=== PATIENT | female | born 1945 | race Caucasian/White ===

== ENCOUNTER 2024-02-27 12:03 | Emergency (ER) | payer OTHER, SELFPAY ==
[2024-02-27 12:39] VITALS: BP 200/103
[2024-02-27 12:57] LABS: % Basophils 0.3 % (0-2); % Eosinophils 1.4 % (0-6); % Immature Granulocytes 0.3 % (0-0.5); % Lymphocytes 31.3 % (20.5-51.1); % Monocytes 9.2 % (1.7-9.3); % Neutrophils 57.5 % (42.2-75.2); Absolute Eosinophils 0.1 10^3/uL (0-0.7); Absolute Lymphocytes 2.2 10^3/uL (1.2-3.4); Absolute Monocytes 0.7 10^3/uL (0.1-0.6); Hematocrit 38.4 % (37.0-47.0); Hemoglobin 12.4 g/dL (12.0-16.0); Mean Corp Hgb Conc. 32.3 g/dL (33.0-37.0); Mean Corpuscular Hgb 31.8 pg (27.0-31.0); Mean Corpuscular Volume 98.5 fL (81.0-99.0); Mean Platelet Volume 9.6 fL (7.4-10.4); Nucleated Red Blood Cells % 0 %; Platelet Count 226 10^3/uL (130-400); Red Cell Dist. Width 12.8 % (11.5-14.5)
[2024-02-27 13:09] LABS: ALT (SGPT) 19 U/L (0-35); AST (SGOT) 30 U/L (14-36); Albumin 4.4 g/dl (3.5-5.0); Alkaline Phosphatase 64 U/L (38-126); Blood Urea Nitrogen 26 mg/dl (7-17); Calcium 9.4 mg/dl (8.4-10.2); Carbon Dioxide 29 mmol/L (22-30); Chloride 106 mmol/L (98-107); Glucose 99 mg/dl (70-99); Potassium 4.3 mmol/L (3.5-5.1); Sodium 142 mmol/L (135-145); Total Bilirubin 0.3 mg/dl (0.2-1.3); Total Protein 7.6 g/dl (6.3-8.2); eGFR > 60.00
--- NOTE | 2024-02-27 14:07 | ED.GENMED ---
History of Present Illness
General
Chief Complaint: Musculo-Skeletal Complaint
Time Seen by Provider: 02/27/24 12:56
Travel History
Have you had any contact with someone who has COVID-19?: No
Do you have any symptoms of coronavirus? Fever > 100 degrees, chills, cough, shortness of breath, sore throat, loss of taste or smell, muscle aches, or headache?: No
History of Present Illness
History of Present Illness:
78-year-old female presents to the emergency department for evaluation of right foot and ankle swelling for the past 5 days. Denies any acute trauma. Able to bear weight with discomfort. No fevers or chills. Denies any wounds to the lower
extremity
Past History
Past History
ED Past Medical History: Other (bladder prolapse)
ED Past Surgical History: None
Social History
Tobacco: Non-smoker
Alcohol: None
Drug: None
Personal:
Living: with family
Employment: Not employed
Review of Systems
Review of Systems
Allergies reviewed?: Yes
All Other Systems: ROS reviewed and negative except as documented in HPI and ROS
Phy Exam
Physical Exam
Physical Exam:
GEN: Well appearing, NAD, WDWN
HEENT: Oral mucosa moist, no scleral icterus
Cardiac: Regular rate
Lung: No respiratory distress, no tachypnea
MSK: No gross deformity or injuries. 2+ pitting edema to the right lower extremity to the mid lower leg, nontender to palpation, mild warmth with changes of venous stasis dermatitis
Skin: Good color, no pallor or jaundice, no rashes
Neuro: AO x3, moves all extremities freely
Psych: Calm, cooperative
Course
Orders/Labs/Results
Orders:
Orders
02/27/24 12:45
US Periph Venous LOWER Ext RT Urgent
Comment:
Reason For Exam: right calf swelling with pain
02/27/24 12:47
Complete Blood Count/With Diff Urgent
Comprehensive Metabolic Panel Urgent
Abnormal Lab Results
02/27/24
12:47
RBC 3.90 L 10^6/uL
(4.20-5.40)
MCH 31.8 H pg
(27.0-31.0)
MCHC 32.3 L g/dL
(33.0-37.0)
Absolute Monos (auto) 0.7 H 10^3/uL
(0.1-0.6)
BUN 26 H mg/dl
(7-17)
02/27/24 12:47
02/27/24 12:47
Vital Signs
Initial and Last Documented VS:
Initial Vital Signs
Temp Pulse Resp BP Pulse Ox
97.7 F 77 16 200/103 98
02/27/24 12:39 02/27/24 12:39 02/27/24 12:39 02/27/24 12:39 02/27/24 12:39
Last Documented Vital Signs
Temp Pulse Resp BP Pulse Ox
97.7 F 80 18 202/105 99
02/27/24 12:39 02/27/24 14:31 02/27/24 14:31 02/27/24 14:31 02/27/24 14:31
MDM/Problems Addressed
MDM/Problems Addressed:
Workup was unremarkable, no evidence for DVT. Patient started on oral antibiotics empirically, recommend compression and elevation for at least 24 to 48 hours conservatively before starting antibiotics. She has noted to be markedly hypertensive in
the emergency department, recommend she follow-up with her primary care physician regarding this that she has no symptoms of hypertensive urgency at this time
*Critical Care Note
Total Time (30-74mins, 75-104mins- exclusive of procedures): Not Applicable
ED Attending Note
-
Portions of this chart may have been created with voice recognition software.� Occasional wrong word or��sound alike� substitutions may have occurred due to the inherent limitations of voice recognition software.
Discharge Plan
Departure
Patient Disposition: Home (Routine Discharge)
Date of Disposition: 02/27/24
Time of Disposition: 14:07
Patient with high blood pressure during this ER visit?: Yes
Discharge Problem:
Edema of right lower leg
Instructions: Swelling
Prescriptions:
New
cephalexin 500 mg capsule
500 mg PO TID 7 Days Qty: 21 0RF
No Action
cefdinir 300 mg capsule
300 mg PO Q12H Qty: 14 0RF
phenazopyridine [Pyridium] 200 mg tablet
200 mg PO TID PRN (Reason: bladder pain) Qty: 6 0RF
Activity Restrictions/Additional Instructions:
This could be increased edema (fluid) build up related to your chronic vein insufficiency, or it could potentially be due to a superficial skin infection. If your symptoms do not improve within 48 hours of starting compression and elevation, please
start the antibiotic I have sent to your pharmacy
Interventions
Interventions:
*Risk Screen - Suicide Last Done: 02/27/24 13:33
*Neglect/Abuse Screening Last Done: 02/27/24 13:33
*ED COVID-19 Vaccine History Last Done: 02/27/24 12:39
*Nursing Disposition Last Done: 02/27/24 14:39
ED-Musculoskeletal Assessment Last Done: 02/27/24 13:33
Discharge Date and Time
Discharge Date/Time: 02/27/24 14:40
Print Language: KISWAHILI
[2024-02-27 14:31] VITALS: BP 202/105
== END 2024-02-27 14:40 | disposition home or self-care (01) ==
LOC: EMR 12:03
PROVIDERS: Emergency Medicine; EMERGENCY PHYSICIAN Emergency Medicine; FAMILY PHYSICIAN Family Medicine
DX: R60.9 Edema, unspecified (principal); R03.0 Elevated blood-pressure reading, without diagnosis of hypertension
CPT/HCPCS: 99284; 80053; 85025; 93971

== ENCOUNTER → 2024-03-02 12:28 | Outpatient (REF) | payer OTHER, SELFPAY | LOC: RAD 12:28 | PROVIDERS: ATTENDING PHYSICIAN Family Medicine | DX: M79.89 Other specified soft tissue disorders (principal) | CPT/HCPCS: 73610; 73630 ==

== ENCOUNTER → 2024-03-08 14:08 | Outpatient (REF) | payer OTHER, SELFPAY | LOC: RAD 14:08 | PROVIDERS: ATTENDING PHYSICIAN Family Medicine | DX: M79.661 Pain in right lower leg (principal); M79.89 Other specified soft tissue disorders | CPT/HCPCS: 93971 ==

== ENCOUNTER → 2024-03-20 13:11 | Outpatient (REF) | payer OTHER, SELFPAY | LOC: PAVMRI 13:11 | PROVIDERS: ATTENDING PHYSICIAN Physician Assistant Surgical; FAMILY PHYSICIAN Family Medicine | DX: M25.571 Pain in right ankle and joints of right foot (principal) | CPT/HCPCS: 73721 ==

== ENCOUNTER → 2024-03-28 10:53 | Outpatient (REF) | payer OTHER, SELFPAY | LOC: HWRAD 10:53 | PROVIDERS: ATTENDING PHYSICIAN Family Medicine; REFERRING PHYSICIAN Surgery Vascular Surgery | DX: M79.89 Other specified soft tissue disorders (principal); I87.2 Venous insufficiency (chronic) (peripheral) | CPT/HCPCS: 93970 ==

== ENCOUNTER → 2024-04-13 09:01 | Outpatient (REF) | payer OTHER, SELFPAY | LOC: RAD 09:01 | PROVIDERS: ATTENDING PHYSICIAN Family Medicine | DX: I82.90 Acute embolism and thrombosis of unspecified vein (principal) | CPT/HCPCS: 93971 ==

== ENCOUNTER → 2024-06-12 08:04 | Outpatient (REF) | payer OTHER, SELFPAY | LOC: HWEVLT 08:04 | PROVIDERS: ATTENDING PHYSICIAN Radiology Diagnostic Radiology | DX: I83.891 Varicose veins of right lower extremity with other complications (principal) | CPT/HCPCS: 36478; C1769 ==

== ENCOUNTER → 2024-06-26 11:07 | Outpatient (REF) | payer OTHER, SELFPAY | LOC: HWEVLT 11:07 | PROVIDERS: ATTENDING PHYSICIAN Radiology Vascular & Interventional Radiology | DX: I83.891 Varicose veins of right lower extremity with other complications (principal) | CPT/HCPCS: 93971 ==

== ENCOUNTER → 2024-07-12 12:34 | Outpatient (REF) | payer OTHER, SELFPAY | LOC: WOUND 12:34 | PROVIDERS: ATTENDING PHYSICIAN Surgery; FAMILY PHYSICIAN Family Medicine | DX: I87.311 Chronic venous hypertension (idiopathic) with ulcer of right lower extremity (principal); L97.312 Non-pressure chronic ulcer of right ankle with fat layer exposed; I73.9 Peripheral vascular disease, unspecified; I87.2 Venous insufficiency (chronic) (peripheral); G89.29 Other chronic pain; Z79.1 Long term (current) use of non-steroidal anti-inflammatories (NSAID) | CPT/HCPCS: 11042; 99204 ==

== ENCOUNTER → 2024-07-24 13:52 | Outpatient (REF) | payer OTHER, SELFPAY | LOC: WOUND 13:52 | PROVIDERS: ATTENDING PHYSICIAN Surgery; FAMILY PHYSICIAN Family Medicine | DX: I87.311 Chronic venous hypertension (idiopathic) with ulcer of right lower extremity (principal); L97.312 Non-pressure chronic ulcer of right ankle with fat layer exposed; I73.9 Peripheral vascular disease, unspecified; I87.2 Venous insufficiency (chronic) (peripheral); G89.29 Other chronic pain; Z79.1 Long term (current) use of non-steroidal anti-inflammatories (NSAID) | CPT/HCPCS: 97597 ==

== ENCOUNTER → 2024-08-01 09:56 | Outpatient (REF) | payer OTHER, SELFPAY | LOC: RAD 09:56 | PROVIDERS: ATTENDING PHYSICIAN Surgery; FAMILY PHYSICIAN Family Medicine | DX: I87.311 Chronic venous hypertension (idiopathic) with ulcer of right lower extremity (principal); I73.9 Peripheral vascular disease, unspecified | CPT/HCPCS: 93922; 93925 ==

== ENCOUNTER → 2024-08-07 09:49 | Outpatient (REF) | payer OTHER, SELFPAY | LOC: WOUND 09:49 | PROVIDERS: ATTENDING PHYSICIAN Surgery; FAMILY PHYSICIAN Family Medicine | DX: I87.313 Chronic venous hypertension (idiopathic) with ulcer of bilateral lower extremity (principal); L97.322 Non-pressure chronic ulcer of left ankle with fat layer exposed; L97.312 Non-pressure chronic ulcer of right ankle with fat layer exposed; I73.9 Peripheral vascular disease, unspecified; I87.2 Venous insufficiency (chronic) (peripheral); Z79.1 Long term (current) use of non-steroidal anti-inflammatories (NSAID); G89.29 Other chronic pain | CPT/HCPCS: 11042 ==

== ENCOUNTER → 2024-08-21 09:51 | Outpatient (REF) | payer OTHER, SELFPAY | LOC: WOUND 09:51 | PROVIDERS: ATTENDING PHYSICIAN Surgery; FAMILY PHYSICIAN Family Medicine | DX: I87.313 Chronic venous hypertension (idiopathic) with ulcer of bilateral lower extremity (principal); L97.322 Non-pressure chronic ulcer of left ankle with fat layer exposed; L97.312 Non-pressure chronic ulcer of right ankle with fat layer exposed; I73.9 Peripheral vascular disease, unspecified; I87.2 Venous insufficiency (chronic) (peripheral); G89.29 Other chronic pain; Z79.1 Long term (current) use of non-steroidal anti-inflammatories (NSAID) | CPT/HCPCS: 11042 ==

== ENCOUNTER → 2024-09-04 09:48 | Outpatient (REF) | payer OTHER, SELFPAY | LOC: WOUND 09:48 | PROVIDERS: ATTENDING PHYSICIAN Surgery; FAMILY PHYSICIAN Family Medicine | DX: I87.313 Chronic venous hypertension (idiopathic) with ulcer of bilateral lower extremity (principal); L97.322 Non-pressure chronic ulcer of left ankle with fat layer exposed; L97.312 Non-pressure chronic ulcer of right ankle with fat layer exposed; I73.9 Peripheral vascular disease, unspecified; I87.2 Venous insufficiency (chronic) (peripheral); G89.29 Other chronic pain; Z79.1 Long term (current) use of non-steroidal anti-inflammatories (NSAID) | CPT/HCPCS: 11042; 97597 ==

== ENCOUNTER → 2024-09-18 09:46 | Outpatient (REF) | payer OTHER, SELFPAY | LOC: WOUND 09:46 | PROVIDERS: ATTENDING PHYSICIAN Surgery; FAMILY PHYSICIAN Family Medicine | DX: I87.313 Chronic venous hypertension (idiopathic) with ulcer of bilateral lower extremity (principal); L97.322 Non-pressure chronic ulcer of left ankle with fat layer exposed; L97.312 Non-pressure chronic ulcer of right ankle with fat layer exposed; I73.9 Peripheral vascular disease, unspecified; I87.2 Venous insufficiency (chronic) (peripheral); G89.29 Other chronic pain; Z79.1 Long term (current) use of non-steroidal anti-inflammatories (NSAID) | CPT/HCPCS: 11042; 97597 ==

== ENCOUNTER → 2024-09-19 11:52 | Outpatient (REF) | payer OTHER, SELFPAY | LOC: WDC 11:52 | PROVIDERS: ATTENDING PHYSICIAN Family Medicine | DX: Z12.31 Encounter for screening mammogram for malignant neoplasm of breast (principal) | CPT/HCPCS: 77063; 77067 ==

== ENCOUNTER → 2024-10-26 10:12 | Outpatient (REF) | payer OTHER, SELFPAY | LOC: WOUND 10:12 | PROVIDERS: ATTENDING PHYSICIAN Surgery; FAMILY PHYSICIAN Family Medicine | DX: I87.313 Chronic venous hypertension (idiopathic) with ulcer of bilateral lower extremity (principal); L97.322 Non-pressure chronic ulcer of left ankle with fat layer exposed; L97.312 Non-pressure chronic ulcer of right ankle with fat layer exposed; I73.9 Peripheral vascular disease, unspecified; I87.2 Venous insufficiency (chronic) (peripheral); G89.29 Other chronic pain; Z79.1 Long term (current) use of non-steroidal anti-inflammatories (NSAID) | CPT/HCPCS: 11042 ==

== ENCOUNTER → 2024-11-26 09:49 | Outpatient (REF) | payer OTHER, SELFPAY | LOC: WOUND 09:49 | PROVIDERS: ATTENDING PHYSICIAN Surgery; FAMILY PHYSICIAN Family Medicine | DX: I87.313 Chronic venous hypertension (idiopathic) with ulcer of bilateral lower extremity (principal); L97.322 Non-pressure chronic ulcer of left ankle with fat layer exposed; L97.312 Non-pressure chronic ulcer of right ankle with fat layer exposed; I73.9 Peripheral vascular disease, unspecified; I87.2 Venous insufficiency (chronic) (peripheral); Z79.1 Long term (current) use of non-steroidal anti-inflammatories (NSAID); G89.29 Other chronic pain | CPT/HCPCS: 11042 ==

== ENCOUNTER → 2024-12-24 09:49 | Outpatient (REF) | payer OTHER, SELFPAY | LOC: WOUND 09:49 | PROVIDERS: ATTENDING PHYSICIAN Surgery; FAMILY PHYSICIAN Family Medicine | DX: I87.313 Chronic venous hypertension (idiopathic) with ulcer of bilateral lower extremity (principal); L97.322 Non-pressure chronic ulcer of left ankle with fat layer exposed; I73.9 Peripheral vascular disease, unspecified; I87.2 Venous insufficiency (chronic) (peripheral); Z79.1 Long term (current) use of non-steroidal anti-inflammatories (NSAID); G89.29 Other chronic pain | CPT/HCPCS: 11042 ==

== ENCOUNTER → 2025-01-21 09:48 | Outpatient (REF) | payer OTHER, SELFPAY | LOC: WOUND 09:48 | PROVIDERS: ATTENDING PHYSICIAN Surgery; FAMILY PHYSICIAN Family Medicine | DX: I87.313 Chronic venous hypertension (idiopathic) with ulcer of bilateral lower extremity (principal); L97.322 Non-pressure chronic ulcer of left ankle with fat layer exposed; I73.9 Peripheral vascular disease, unspecified; G89.29 Other chronic pain; I87.2 Venous insufficiency (chronic) (peripheral); Z79.1 Long term (current) use of non-steroidal anti-inflammatories (NSAID) | CPT/HCPCS: 11042 ==

== ENCOUNTER → 2025-02-05 09:44 | Outpatient (REF) | payer OTHER, SELFPAY | LOC: WOUND 09:44 | PROVIDERS: ATTENDING PHYSICIAN Surgery; FAMILY PHYSICIAN Family Medicine | DX: I87.313 Chronic venous hypertension (idiopathic) with ulcer of bilateral lower extremity (principal); L97.322 Non-pressure chronic ulcer of left ankle with fat layer exposed; I73.9 Peripheral vascular disease, unspecified; I87.2 Venous insufficiency (chronic) (peripheral); G89.29 Other chronic pain; Z79.1 Long term (current) use of non-steroidal anti-inflammatories (NSAID) | CPT/HCPCS: 99213 ==

== ENCOUNTER → 2025-02-19 09:45 | Outpatient (REF) | payer OTHER, SELFPAY | LOC: WOUND 09:45 | PROVIDERS: ATTENDING PHYSICIAN Surgery; FAMILY PHYSICIAN Family Medicine | DX: I87.313 Chronic venous hypertension (idiopathic) with ulcer of bilateral lower extremity (principal); L97.322 Non-pressure chronic ulcer of left ankle with fat layer exposed; I73.9 Peripheral vascular disease, unspecified; I87.2 Venous insufficiency (chronic) (peripheral); G89.29 Other chronic pain; Z79.01 Long term (current) use of anticoagulants | CPT/HCPCS: 97597 ==

== ENCOUNTER → 2025-03-12 10:02 | Outpatient (REF) | payer OTHER, SELFPAY | LOC: WOUND 10:02 | PROVIDERS: ATTENDING PHYSICIAN Surgery; FAMILY PHYSICIAN Family Medicine | DX: I87.313 Chronic venous hypertension (idiopathic) with ulcer of bilateral lower extremity (principal); L97.322 Non-pressure chronic ulcer of left ankle with fat layer exposed; I73.9 Peripheral vascular disease, unspecified; I87.2 Venous insufficiency (chronic) (peripheral); G89.29 Other chronic pain; Z79.1 Long term (current) use of non-steroidal anti-inflammatories (NSAID) | CPT/HCPCS: 97597 ==

== ENCOUNTER → 2025-04-01 10:00 | Outpatient (REF) | payer OTHER, SELFPAY | LOC: WOUND 10:00 | PROVIDERS: ATTENDING PHYSICIAN Surgery; FAMILY PHYSICIAN Family Medicine | DX: I87.313 Chronic venous hypertension (idiopathic) with ulcer of bilateral lower extremity (principal); L97.322 Non-pressure chronic ulcer of left ankle with fat layer exposed; I73.9 Peripheral vascular disease, unspecified; I87.2 Venous insufficiency (chronic) (peripheral); G89.29 Other chronic pain; Z79.1 Long term (current) use of non-steroidal anti-inflammatories (NSAID) | CPT/HCPCS: 99213 ==

== ENCOUNTER → 2025-04-16 09:49 | Outpatient (REF) | payer OTHER, SELFPAY | LOC: WOUND 09:49 | PROVIDERS: ATTENDING PHYSICIAN Surgery; FAMILY PHYSICIAN Family Medicine | DX: I87.313 Chronic venous hypertension (idiopathic) with ulcer of bilateral lower extremity (principal); L97.322 Non-pressure chronic ulcer of left ankle with fat layer exposed; I73.9 Peripheral vascular disease, unspecified; G89.29 Other chronic pain; I87.2 Venous insufficiency (chronic) (peripheral); Z79.1 Long term (current) use of non-steroidal anti-inflammatories (NSAID) | CPT/HCPCS: 99212 ==

== ENCOUNTER → 2025-05-14 10:16 | Outpatient (REF) | payer OTHER, SELFPAY | LOC: WOUND 10:16 | PROVIDERS: ATTENDING PHYSICIAN Surgery; FAMILY PHYSICIAN Family Medicine | DX: L97.222 Non-pressure chronic ulcer of left calf with fat layer exposed (principal); L88 Pyoderma gangrenosum; I77.6 Arteritis, unspecified; I87.2 Venous insufficiency (chronic) (peripheral); I87.8 Other specified disorders of veins; Z79.1 Long term (current) use of non-steroidal anti-inflammatories (NSAID) | CPT/HCPCS: 11042; 99213 ==

== ENCOUNTER → 2025-05-21 09:50 | Outpatient (REF) | payer OTHER, SELFPAY | LOC: WOUND 09:50 | PROVIDERS: ATTENDING PHYSICIAN Surgery; FAMILY PHYSICIAN Family Medicine | DX: L97.222 Non-pressure chronic ulcer of left calf with fat layer exposed (principal); L88 Pyoderma gangrenosum; I77.6 Arteritis, unspecified; I87.2 Venous insufficiency (chronic) (peripheral); I87.8 Other specified disorders of veins; Z79.1 Long term (current) use of non-steroidal anti-inflammatories (NSAID) | CPT/HCPCS: 99213 ==

== ENCOUNTER → 2025-05-28 09:50 | Outpatient (REF) | payer OTHER, SELFPAY | LOC: WOUND 09:50 | PROVIDERS: ATTENDING PHYSICIAN Surgery; FAMILY PHYSICIAN Family Medicine | DX: L97.222 Non-pressure chronic ulcer of left calf with fat layer exposed (principal); L88 Pyoderma gangrenosum; I77.6 Arteritis, unspecified; I87.2 Venous insufficiency (chronic) (peripheral); I87.8 Other specified disorders of veins; Z79.1 Long term (current) use of non-steroidal anti-inflammatories (NSAID) | CPT/HCPCS: 11104; 11105; 88305; 99213 ==

== ENCOUNTER → 2025-06-11 09:52 | Outpatient (REF) | payer OTHER, SELFPAY | LOC: WOUND 09:52 | PROVIDERS: ATTENDING PHYSICIAN Surgery; FAMILY PHYSICIAN Family Medicine | DX: L97.222 Non-pressure chronic ulcer of left calf with fat layer exposed (principal); L88 Pyoderma gangrenosum; I77.6 Arteritis, unspecified; I87.2 Venous insufficiency (chronic) (peripheral); I87.8 Other specified disorders of veins; Z79.1 Long term (current) use of non-steroidal anti-inflammatories (NSAID) | CPT/HCPCS: 99213 ==

== ENCOUNTER → 2025-06-25 09:18 | Outpatient (REF) | payer OTHER, SELFPAY | LOC: WOUND 09:18 | PROVIDERS: ATTENDING PHYSICIAN Surgery; FAMILY PHYSICIAN Family Medicine | DX: L97.222 Non-pressure chronic ulcer of left calf with fat layer exposed (principal); L88 Pyoderma gangrenosum; I77.6 Arteritis, unspecified; I87.2 Venous insufficiency (chronic) (peripheral); I87.8 Other specified disorders of veins; Z79.1 Long term (current) use of non-steroidal anti-inflammatories (NSAID) | CPT/HCPCS: 99213 ==

== ENCOUNTER → 2025-07-01 10:49 | Outpatient (REF) | payer OTHER, SELFPAY | LOC: WOUND 10:49 | PROVIDERS: ATTENDING PHYSICIAN Surgery; FAMILY PHYSICIAN Family Medicine | DX: L97.222 Non-pressure chronic ulcer of left calf with fat layer exposed (principal); L88 Pyoderma gangrenosum; I77.6 Arteritis, unspecified; I87.2 Venous insufficiency (chronic) (peripheral); Z79.1 Long term (current) use of non-steroidal anti-inflammatories (NSAID); I87.8 Other specified disorders of veins | CPT/HCPCS: 99214 ==

== ENCOUNTER 2025-07-06 10:53 | Emergency (ER) | payer OTHER, SELFPAY ==
[2025-07-06 11:02] VITALS: BP 177/96
--- NOTE | 2025-07-06 13:14 | ED.GENMED ---
History of Present Illness
General
Chief Complaint: DVT/Possible Blood Clot
Time Seen by Provider: 07/06/25 12:56
History of Present Illness
History of Present Illness:
80-year-old female with history of venous insufficiency presents to the emergency department for evaluation of redness swelling and pain to the left lower leg, she has a chronic wound for the past several months to the left posterior calf and is
following with wound care. 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 Over the past 3 weeks she has had progressively worsening edema and erythema, was told this was likely related to the biopsy but has not been on any
antibiotics. Denies fevers or chills. No difficulty walking.
Past History
Past History
ED Past Medical History: Other (bladder prolapse)
ED Past Surgical History: None
Social History
Tobacco: Non-smoker
Alcohol: None
Drug: None
Personal:
Living: with family
Employment: Not employed
Review of Systems
Review of Systems
Allergies reviewed?: Yes
All Other Systems: ROS reviewed and negative except as documented in HPI and ROS
Phy Exam
Physical Exam
Physical Exam:
GEN: Well appearing, NAD, WDWN
HEENT: Oral mucosa moist, no scleral icterus
Cardiac: Regular rate
Lung: No respiratory distress, no tachypnea
MSK: No gross deformity or injuries
Skin: Good color, no pallor or jaundice, large ulceration to the left posterior calf with granulation tissue at the base, no purulent discharge. Moderate erythema and swelling extending from the wound proximally and distally along the calf and
anterior leg with exquisite tenderness to palpation
Neuro: AO x3, moves all extremities freely
Psych: Calm, cooperative
Course
Orders/Labs/Results
Orders:
Orders
07/06/25 10:55
Legs, left US [US Periph Venous LOWER Ext LT] Urgent
Comment:
Reason For Exam: pain swelling
Vital Signs
Initial and Last Documented VS:
Initial Vital Signs
Temp Pulse Resp BP Pulse Ox
97.4 F 90 16 177/96 98
07/06/25 11:02 07/06/25 11:02 07/06/25 11:02 07/06/25 11:02 07/06/25 11:02
Last Documented Vital Signs
Temp Pulse Resp BP Pulse Ox
97.4 F 90 16 177/96 98
07/06/25 11:02 07/06/25 11:02 07/06/25 11:02 07/06/25 11:02 07/06/25 13:14
MDM/Problems Addressed
MDM/Problems Addressed:
The area around the wound appears cellulitic at this time and we will treat appropriately with course of oral antibiotics. Encouraged continued wound care. At this time she is afebrile and well-appearing do not see any indication for labs or IV
antibiotics
*Pulse Oximetry
SaO2: 98
Oxygen Mode of Delivery: Room air
Patient hypoxic: no
*Critical Care Note
Total Time (30-74mins, 75-104mins- exclusive of procedures): Not Applicable
ED Attending Note
-
Portions of this chart may have been created with voice recognition software.� Occasional wrong word or��sound alike� substitutions may have occurred due to the inherent limitations of voice recognition software.
Discharge Plan
Departure
Patient Disposition: Home (Routine Discharge)
Date of Disposition: 07/06/25
Time of Disposition: 13:14
Patient with high blood pressure during this ER visit?: No
Discharge Problem:
Cellulitis of left lower extremity, Leukoclastic vasculitis
Prescriptions:
New
cephalexin 500 mg capsule
500 mg PO QID 7 Days Qty: 28 0RF
No Action
cefdinir 300 mg capsule
300 mg PO Q12H Qty: 14 0RF
phenazopyridine [Pyridium] 200 mg tablet
200 mg PO TID PRN (Reason: bladder pain) Qty: 6 0RF
cephalexin 500 mg capsule
500 mg PO TID 7 Days Qty: 21 0RF
Referrals:
Jarrell Grimes DO [Family Provider, Family Practice]
Interventions
Interventions:
*Risk Screen - Suicide Last Done: 07/06/25 11:02
*General Assessment Last Done: 07/06/25 13:51
*Neglect/Abuse Screening Last Done: 07/06/25 11:02
*ED- Fall Risk Assessment Last Done: 07/06/25 12:19
*ED COVID-19 Vaccine History Last Done: 07/06/25 12:49
*Nursing Disposition Last Done: 07/06/25 13:51
ED- Cardiac Assessment Last Done: 07/06/25 12:20
ED- Pulmonary Assessment Last Done: 07/06/25 12:20
ED-Peripheral Vascular Assessment Last Done: 07/06/25 12:20
ED-Skin Assessment Last Done: 07/06/25 12:20
Discharge Date and Time
Discharge Date/Time: 07/06/25 13:40
Print Language: SLOVENIAN
== END 2025-07-06 13:40 | disposition home or self-care (01) ==
LOC: EMR 10:53
PROVIDERS: EMERGENCY PHYSICIAN Student in an Organized Health Care Education/Training Program; FAMILY PHYSICIAN Family Medicine
DX: L03.116 Cellulitis of left lower limb (principal); I77.6 Arteritis, unspecified; G89.29 Other chronic pain
CPT/HCPCS: 99284; 93971

== ENCOUNTER 2025-07-09 20:20 | Inpatient (IN) | payer OTHER, SELFPAY ==
[2025-07-09] VITALS (9 sets, daily range): BP systolic 163–221; BP diastolic 74–110; BMI 20.1; BMI 19.3
[2025-07-09 15:21] LABS: Hematocrit 38.9 % (37.0-47.0); Hemoglobin 12.8 g/dL (12.0-16.0); Mean Corp Hgb Conc. 32.9 g/dL (33.0-37.0); Mean Corpuscular Volume 100.0 fL (81.0-99.0); Nucleated Red Blood Cells % 0 %; Platelet Count 294 10^3/uL (130-400); Red Cell Dist. Width 12.5 % (11.5-14.5)
[2025-07-09 15:39] LABS: ALT (SGPT) 19 U/L (0-35); AST (SGOT) 26 U/L (14-36); Albumin 4.5 g/dl (3.5-5.0); Alkaline Phosphatase 67 U/L (38-126); Blood Urea Nitrogen 26 mg/dl (7-17); Calcium 9.6 mg/dl (8.4-10.2); Carbon Dioxide 25 mmol/L (22-30); Chloride 108 mmol/L (98-107); Glucose 119 mg/dl (70-99); Potassium 4.8 mmol/L (3.5-5.1); Sodium 140 mmol/L (135-145); Total Protein 7.9 g/dl (6.3-8.2); eGFR 50.17
--- NOTE | 2025-07-09 18:39 | ED.GENMED ---
History of Present Illness
<Radu Anderson PA-C - Last Filed: 07/09/25 19:20>
General
Chief Complaint: Skin Problem
Time Seen by Provider: 07/09/25 17:57
History of Present Illness
History of Present Illness:
80-year-old female presents to the emergency department for nonimprovement of her left lower extremity chronic wound associated with redness and pain. I saw this patient 3 days ago for the same complaint at that time the DVT study was negative.
She has had this wound for several months and did have an outpatient biopsy performed by wound care which showed leukoclastic vasculitis. Saw her activities specialist today who referred her into the emergency department for further evaluation and
vascular surgery consultation. The patient does not have any claudication symptoms.
Past History
<Radu Anderson PA-C - Last Filed: 07/09/25 19:20>
Past History
ED Past Medical History: Other (bladder prolapse)
ED Past Surgical History: None
Social History
Tobacco: Non-smoker
Alcohol: None
Drug: None
Personal:
Living: with family
Employment: Not employed
Review of Systems
<Radu Anderson PA-C - Last Filed: 07/09/25 19:20>
Review of Systems
Allergies reviewed?: Yes
All Other Systems: ROS reviewed and negative except as documented in HPI and ROS
Phy Exam
<Radu Anderson PA-C - Last Filed: 07/09/25 19:20>
Physical Exam
Physical Exam:
GEN: Well appearing, NAD, WDWN
HEENT: Oral mucosa moist, no scleral icterus
Cardiac: Regular rate
Lung: No respiratory distress, no tachypnea
MSK: No gross deformity or injuries
Skin: Good color, no pallor or jaundice, large wound with central granulation tissue to the left posterior lower leg with moderate cellulitis extending proximally, diffuse edema of the left lower extremity. Left dorsalis pedis and posterior
tibialis pulses are strong
Neuro: AO x3, moves all extremities freely
Psych: Calm, cooperative
Course
<Radu Anderson PA-C - Last Filed: 07/09/25 19:20>
Orders/Labs/Results
Orders:
Orders
07/09/25 15:03
Complete Blood Count/With Diff Urgent
Comprehensive Metabolic Panel Urgent
Lactic Acid Q4H
Comment: ON ICE, CANCEL 2ND ORDER IF FIRST LACTIC ACID LEVEL <2
Blood Culture Urgent
RADHA Source: Blood/Venous
Specimen Description:
07/09/25 18:04
Blood Culture Urgent
RADHA Source: Blood/Venous
Specimen Description:
07/09/25 18:22
Vancomycin [Vancocin] 1,500 mg 0.9% Sodium Chloride 500 ml [Nss] 500 ml IV NOW
07/09/25 18:38
Labetalol HCl [Trandate] 10 mg IV NOW STA
07/09/25 18:58
Wound Culture [Wound/Abscess/Other Culture] Urgent
RADHA Source: Leg
Specimen Description: Left
Date Specimen was Collected: 07/09/25
Time Specimen was Collected: 19:00
07/09/25 19:00
Lactic Acid Q4H
Comment: ON ICE, CANCEL 2ND ORDER IF FIRST LACTIC ACID LEVEL <2
07/09/25 19:07
Oxycodone [Roxicodone] 5 mg PO NOW STA
Abnormal Lab Results
07/09/25
15:03
RBC 3.89 L 10^6/uL
(4.20-5.40)
MCV 100.0 H fL
(81.0-99.0)
MCH 32.9 H pg
(27.0-31.0)
MCHC 32.9 L g/dL
(33.0-37.0)
Abs Immat Gran (auto) 0.1 H 10^3/uL
(0-0.05)
Absolute Monos (auto) 0.8 H 10^3/uL
(0.1-0.6)
Immature Gran % 0.7 H %
(0-0.5)
Chloride 108 H mmol/L
(98-107)
BUN 26 H mg/dl
(7-17)
Creatinine 1.1 H mg/dL
(0.6-1.0)
Glucose 119 H mg/dl
(70-99)
07/09/25 15:03
07/09/25 15:03
Vital Signs
Initial and Last Documented VS:
Initial Vital Signs
Temp Pulse Resp BP Pulse Ox
98.2 F 110 18 182/110 96
07/09/25 14:53 07/09/25 14:53 07/09/25 14:53 07/09/25 14:53 07/09/25 14:53
Last Documented Vital Signs
Temp Pulse Resp BP Pulse Ox
98.0 F 93 15 211/105 98
07/09/25 17:42 07/09/25 19:00 07/09/25 19:00 07/09/25 19:00 07/09/25 18:41
Gonzalolt;Shukri Christianson, DO - Last Filed: 07/09/25 18:56>
Orders/Labs/Results
Orders:
Orders
07/09/25 15:03
Complete Blood Count/With Diff Urgent
Comprehensive Metabolic Panel Urgent
Lactic Acid Q4H
Comment: ON ICE, CANCEL 2ND ORDER IF FIRST LACTIC ACID LEVEL <2
Blood Culture Urgent
RADHA Source: Blood/Venous
Specimen Description:
07/09/25 18:04
Blood Culture Urgent
RADHA Source: Blood/Venous
Specimen Description:
07/09/25 18:22
Vancomycin [Vancocin] 1,500 mg 0.9% Sodium Chloride 500 ml [Nss] 500 ml IV NOW
07/09/25 18:38
Labetalol HCl [Trandate] 10 mg IV NOW STA
07/09/25 18:58
Wound Culture [Wound/Abscess/Other Culture] Urgent
RADHA Source: Leg
Specimen Description: Left
Date Specimen was Collected: 07/09/25
Time Specimen was Collected: 19:00
07/09/25 19:00
Lactic Acid Q4H
Comment: ON ICE, CANCEL 2ND ORDER IF FIRST LACTIC ACID LEVEL <2
07/09/25 19:07
Oxycodone [Roxicodone] 5 mg PO NOW STA
Abnormal Lab Results
07/09/25
15:03
RBC 3.89 L 10^6/uL
(4.20-5.40)
MCV 100.0 H fL
(81.0-99.0)
MCH 32.9 H pg
(27.0-31.0)
MCHC 32.9 L g/dL
(33.0-37.0)
Abs Immat Gran (auto) 0.1 H 10^3/uL
(0-0.05)
Absolute Monos (auto) 0.8 H 10^3/uL
(0.1-0.6)
Immature Gran % 0.7 H %
(0-0.5)
Chloride 108 H mmol/L
(98-107)
BUN 26 H mg/dl
(7-17)
Creatinine 1.1 H mg/dL
(0.6-1.0)
Glucose 119 H mg/dl
(70-99)
07/09/25 15:03
07/09/25 15:03
Vital Signs
Initial and Last Documented VS:
Initial Vital Signs
Temp Pulse Resp BP Pulse Ox
98.2 F 110 18 182/110 96
07/09/25 14:53 07/09/25 14:53 07/09/25 14:53 07/09/25 14:53 07/09/25 14:53
Last Documented Vital Signs
Temp Pulse Resp BP Pulse Ox
98.0 F 93 15 211/105 98
07/09/25 17:42 07/09/25 19:00 07/09/25 19:00 07/09/25 19:00 07/09/25 18:41
<Radu Anderson PA-C - Last Filed: 07/09/25 19:20>
MDM/Problems Addressed
MDM/Problems Addressed:
Patient does not require vascular surgery consultation rather may benefit from infectious disease and/or rheumatology evaluation. Nevertheless she has persistent cellulitis that is not improving despite oral antibiotics we will admit her for IV
antibiotics and further management. She is also noted be markedly hypertensive with no signs of endorgan damage, will medicate with IV labetalol as she is currently not on any home antihypertensives
<Radu Anderson PA-C - Last Filed: 07/09/25 19:20>
*Pulse Oximetry
SaO2: 98
Oxygen Mode of Delivery: Room air
Patient hypoxic: no
*Critical Care Note
Total Time (30-74mins, 75-104mins- exclusive of procedures): Not Applicable
ED Attending Note
<Radu Anderson PA-C - Last Filed: 07/09/25 19:20>
-
Portions of this chart may have been created with voice recognition software.� Occasional wrong word or��sound alike� substitutions may have occurred due to the inherent limitations of voice recognition software.
<Shukri Christianson DO - Last Filed: 07/09/25 18:56>
ED Attending Note
Patient seen and examined by attending physician: Yes
I performed the substantive portion of visit, reviewed & personally made and approve the management plan that is documented in note by myself or BETHANY.: Yes
ED Attending Note:
I evaluated patient at bedside. I also added wound culture to the relatively large lesion at the posterior distal left lower extremity. She states that she was sent here for admission by wound care. She states that recent biopsy was consistent
with vasculitis. She has already been on oral antibiotics as an outpatient.
Discharge Plan
Departure
Patient Disposition: Admit
Date of Disposition: 07/09/25
Time of Disposition: 18:41
Admit to: Med/Surg
Presentation/result/management discussed w/ accepting MD/DO: Hospitalist
Discharge Problem:
Cellulitis of left lower extremity, Leukoclastic Vasculitis
Prescriptions:
No Action
cefdinir 300 mg capsule
300 mg PO Q12H Qty: 14 0RF
phenazopyridine [Pyridium] 200 mg tablet
200 mg PO TID PRN (Reason: bladder pain) Qty: 6 0RF
cephalexin 500 mg capsule
500 mg PO TID 7 Days Qty: 21 0RF
cephalexin 500 mg capsule
500 mg PO QID 7 Days Qty: 28 0RF
Referrals:
Jarrell Grimes DO [Family Provider, Family Practice]
Interventions
Interventions:
*Risk Screen - Suicide Last Done: 07/09/25 14:55
*Neglect/Abuse Screening Last Done: 07/09/25 14:55
ED-Skin Assessment Last Done: 07/09/25 17:42
Discharge Date and Time
Print Language: BAHRAINI
[2025-07-09] MEDS: ROXICODONE 5 MG PO (19:33)
[2025-07-09] MEDS: TRANDATE 10 MG IV (19:33)
--- NOTE | 2025-07-09 19:51 | HPS.HSE ---
Family Physician
-
Family Physician: Jarrell Grimes DO
Chief Complaint
-
LLE Wound
History of Present Illness
Patient is an 80y F with PMH significant for chronic venous insufficiency and LLE wound followed by Dr. Sanchez who presents to ED at the direction of her wound care physician for L lower extremity wound. Patient states that wound initially
started in April. She has been followed by Wound Care since that time. Patient states that she had a biopsy of the lesion a few weeks ago (05/28/25). She notes that the pain and size of the wound have increased since that biopsy. She was seen here
in the ED on 07/06 and prescribed Keflex for suspected cellulitis. Her symptoms have not improved.
She was seen by Wound Care today and referred to the ED for further evaluation.
Patient denies any systemic complaints including fevers / chills, N/V/D, etc.
Medical History
Past Medical History
Past Medical History: Reports Other
Additional Past Medical History:
Chronic Venous Insufficiency
Hypertension
Osteoporosis
Past Surgical History: Reports Other
Additional Past Surgical History:
RLE EVLT (2023)
Social History
Tobacco: Non-smoker
Alcohol: None
Drug: None
Family History
Family History: Not pertinent
Allergies / Home Medications
Allergies reflects when Allergies were last updated in [facility].
Home Medications with original date entered in [facility]
Allergy/Medication List:
Allergies
Allergy/AdvReac Type Severity Reaction Status Date / Time
No Known Allergies Allergy Verified 07/09/25 18:22
Home Medications
acetaminophen 325 mg tablet (Tylenol) 650 mg PO QID PRN pain 07/09/25
cephalexin 500 mg capsule 500 mg PO BID 07/09/25
clobetasol 0.05 % topical cream 1 applic topical BID 07/09/25
diclofenac sodium 50 mg tablet,delayed release 50 mg PO Q12H PRN pain 07/09/25
metoprolol succinate 25 mg tablet,extended release 24 hr 12.5 mg PO DAILY 07/09/25
raloxifene 60 mg tablet 60 mg PO DAILY 07/09/25
Review of Systems
-
History Source: Patient
A 12 point ROS was completed and negative except as noted: Yes
Constitutional: Denies Fever or Chills
Respiratory: Denies Cough or Trouble Breathing
Cardiac: Denies Chest Pain or Palpitations
Abdomen/GI: Denies Abdominal Pain, Nausea, Vomiting or Diarrhea
: Denies Dysuria or Flank Pain
Skin: Reports Other (L ankle wound / pain.)
Neurological: Denies Dizzy or Headache
Physical Exam
Vital Signs
Vital Signs
Temp Pulse Resp BP Pulse Ox
98.0 F 97 15 211/114 98
07/09/25 17:42 07/09/25 19:33 07/09/25 19:00 07/09/25 19:33 07/09/25 18:41
Physical Exam
General: Other (80y F in no acute distress.)
HEENT: Moist mucous membranes
Respiratory: Clear; No Wheezes, Rales or Rhonchi
Cardiac: S1/S2 and Regular Rhythm; No Murmur
GI: Soft, Non Tender, Non Distended and Normal Bowel Sounds
Skin: Other (Wound posterior aspect of the L ankle / lower leg extending to medial and lateral aspects. Minimal surrounding redness and scattered petechiae. No increased warmth.)
Neuro: AO x 3
Laboratory Results
-
07/09/25 15:03
07/09/25 15:03
Laboratory Results
Lactic Acid 1.0 mmol/L (0.7-2.0) 07/09/25 19:12
Total Bilirubin 0.3 mg/dl (0.2-1.3) 07/09/25 15:03
AST 26 U/L (14-36) 07/09/25 15:03
ALT 19 U/L (0-35) 07/09/25 15:03
Alkaline Phosphatase 67 U/L (38-126) 07/09/25 15:03
Impression/Plan
-
A/P: Patient is an 80y F with PMH significant for L ankle wound and chronic venous insufficiency who presents to ED for evaluation of worsening L ankle wound.
Leukocytoclastic Vasculitis
Left Ankle Wound
- Admit for further evaluation and treatment.
- Biopsy results from 05/28 reviewed and shows leukocytoclastic vasculitis.
- ? secondary to med effect, underlying infection, etc.
- No significant evidence of acute infectious process.
- Would observe off of further abx for now.
- PO prednisone for vasculitis and monitor for any clinical changes.
- Check inflammatory labs.
- Wound Care eval for local care recommendations.
- ID eval re: any benefit to additional abx treatment.
Uncontrolled Hypertension
- Patient with likely long history of uncontrolled hypertension couched as 'white coat syndrome'.
- Was given recent Rx from PCP for Toprol which she has yet to begin.
- Has had adverse effects in the past due to amlodipine.
- Start Toprol BID for now and titrate as needed for BP control.
- IV hydralazine for very high BP.
- Adjust regimen as needed during stay for improved control. Will likely require multiple agents.
Osteoporosis
- Hold Evista for now.
DVT Prophylaxis: Lovenox
Code Status: Full
[2025-07-09] MEDS: DELTASONE 40 MG PO (20:10)
[2025-07-09 23:36] LABS: C-Reactive Protein 15.60 mg/L (0.0-10.00)
[2025-07-09] MEDS: TOPROL XL 25 MG PO (23:42)
--- NOTE | 2025-07-10 00:49 | PTCARENOTE ---
Pt [id number] able to make his needs known.Denies need of pain meds at this time.Pt asking about her medications B[employer]INFORMAT[employer] TECHNICIAN made aware, orders to hold on them at this time.Pt made aware of it. Wound care consult placed for pt.Pt oriented to room & call betancur in
reach.
[2025-07-10] MEDS: ROXICODONE 5 MG PO ×5 (01:22→22:24)
[2025-07-10 03:23] VITALS: BP 131/71
[2025-07-10 05:08] VITALS: BMI 19.3
[2025-07-10] MEDS: TYLENOL 650 MG PO ×2 (06:46→20:00)
[2025-07-10 07:10] VITALS: BP 153/79
[2025-07-10 07:22] LABS: Hematocrit 36.2 % (37.0-47.0); Hemoglobin 12.0 g/dL (12.0-16.0); Mean Corp Hgb Conc. 33.1 g/dL (33.0-37.0); Mean Corpuscular Volume 99.7 fL (81.0-99.0); Platelet Count 285 10^3/uL (130-400); Red Cell Dist. Width 12.5 % (11.5-14.5)
[2025-07-10 07:35] LABS: Blood Urea Nitrogen 28 mg/dl (7-17); Calcium 9.7 mg/dl (8.4-10.2); Carbon Dioxide 25 mmol/L (22-30); Chloride 107 mmol/L (98-107); Estimated Creatinine Clearance 37 ml/min; Glucose 151 mg/dl (70-99); Potassium 5.3 mmol/L (3.5-5.1); Sodium 139 mmol/L (135-145); eGFR > 60.00
[2025-07-10] MEDS: TOPROL XL 25 MG PO ×2 (08:52→19:44)
[2025-07-10] MEDS: PEPCID 20 MG PO (08:52)
[2025-07-10] MEDS: DELTASONE 40 MG PO (08:52)
[2025-07-10] MEDS: PROTONIX 40 MG PO (08:52)
[2025-07-10] MEDS: LOKELMA 5 GRAM PO (08:53)
--- NOTE | 2025-07-10 10:14 | CON.ID ---
Consultation
-
Date/Time Consultation Requested: 07/09/25 22:14
Date/Time Consultation Performed: 07/10/24 10:14
Requesting Provider: Dr Cash
Performing Provider: Dr Paulson
Reason for Consultation: LLE Wound
Chief Complaint / Past History
Chief Complaint
LLE Wound
History of Present Illness
Ms Skinner is an 80 year old female with a chronic venous insufficiency wound of the LLE that began april of this year followed by Wound Care. She had a biopsy of the lesion a few weeks ago (05/28/25) and she felt that the pain and size of the wound
increased. She was seen in the ER on 07/06 and prescribed Keflex for suspected cellulitis however she did not improve. She was seen by Wound Care today and referred to the ED for further evaluation. No: fevers, chills, nausea or vomiting. ID is
consulted for assistance with management.
Since arrival here she has been afebrile, bp overall stable, wbc 9.0, hgb 12.8, plt 294, no left shift, K 5.3, cr 0.9, lactic acid 1.0, peripheral vascular US: no DVT, blood cultures x2 in progress, wound culture in progress pending, ID is consulted
for assistance with management.
Past History
Additional Past Medical History:
Chronic Venous Insufficiency
Hypertension
Osteoporosis
Additional Past Surgical History:
RLE EVLT (2023)
Allergy History:
No Known Allergies Allergy (Verified 07/09/25 18:22)
Medications Reviewed: Yes
Social History
Tobacco: Non-Smoker
Alcohol: None
Drug: None
Family History
Family History: Not Pertinent
Review of Systems
Review of Systems
General: Negative Fever or Chills
All systems: All other systems were reviewed and were negative
Vital Signs
Temp Pulse Resp BP Pulse Ox
98.3 F 80 18 153/79 98
07/10/25 07:10 07/10/25 07:10 07/10/25 07:10 07/10/25 07:10 07/10/25 07:10
Physical Exam
Physical Exam
Constitutional: No Acute Distress
Cardiovascular: Regular Rate and S1/S2; Negative Murmur or Rub
Pulmonary: Clear and Symmetric; Negative Wheezes, Rales or Rhonchi
Gastrointestinal: Soft, Non Tender, Non Distended and Normal Bowel Sounds
Skin: Warm and Dry; Negative Rash or Jaundice
Wound: Other (L posterior distal leg - large ovular wound with slough/escahr, mild surrounding redness, notable odor)
Lab / Diagnostic Study Results
07/10/25 06:13
07/10/25 06:13
Abs Immat Gran (auto) 0.1 10^3/uL (0-0.05) H 07/09/25 15:03
Absolute Neuts (auto) 5.1 10^3/uL (1.4-6.5) 07/09/25 15:03
Absolute Lymphs (auto) 3.1 10^3/uL (1.2-3.4) 07/09/25 15:03
Absolute Monos (auto) 0.8 10^3/uL (0.1-0.6) H 07/09/25 15:03
Absolute Basos (auto) 0.0 10^3/uL (0-0.2) 07/09/25 15:03
Immature Gran % 0.7 % (0-0.5) H 07/09/25 15:03
Neutrophils % 56.0 % (42.2-75.2) 07/09/25 15:03
Lymphocytes % 34.3 % (20.5-51.1) 07/09/25 15:03
Monocytes % 8.4 % (1.7-9.3) 07/09/25 15:03
Eosinophils % 0.3 % (0-6) 07/09/25 15:03
Basophils % 0.3 % (0-2) 07/09/25 15:03
ESR Cancelled 07/09/25 21:15
Lactic Acid 1.0 mmol/L (0.7-2.0) 07/09/25 19:12
C-Reactive Protein Cancelled 07/09/25 21:15
Microbiology Results
Micro:
07/09/25 19:12 Wound Culture - Pending
Leg - Left Gram Stain - Pending
07/09/25 19:12 Blood Culture - Pending
Blood/Venous
07/09/25 15:03 Blood Culture - Pending
Blood/Venous
Assessment / Plan
LLE Venous Wound with possible suprainfection
- rapid improvement per patient overnight with resolution of edema, minimal surrounding erythema. There is slough and some eschar.
- wound culture in progress
- blood cultures x2 in progress
- restart vancomycin
- start cefepime
- she will be seen by Dr Sanchez wound care tomorrow
--- NOTE | 2025-07-10 10:38 | PHA.VAN.IN ---
Assessment
- Assessment
Renal Function: Appears similar to baseline (Baseline SCr 0.8-0.9)
Maximum Temperature: 99F
Minimum Temperature: 97.8F
Concomitant Antimicrobials: Cefepime
AUC Dosing Plan
- Dosing Variables
Dosing Weight (kg): 48.6
Dosing CrCl (ml/min): 37
Vd coefficient (L/kg): 0.7
- Empiric Dosing
Initial / Loading Dose: 1250MG
Maintenance Regimen: 500MG Q24H
Estimated AUC (mcg*h/mL): 426
Estimated Peak (mcg*h/mL): 25.8
Estimated Trough (mcg/ml): 11.5
Estimated Half Life (H): 19.7
- Monitoring
No levels ordered at this time: Awaiting steady state
Pharmacokinetics Vancomycin I
- -
Patient Age: 80
Patient Sex: Female
Vancomycin Day #: 1
Indication: Skin And Soft Tissue
Requesting Provider: Lorene
Pertinent Antimicrobial Allergies:
NKDA
Height / Weight:
Height 5 ft 2.5 in
Actual Weight 48.619 kg
Pertinent Past Medical History: Chronic venous insufficiency, LLE wound 04/2025 s/p biopsy, Keflex failure
- Vital Signs / Lab Results
Temp Pulse Resp BP Pulse Ox
98.3 F 80 18 153/79 98
07/10/25 07:10 07/10/25 07:10 07/10/25 07:10 07/10/25 07:10 07/10/25 08:10
Lab Results - Hematology
07/09/25 07/10/25
15:03 06:13
WBC 9.0 6.9
Lab Results - Chemistry
07/09/25 07/10/25
15:03 06:13
BUN 26 H 28 H
Creatinine 1.1 H 0.9
Estimated Creat Clear 37
Albumin 4.5
07/09/25 07/09/25
15:03 19:12
Lactic Acid 0.7 1.0
[2025-07-10 11:05] VITALS: BP 151/87
[2025-07-10] MEDS: VANCOCIN 275 MG IV (11:11)
[2025-07-10] MEDS: STERILE WATER FOR INJECTION 10 ML IV ×2 (11:17→23:33)
[2025-07-10] MEDS: MAXIPIME 2000 MG IV ×2 (11:17→23:33)
--- NOTE | 2025-07-10 11:27 | WOUNDNOTE ---
LEFT POSTERIOR LOWER LEG
--- NOTE | 2025-07-10 11:37 | WOUNDNOTE ---
[facility] RN note: Patient admitted with left lower leg vasculitic ulcer.
See H&P for complete history.
PMH: Osteoporosis, uncontrolled HTN
Wound Location and type/assessment: Patient admitted with vasculitic wound to left lower leg. Patient known to wound care center. Wound is painful, with a 'punched out' appearance. A slight odor is noted. 100% of the ulcer is covered with adherent
slough and eschar. Patient said the wound first started as a skin tear in April. Dr. Sanchez had recently biopsied wound and confirmed vasculitis. Patient has been started on oral steroids since hospital admission. Heels and sacrum intact.
Appetite: Fair
Pressure redistribution devices in place: Patient turns easily in bed and ambulates. She is on a BubbleGab Accumax.
Plan: Patient refusing wound to be cleaned with saline or Dakins. She has agreed to try Vashe for next dressing change. She refused topical Hydrogel for gentle debridement as she reports she finds that it caldwell. Plan is local wound care with
adaptic and dry dressing then continuing to follow up at [facility] after discharge. Will confirm orders with hospitalist and update nurse. Updated care plan and will follow as needed.
Note to case management of equipment requested for discharge:
Recommend follow up at wound care center upon discharge.
--- NOTE | 2025-07-10 11:55 | W.PN.HOSP.TC ---
Addendum entered and electronically signed by Montrell Santos MD 07/10/25 12:23:
Creatinine was elevated on admission. Okay to restart raloxifene
Original Note:
Today's Communication/Plan
-
Follow-up on the wound culture results/blood culture results
Continue with broad-spectrum antibiotics
Monitor blood pressure
Wound care
Assessment / Plan
Assessment / Plan
A/P: Patient is an 80y F with PMH significant for L ankle wound and chronic venous insufficiency who presents to ED for evaluation of worsening L ankle wound.
Leukocytoclastic Vasculitis
Left Ankle Wound with superimposed infection
- Admit for further evaluation and treatment.
- Biopsy results from 05/28 reviewed and shows leukocytoclastic vasculitis.
- PO prednisone for vasculitis and monitor for any clinical changes.
- Wound Care eval for local care recommendations.
- Follow-up on the wound culture. Follow-up on the blood culture results
- Patient was started on broad-spectrum antibiotics with vancomycin and cefepime
- ID is following
Uncontrolled Hypertension
- Patient with likely long history of uncontrolled hypertension couched as 'white coat syndrome'.
- Was given recent Rx from PCP for Toprol which she has yet to begin.
- Has had adverse effects in the past due to amlodipine.
- Start Toprol BID for now and titrate as needed for BP control. Blood pressure improved since admission.
- IV hydralazine for very high BP.
- Adjust regimen as needed during stay for improved control. Will likely require multiple agents.
Osteoporosis
- Hold Evista for now.
Elevated creatinine
-Downtrended. Monitor.
Mild hyperkalemia
-Dose of Lokelma
DVT Prophylaxis: Lovenox
Code Status: Full
Anticipated Discharge: > 48 hours
Subjective/Interval History
-
Date of Service: July 10, 2025
Patient stated of improvement in left lower extremity severe edema and also with improvement in mild erythema
Objective Data
-
Labs:
Laboratory Results
07/10/25
06:13
WBC 6.9
Hgb 12.0
Hct 36.2 L
Plt Count 285
Sodium 139
Potassium 5.3 H
Chloride 107
Carbon Dioxide 25
BUN 28 H
Creatinine 0.9
Glucose 151 H
Calcium 9.7
Vital Signs:
Vital Signs
Temp Pulse Resp BP Pulse Ox
98.2 F 78 18 151/87 96
07/10/25 11:05 07/10/25 11:05 07/10/25 11:05 07/10/25 11:05 07/10/25 11:05
I&O
07/09/25 07/10/25 07/11/25
06:59 06:59 06:59
Intake Total 0 / 0
Balance 0 / 0
Physical Exam
-
General: Well Developed, No Apparent Distress and Conversant
HEENT: Normocephalic, Atraumatic and Moist Mucous Membranes
Respiratory: Clear to Auscultation
Cardiac: Regular Rhythm and S1/S2; Negative Murmur, Rub or Gallop
GI: Soft, Nontender, Nondistended and Normal Bowel Sounds; Negative Organomegaly
Rectal: Deferred by Provider
Musculoskeletal: No Clubbing, No Cyanosis and No Edema
Skin: Other (Wound posterior aspect of the L ankle / lower leg extending to medial and lateral aspects with slough/eschar. notable odor. No purulent drainage); Negative Rash
Neuro: Awake, AO x 3 and Nonfocal/Grossly Intact
Psych: Calm
Data Reviewed
-
Total Time Spent with Patient (in minutes): 55
--- NOTE | 2025-07-10 12:09 | CM ---
Alert awake patient who lives with Tad in a 2 story home with 1 step to enter and 12 steps to bed/bathroom.She is independent in driving and all ADLs. She uses no adaptive device.She also has a supportive dgt Lashae and son Polo. Offered VN
she declined need.
No VN/SNF hx.
Pharmacy [facility]
PCP Dr Grimes
PLAN Home no needs
[2025-07-10] MEDS: EVISTA 60 MG PO (12:51)
[2025-07-10 15:10] VITALS: BP 147/70
[2025-07-10] MEDS: LOVENOX 40 MG SC (17:15)
[2025-07-10 19:27] VITALS: BP 154/71
[2025-07-10 23:21] VITALS: BP 140/74
[2025-07-10] MEDS: FLUSH (NSS) 2 FLUSH IV (23:32)
[2025-07-11 03:53] VITALS: BP 166/86
[2025-07-11] MEDS: ROXICODONE 5 MG PO ×4 (04:08→20:55)
[2025-07-11] MEDS: VANCOCIN HCL 500 MG 100 IV (05:31)
[2025-07-11] MEDS: FLUSH (NSS) 2 FLUSH IV ×2 (05:32→23:30)
[2025-07-11 06:00] VITALS: BMI 19.5
[2025-07-11] MEDS: TYLENOL 650 MG PO ×3 (06:44→20:55)
[2025-07-11 07:50] VITALS: BP 175/90
[2025-07-11 08:11] LABS: Blood Urea Nitrogen 30 mg/dl (7-17); Calcium 9.6 mg/dl (8.4-10.2); Carbon Dioxide 27 mmol/L (22-30); Chloride 108 mmol/L (98-107); Estimated Creatinine Clearance 34 ml/min; Glucose 104 mg/dl (70-99); Potassium 4.6 mmol/L (3.5-5.1); Sodium 139 mmol/L (135-145); eGFR 56.25
[2025-07-11 08:18] LABS: Hematocrit 34.8 % (37.0-47.0); Hemoglobin 11.3 g/dL (12.0-16.0); Mean Corp Hgb Conc. 32.5 g/dL (33.0-37.0); Mean Corpuscular Volume 102.7 fL (81.0-99.0); Nucleated Red Blood Cells % 0 %; Platelet Count 268 10^3/uL (130-400); Red Cell Dist. Width 12.7 % (11.5-14.5)
[2025-07-11] MEDS: PEPCID 20 MG PO (08:18)
[2025-07-11] MEDS: DELTASONE 40 MG PO (08:19)
[2025-07-11] MEDS: TOPROL XL 25 MG PO ×2 (08:19→20:54)
[2025-07-11] MEDS: EVISTA 60 MG PO (08:19)
[2025-07-11] MEDS: PROTONIX 40 MG PO (08:19)
--- NOTE | 2025-07-11 08:24 | PHA.VAN.FU ---
Vancomycin Assessment / Plan
- Assessment
Renal Function: Stable
WBC's are: Trending Up (11.9 from 6.9, on prednisone)
In the past 24 hrs, patient has been: Afebrile
Concomitant Antimicrobials: Cefepime
- Dosing Plan
Continue: 500MG Q24H
- Monitoring Plan
No level(s) ordered at this time: Awaiting steady state
- Follow Up
Pharmacy will continue to follow.
Vancomycin Follow UP
- -
Patient Age: 80
Patient Sex: Female
Vancomycin Day #: 2
Indication: Skin And Soft Tissue
Requesting Provider: Lorene
Pertinent Antimicrobial Allergies:
NKDA
Height / Weight:
Height 5 ft 2.5 in
Actual Weight 49.186 kg
Pertinent Past Medical History: Chronic venous insufficiency, LLE wound 04/2025 s/p biopsy, Keflex failure
- Vital Signs / Lab Results
Temp Pulse Resp BP Pulse Ox
97.6 F 66 18 175/90 96
07/11/25 07:50 07/11/25 07:50 07/11/25 07:50 07/11/25 07:50 07/11/25 07:50
Lab Results - Hematology
07/09/25 07/10/25 07/11/25
15:03 06:13 06:35
WBC 9.0 6.9 11.9 H
Lab Results - Chemistry
07/09/25 07/10/25 07/11/25
15:03 06:13 06:35
BUN 26 H 28 H 30 H
Creatinine 1.1 H 0.9 1.0
Estimated Creat Clear 37 34
Albumin 4.5
07/09/25 07/09/25
15:03 19:12
Lactic Acid 0.7 1.0
Microbiology Results
07/09/25 19:12 Blood Culture - Preliminary
Blood/Venous No Growth in 24 hours- Final report to follow
07/09/25 15:03 Blood Culture - Preliminary
Blood/Venous No Growth in 24 hours- Final report to follow
07/09/25 19:12 Wound Culture - Preliminary
Leg - Left Gram Stain - Preliminary
--- NOTE | 2025-07-11 08:40 | W.PN.ID1 ---
Date of Service
Date of Service: July 11, 2025
Today's Communication
start levofloxacin
stop vancomycin/cefepime
steroids per primary team/wound care
Assessment / Plan
LLE Venous Wound with possible suprainfection
Vasculitis
- wound culture in progress - polymicrobial as expected
- blood cultures x2 in progress no growth to date
- start levofloxacin 500 mg PO Qday; stop vancomycin/cefepime
- steroids per primary team
- she will be seen by Dr Sanchez wound care today
Chief Complaint
-: Other (wound infection, cellulitis)
Subjective / Review of Systems
afebrile
bp stable
wound culture polymicrobial as expected
Vital Signs / Physical Exam
Vital Signs
Vital Signs
Temp Pulse Resp BP Pulse Ox
97.6 F 66 18 175/90 96
07/11/25 07:50 07/11/25 07:50 07/11/25 07:50 07/11/25 07:50 07/11/25 07:50
Physical Exam
Constitutional: No Acute Distress
Cardiovascular: Regular Rate and S1/S2; Negative Murmur or Rub
Pulmonary: Clear and Symmetric; Negative Wheezes or Rales
Gastrointestinal: Soft, Non Tender, Non Distended and Normal Bowel Sounds
Skin: Warm and Dry; Negative Rash or Jaundice
Wound: Other (with slough, odor, no visible granulation tissue, no visible SQ structures)
Objective Data
Lab Data
Lab Results
07/11/25 06:35
07/11/25 06:35
ESR Cancelled 07/09/25 21:15
Estimated Creat Clear 34 ml/min 07/11/25 06:35
Lactic Acid 1.0 mmol/L (0.7-2.0) 07/09/25 19:12
Total Bilirubin 0.3 mg/dl (0.2-1.3) 07/09/25 15:03
AST 26 U/L (14-36) 07/09/25 15:03
ALT 19 U/L (0-35) 07/09/25 15:03
Alkaline Phosphatase 67 U/L (38-126) 07/09/25 15:03
C-Reactive Protein Cancelled 07/09/25 21:15
Most recent labs reviewed.
Micro Results:
07/09/25 19:12 Blood Culture - Preliminary
Blood/Venous No Growth in 24 hours- Final report to follow
07/09/25 15:03 Blood Culture - Preliminary
Blood/Venous No Growth in 24 hours- Final report to follow
07/09/25 19:12 Wound Culture - Preliminary
Leg - Left Gram Stain - Preliminary
--- NOTE | 2025-07-11 09:44 | CM ---
Currently on IV antibiotics.
Prior to admission independent lives with .
Wound care
PLAN Home no anticipated needs
[2025-07-11] MEDS: LEVAQUIN 500 MG PO (10:25)
[2025-07-11 11:25] VITALS: BP 188/88
[2025-07-11] MEDS: APRESOLINE 5 MG IV ×2 (11:36→23:31)
[2025-07-11 11:37] VITALS: BP 175/87
--- NOTE | 2025-07-11 12:14 | CON.WC ---
Assessment / Plan
- -
Patient known to me from wound care center. Was seen Wednesday, July 09, 2025 at which time advised surgery report to the emergency room as the wound over the left lateral posterior lower leg and ankle is progressively getting worse. We are
working with a diagnosis of vasculitis. She was seen by infectious disease upon admission. Found to have grown out polymicrobial cultures and started on Levaquin. Given steroids systemically for vasculitis. The wound is moderately necrotic with
exposed Achilles tendon. Vascular surgery initially consulted but then DC'd as we were working with a diagnosis of vasculitis. Patient does have good pulses. Would recommend reconsidering vascular consultation for possible debridement from a limb
salvage point of view. Agree with address staining of Adaptic and bordered foam. Will discuss with ID and vascular surgery.
Medical History
- Chief Complaint
Consultation Date/Time: 07/11/2025 1215
Chief Complaint: Other (Vasculitis ulcer Left lower leg)
- Past Medical History
Past Medical History: Venous Hypertension
- Social History
Tobacco: Non-smoker
Alcohol: None
Drug: None
Living: With Family
Employment: Retired
- Family History
Family History: Not Pertinent
Objective Data
- -
Allergies/Home Meds/Vitals/Lab Results:
Allergies
Allergy/AdvReac Type Severity Reaction Status Date / Time
No Known Allergies Allergy Verified 07/09/25 18:22
Vital Signs
Temp Pulse Resp BP Pulse Ox
07/11/25 11:37 98 F 72 18 175/87 98
07/11/25 11:25 74 188/88
07/11/25 07:50 97.6 F 66 18 175/90 96
07/11/25 03:53 98.2 F 71 16 166/86 96
07/10/25 23:21 98.3 F 75 18 140/74 96
07/10/25 19:27 98.6 F 82 18 154/71 94
07/10/25 15:10 98.4 F 77 18 147/70 96
Lab Results
07/11/25 06:35
07/11/25 06:35
Microbiology Results
07/09/25 19:12 Leg - Left Wound Culture - Preliminary
Proteus species
Pseudomonas species
Escherichia coli
Group F Streptococcus
07/09/25 19:12 Leg - Left Gram Stain - Preliminary
07/09/25 19:12 Blood/Venous Blood Culture - Preliminary
No Growth in 24 hours- Final report to follow
07/09/25 15:03 Blood/Venous Blood Culture - Preliminary
No Growth in 24 hours- Final report to follow
Generic Name Dose Route Start Last Admin
Trade Name Freq PRN Reason Stop Dose Admin
Acetaminophen 650 mg 07/09/25 21:15 07/11/25 11:06
Acetaminophen 325 Mg Tablet PO 08/06/25 21:14 650 mg
Q4HPRN PRN Administration
Mild Pain / Temp > 101
Enoxaparin Sodium 40 mg 07/10/25 18:00 07/10/25 17:15
Enoxaparin Sodium 40 Mg/0.4 Ml Syringe SC 08/07/25 17:59 40 mg
QPM LENORE Administration
Famotidine 20 mg 07/10/25 09:00 07/11/25 08:18
Famotidine 20 Mg Tablet PO 08/07/25 08:59 20 mg
DAILY LENORE Administration
Hydralazine HCl 5 mg 07/09/25 21:15 07/11/25 11:36
Hydralazine 20 Mg/Ml Vial IV 08/06/25 21:14 5 mg
Q6HPRN PRN Administration
SBP > 180 or DBP > 110
Levofloxacin 500 mg 07/11/25 10:00 07/11/25 10:25
Levofloxacin 500 Mg Tablet PO 500 mg
DAILY LENORE Administration
Metoprolol Succinate 25 mg 07/09/25 21:15 07/11/25 08:19
Metoprolol 25 Mg Extended Release Tablet PO 08/06/25 21:14 25 mg
BID LENORE Administration
Oxycodone HCl 5 mg 07/09/25 23:17 07/11/25 11:06
Oxycodone 5 Mg Regular Release Tablet PO 07/23/25 23:16 5 mg
Q4HPRN PRN Administration
moderate to severe pain
Pantoprazole Sodium 40 mg 07/10/25 08:00 07/11/25 08:19
Pantoprazole 40 Mg Delayed Release Tablet PO 08/07/25 07:59 40 mg
DAILY LENORE Administration
Prednisone 40 mg 07/10/25 08:00 07/11/25 08:19
Prednisone 20 Mg Tablet PO 08/07/25 07:59 40 mg
DAILY LENORE Administration
Raloxifene HCl 60 mg 07/10/25 13:00 07/11/25 08:19
Raloxifene 60 Mg Tablet PO 08/07/25 12:59 60 mg
DAILY LENORE Administration
Sodium Chloride 0 flush 07/09/25 22:00 07/11/25 05:32
Sodium Chloride 0.9% (Flush) Syringe IV 08/06/25 21:59 2 flush
PER PROTOCOL LENORE Administration
Review of Systems
- -
History Source: Patient
Constitutional: No Symptoms
Respiratory: No Symptoms
Cardiac: No Symptoms
Abdomen / GI: No Symptoms
: No Symptoms
Musculoskeletal: No Symptoms
Skin: No Symptoms
Neurological: No Symptoms
Endocrine: No Symptoms
Hematologic/Lymphatic: No Symptoms
Physical Exam
- -
General: Well Developed, Well Nourished, No Apparent Distress
Respiratory: Non Labored Respirations
Musculoskeletal: Other (Left lateral posterior lower extremity wound with mild odor and decreased viability with exposed tendon. Purulent material in the subcutaneous space.)
- Physical Findings / Procedures
Left Lower Inferior Lateral Lower Leg
Wound Type: Other (vasculitis)
--- NOTE | 2025-07-11 12:17 | W.PN.HOSP.TC ---
Today's Communication/Plan
-
Await evaluation by wound care team
Now transition to Levaquin
Monitor blood pressure.
Assessment / Plan
Assessment / Plan
A/P: Patient is an 80y F with PMH significant for L ankle wound and chronic venous insufficiency who presents to ED for evaluation of worsening L ankle wound.
Leukocytoclastic Vasculitis
Left Ankle Wound with superimposed infection
- Biopsy results from 05/28 reviewed and shows leukocytoclastic vasculitis.
- PO prednisone for vasculitis and monitor for any clinical changes. Recommended outpatient rheumatology follow-up
- Wound Care eval for local care recommendations.
- Follow-up on the wound culture with polymicrobial growth. Blood cultures remain negative.
- Patient was started on broad-spectrum antibiotics with vancomycin and cefepime and now transition to p.o. Levaquin
- Discussed with infectious disease. Await evaluation by Dr. Sanchez.
Uncontrolled Hypertension
- Has had adverse effects in the past due to amlodipine.
- Start Toprol BID for now and titrate as needed for BP control. Blood pressure could also be elevated in the setting of leg pain.
- IV hydralazine for very high BP.
- Adjust regimen as needed during stay for improved control.
Osteoporosis
- Continue with home meds
Elevated creatinine
-Downtrended. Monitor.
Mild hyperkalemia
- Resolved.
DVT Prophylaxis: Lovenox
Code Status: Full
Discussed with ID
Anticipated Discharge: Within 24 hours
Subjective/Interval History
-
Date of Service: July 11, 2025
States of left leg chronic pain. States of burning sensation.
States she is getting used to using a walker.
Objective Data
-
Labs:
Laboratory Results
07/11/25
06:35
WBC 11.9 H
Hgb 11.3 L
Hct 34.8 L
Plt Count 268
Sodium 139
Potassium 4.6
Chloride 108 H
Carbon Dioxide 27
BUN 30 H
Creatinine 1.0
Glucose 104 H
Calcium 9.6
Vital Signs:
Vital Signs
Temp Pulse Resp BP Pulse Ox
98 F 72 18 175/87 98
07/11/25 11:37 07/11/25 11:37 07/11/25 11:37 07/11/25 11:37 07/11/25 11:37
I&O
07/10/25 07/11/25 07/12/25
06:59 06:59 06:59
Intake Total 0 / 0 740 / 740
Balance 0 / 0 740 / 740
Physical Exam
-
General: Well Developed, No Apparent Distress and Conversant
HEENT: Normocephalic, Atraumatic and Moist Mucous Membranes
Respiratory: Clear to Auscultation
Cardiac: Regular Rhythm and S1/S2; Negative Murmur, Rub or Gallop
GI: Soft, Nontender, Nondistended and Normal Bowel Sounds; Negative Organomegaly
Rectal: Deferred by Provider
Musculoskeletal: No Clubbing, No Cyanosis and No Edema
Skin: Other (Wound posterior aspect of the L ankle / lower leg extending to medial and lateral aspects with slough/eschar. notable odor. ); Negative Rash
Neuro: Awake, AO x 3 and Nonfocal/Grossly Intact
Psych: Calm
Data Reviewed
-
Total Time Spent with Patient (in minutes): 55
--- NOTE | 2025-07-11 12:25 | WOUNDNOTE ---
L CALF (POSTERIOR LATERAL)
--- NOTE | 2025-07-11 12:26 | WOUNDNOTE ---
[facility] RN note: Patient seen with Dr. Sanchez. LLE wound 90% necrotic yellow/black slough and 10% pink tissue with surrounding mild erythema. LLE edema less patient stated. RN Art premedicated patient for pain prior to wound care. Patient
tolerated wound care fairly well. +Pedal pulses. Sacral skin blanchable mild red and intact. L heel blanchable red. Protective foam applied to L heel. Air chair cushion placed under heels. Appetite good. Dr. Sanchez stated he plans to discuss case
with ID and vascular. Patient to follow up with [facility] when discharged.
[2025-07-11 12:42] VITALS: BP 151/84
--- NOTE | 2025-07-11 14:15 | CON.VAS ---
Consultation
Consultation Request
Date/Time Consultation Performed: 07/11/2025 at 3 PM
Performing Provider: Rodger
Reason for Consultation: Nonhealing lower extremity wound
Medical History
-
Chief Complaint: Nonhealing left lower extremity wound
History of Present Illness:
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
redness and pain at her chronic wound site. Patient had seen her refractory specialist that day who referred her to the emergency room for further evaluation. Patient is being treated with IV antibiotics. Vascular surgery consult today for wound
debridement. Patient denies claudication symptoms. Arterial ultrasound from July 2024 normal.
Patient seen at bedside this afternoon. Palpable pulses distally. See wound care notes for images.
Past Medical History
Past Medical History: HTN and Other (Vasculitis, osteoporosis)
Past Surgical History: None
Social History
Tobacco: Non-Smoker
Family History
Family History: Reviewed & Not Pertinent
Allergies / Home Medications
Allergy/AdvReac Type Severity Reaction Status Date / Time
No Known Allergies Allergy Verified 07/09/25 18:22
�Medication �Instructions �Recorded �Confirmed �Type
acetaminophen 325 mg tablet 650 mg PO QID PRN pain 07/09/25 07/09/25 History
(Tylenol)
cephalexin 500 mg capsule 500 mg PO BID Infection 07/09/25 07/09/25 History
clobetasol 0.05 % topical cream 1 applic topical BID 07/09/25 07/09/25 History
Anti-Inflammatory
diclofenac sodium 50 mg 50 mg PO Q12H PRN pain 07/09/25 07/09/25 History
tablet,delayed release
famotidine 20 mg tablet 20 mg PO BID Gastrointestinal Issue 07/09/25 07/09/25 History
metoprolol succinate 25 mg 12.5 mg PO DAILY Blood Pressure 07/09/25 07/09/25 History
tablet,extended release 24 hr
raloxifene 60 mg tablet 60 mg PO DAILY Cancer 07/09/25 07/09/25 History
Review of Systems
-
History Source: Patient
All other systems: Negative unless noted
Constitutional: Reports No Symptoms
EENT: Reports No Symptoms
Respiratory: Reports No Symptoms
Cardiac: Reports No Symptoms
Vascular: Denies Leg Pain / Claudication
Abdomen/GI: Reports No Symptoms
: Reports No Symptoms
Musculoskeletal: Reports Edema
Skin: Reports Other (Nonhealing left lower extremity wound)
Neurological: Reports No Symptoms
Physical Exam
Vital Signs
Temp Pulse Resp BP Pulse Ox
98 F 89 18 151/84 98
07/11/25 11:37 07/11/25 12:42 07/11/25 11:37 07/11/25 12:42 07/11/25 11:37
Lab Results
07/11/25 06:35
07/11/25 06:35
Physical Exam
General: No Apparent Distress
HEENT: Normocephalic and Atraumatic
Respiratory: Non Labored Respirations
Cardiac: Negative JVD
GI: Soft
Musculoskeletal: No Clubbing, No Cyanosis and Edema
Skin: Other (See wound care notes for images)
Neuro: Awake, Alert and Oriented
Psych: Calm
Pulses: Left Dorsalis Pedis: +2 and Left Posterior Tibial: +2
Assessment / Plan
-
80-year-old female with Leukoclastic vasculitis, nonhealing left lower extremity wound
Plan:
NPO after midnight for possible debridement tomorrow with Dr Soares
Data Reviewed
-
Labs: Labs Reviewed by me
[2025-07-11 15:42] VITALS: BP 163/90
[2025-07-11] MEDS: LOVENOX 40 MG SC (18:35)
[2025-07-12] VITALS (10 sets, daily range): BP systolic 12–190; BP diastolic 69–98; PULSE 80; O2SAT 93; BMI 18.6
[2025-07-12] MEDS: ROXICODONE 5 MG PO ×4 (00:55→21:19)
[2025-07-12] MEDS: TYLENOL 650 MG PO ×4 (00:55→21:18)
[2025-07-12 06:45] LABS: Hematocrit 40.5 % (37.0-47.0); Hemoglobin 13.4 g/dL (12.0-16.0); Mean Corp Hgb Conc. 33.1 g/dL (33.0-37.0); Mean Corpuscular Volume 100.0 fL (81.0-99.0); Nucleated Red Blood Cells % 0 %; Platelet Count 347 10^3/uL (130-400); Red Cell Dist. Width 12.6 % (11.5-14.5)
[2025-07-12] MEDS: TOPROL XL 25 MG PO ×2 (07:58→21:01)
[2025-07-12] MEDS: LEVAQUIN 500 MG PO (07:58)
[2025-07-12] MEDS: DELTASONE 40 MG PO (07:58)
[2025-07-12] MEDS: PROTONIX 40 MG PO (07:58)
[2025-07-12] MEDS: PEPCID 20 MG PO (07:59)
[2025-07-12] MEDS: EVISTA 60 MG PO (07:59)
--- NOTE | 2025-07-12 09:12 | W.PN.ID1 ---
Date of Service
Date of Service: July 12, 2025
Today's Communication
- for debridement today
- c/w levofloxacin 500 mg PO Qday, add keflex 500 mg PO QID - would continue antibiotics x3 days post operatively
Assessment / Plan
LLE Venous Wound with possible suprainfection
Vasculitis
- wound culture in progress - polymicrobial as expected
- blood cultures x2 in progress no growth to date
- for debridement today
- c/w levofloxacin 500 mg PO Qday, add keflex 500 mg PO QID - would continue antibiotics x3 days post operatively
- steroids per primary team
Chief Complaint
-: Other (wound infection, cellulitis)
Subjective / Review of Systems
afebrile
bp stable
for debridement today with Dr Soares
vomited up her pills this AM - attributes it to being on an empyt stomach
Vital Signs / Physical Exam
Vital Signs
Vital Signs
Temp Pulse Resp BP Pulse Ox
98 F 76 16 167/84 96
07/12/25 07:00 07/12/25 07:00 07/12/25 07:00 07/12/25 07:00 07/12/25 07:00
Physical Exam
Constitutional: No Acute Distress
Cardiovascular: Regular Rate and S1/S2; Negative Murmur or Rub
Pulmonary: Clear and Symmetric; Negative Wheezes or Rales
Gastrointestinal: Soft, Non Tender, Non Distended and Normal Bowel Sounds
Skin: Warm and Dry; Negative Rash or Jaundice
Objective Data
Lab Data
Lab Results
07/12/25 06:17
ESR Cancelled 07/09/25 21:15
Estimated Creat Clear Cancelled 07/12/25 06:17
Lactic Acid 1.0 mmol/L (0.7-2.0) 07/09/25 19:12
Total Bilirubin 0.3 mg/dl (0.2-1.3) 07/09/25 15:03
AST 26 U/L (14-36) 07/09/25 15:03
ALT 19 U/L (0-35) 07/09/25 15:03
Alkaline Phosphatase 67 U/L (38-126) 07/09/25 15:03
C-Reactive Protein Cancelled 07/09/25 21:15
Most recent labs reviewed.
Micro Results:
07/09/25 19:12 Blood Culture - Preliminary
Blood/Venous No Growth in 48 hours- Final report to follow
07/09/25 15:03 Blood Culture - Preliminary
Blood/Venous No Growth in 48 hours- Final report to follow
07/09/25 19:12 Wound Culture - Preliminary
Leg - Left Proteus species
Pseudomonas species
Escherichia coli
Group F Streptococcus
Gram Stain - Preliminary
[2025-07-12 09:14] LABS: Blood Urea Nitrogen 29 mg/dl (7-17); Calcium 9.8 mg/dl (8.4-10.2); Carbon Dioxide 24 mmol/L (22-30); Chloride 106 mmol/L (98-107); Estimated Creatinine Clearance 36 ml/min; Glucose 92 mg/dl (70-99); Potassium 4.2 mmol/L (3.5-5.1); Sodium 138 mmol/L (135-145); eGFR > 60.00
--- NOTE | 2025-07-12 11:55 | W.SUR.PREOP ---
Pre-Operative Surgical Note
-
I have examined this patient prior to the performance of the scheduled procedure.
The patient's condition is unchanged from the time of the current History and
Physical and the patient is able to undergo the scheduled procedure.
--- NOTE | 2025-07-12 12:51 | W.IMMPOSTOP ---
Surgical Immed Post Op Note
-
Primary Surgeon: Jared Soares III, MD
Assisting Surgeon: Abrahan Bhardwaj MD PGY2
Pre-op Diagnosis: Non-healing LLE wound
Post-op Diagnosis: Non-healing LLE wound
Procedure Performed: Wound debridement, wound vac placement
Anesthesia Type: Local/sedation
Specimen / Cultures: None
Estimated Blood Loss: 5 cc
Complications: None
Operative Findings: Debridement of 7x6 cm in LLE calf wound, wound vac placement
[2025-07-12] MEDS: DILAUDID 0.25 MG IV ×2 (13:12→13:21)
--- NOTE | 2025-07-12 13:21 | WOUNDNOTE ---
[facility] RN note: Faxed [facility] nursing home vac paperwork requesting Medium Peel and Place dressing kits be delivered to patient's home. [employer] home vac equipment in this sba underwriter's office and can bring up to patient when approved. Taiwo Blakely
Tor requesting VN be set up for vac dressing changes. [place], Vascular PA stated adaptic and black foam can be used and change Mon-Wed-Fri's until patient has weekly peel and place vac dressing delivered to her home. Patient to follow up with
Dr. Sanchez when discharged.
--- NOTE | 2025-07-12 13:23 | PN.CDI ---
CDI
- -
CDI:
Physician Documentation Request
Admit Date: 07/09/25 20:20
Dear Doctor Tom,
Please review the following and provide your response in the progress notes.
Clinical Indicators:
ID, PN, 07/12
#LLE Venous Wound with possible suprainfection
#...Vasculitis
#...- wound culture in progress - polymicrobial as expected
yasmany Soares, 07/11
#Chief Complaint: Nonhealing left lower extremity wound
#...past medical history significant for chronic venous insufficiency,
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
#Vascular surgery consult today for wound debridement.
PN, 07/11
#Leukocytoclastic Vasculitis
#Left Ankle Wound with superimposed infection
Based on the above and your clinical assessment, please clarify the relationship between these conditions:
Yes, Left Lower Extremity Wound is related to/associated with/due to Chronic Venous Insufficiency.
No, Left Lower Extremity Wound is not related to/associated with/due to Chronic Venous Insufficiency but it is due to ___. (Please specify)
Other (please specify)
Use of terms such as suspected, likely, concern for, or probable (associated with a specific diagnosis that is being evaluated, monitored, or treated as if it exists) are acceptable and can be coded in the inpatient setting, when documented at the
time of discharge.
Thank you,
Dominga Woodard RN BSN CCDS
CDI Specialist
Please contact via tiger text
Please use your independent medical judgment in providing your response.
[2025-07-12] MEDS: KEFLEX 500 MG PO ×3 (13:24→21:01)
--- NOTE | 2025-07-12 13:24 | W.PN.HOSP.TC ---
Today's Communication/Plan
-
Continue with Levaquin and Keflex
Monitor blood pressure postop
Arterial Doppler pending
Will require wound VAC set up
PT evaluation.
Assessment / Plan
Assessment / Plan
A/P: Patient is an 80y F with PMH significant for L ankle wound and chronic venous insufficiency who presents to ED for evaluation of worsening L ankle wound.
Leukocytoclastic Vasculitis
Left Ankle Wound with superimposed infection
- Biopsy results from 05/28 reviewed and shows leukocytoclastic vasculitis.
- PO prednisone for vasculitis and monitor for any clinical changes. Recommended outpatient rheumatology follow-up
- Follow-up on the wound culture with polymicrobial growth. Blood cultures remain negative.
- Patient was started on broad-spectrum antibiotics with vancomycin and cefepime and now transition to p.o. Levaquin. Keflex also added.
- Patient underwent wound debridement by vascular surgery. Arterial Doppler added.
- Per vascular surgery patient will require wound VAC upon discharge. Wound care following and wound care instructions added. Case management informed about wound VAC requirement
Uncontrolled Hypertension
- Has had adverse effects in the past due to amlodipine.
- Start Toprol BID for now and titrate as needed for BP control. Blood pressure could also be elevated in the setting of leg pain.
- IV hydralazine for very high BP.
- Adjust regimen as needed during stay for improved control. Probably will need to be added for additional regimen. If patient not on diclofenac can consider starting patient on losartan or ARB. Otherwise may need to consider p.o. hydralazine.
Osteoporosis
- Continue with home meds
Elevated creatinine
-Downtrended. Monitor.
Mild hyperkalemia
- Resolved.
DVT Prophylaxis: Lovenox
Code Status: Full
Discussed with vascular surgery
Anticipated Discharge: Within 24 hours
Subjective/Interval History
-
Date of Service: July 12, 2025
States of stiffness in the left side
Little bit anxious about surgery today
Objective Data
-
Labs:
Laboratory Results
07/12/25 07/12/25
06:17 08:11
WBC 12.3 H
Hgb 13.4
Hct 40.5
Plt Count 347 D
Sodium Cancelled 138
Potassium Cancelled 4.2
Chloride Cancelled 106
Carbon Dioxide Cancelled 24
BUN Cancelled 29 H
Creatinine Cancelled 0.9
Glucose Cancelled 92
Calcium Cancelled 9.8
Vital Signs:
Vital Signs
Temp Pulse Resp BP Pulse Ox
98.0 F 86 14 179/98 96
07/12/25 13:00 07/12/25 13:15 07/12/25 13:15 07/12/25 13:15 07/12/25 13:15
I&O
07/11/25 07/12/25 07/13/25
06:59 06:59 06:59
Intake Total 740 / 740 240 / 240 0 / 0
Balance 740 / 740 240 / 240 0 / 0
Physical Exam
-
General: Well Developed, No Apparent Distress and Conversant
HEENT: Normocephalic, Atraumatic and Moist Mucous Membranes
Respiratory: Clear to Auscultation
Cardiac: Regular Rhythm and S1/S2; Negative Murmur, Rub or Gallop
GI: Soft, Nontender, Nondistended and Normal Bowel Sounds; Negative Organomegaly
Rectal: Deferred by Provider
Musculoskeletal: No Clubbing, No Cyanosis and No Edema
Skin: Other (Wound posterior aspect of the L ankle / lower leg extending to medial and lateral aspects with slough/eschar. notable odor. ); Negative Rash
Neuro: Awake, AO x 3 and Nonfocal/Grossly Intact
Psych: Calm
Data Reviewed
-
Total Time Spent with Patient (in minutes): 55
--- NOTE | 2025-07-12 13:36 | CM ---
Pt to OR today for L leg debridement.
Received message from wound care nurse Blair Bautista Pt will be discharged this weekend on wound vac.
Spoke with family in room. They agreed with [facility] . Codi Lobo liaison notified of referral for VN with wound vac.
Pt will need to be seen by PT postop as per MD.
PLAN Home with [facility] and wound vac
--- NOTE | 2025-07-12 13:37 | VNURNOTE ---
Chart reviewed. Noted that pt currently off floor. Reached out to patient's spouse Tad. Attempted to explain [facility] services: short-term, intermittent, skilled services. Spouse not interested in speaking with liaison, requested I speak with
pt.
Noted [facility] RN's recs & wound vac instructions.
Referral placed in [facility].
--- NOTE | 2025-07-12 13:55 | OR.RPT ---
Operative Report
Operative Report
Date of Operation: 07/12/2025
Pre Op Diagnosis:
1. Nonhealing left distal calf wound
2. Vasculitis
Post Op Diagnosis:
1. Nonhealing left distal calf wound
2. Vasculitis
Procedure:
1. Sharp excisional debridement of left distal calf wound including skin, subcutaneous tissue, muscle and fascia (wound dimensions 8 cm x 6 cm = 48 cm�)
2. Placement of VAC dressing to left distal calf wound following debridement
Surgeon: Jared Soares III, MD
Anesthesia: Sedation/local
Complications: None
Estimated Blood Loss: Less than 5 cc
History and Indications for Procedure: 80-year-old female with recent wound biopsy diagnosis of vasculitis. She has a nonhealing left distal calf wound and we were asked to perform sharp excisional debridement by the wound care team. She has
palpable pedal pulses on physical exam.
Procedure in Detail: Ruth Skinner was correctly identified and placed supine on the operating table. After adequate induction of anesthesia the left leg was positioned, prepped and draped in the usual sterile fashion. Preoperative antibiotics
were administered. A timeout procedure was performed with the nursing and anesthesia staff confirming the patient's identity as well as the nature and laterality of the procedure.
Using a scalpel, scissors and forceps, sharp excisional debridement was performed on the left distal calf wound. Superficial fibrinous exudate was sharply debrided from the wound. Skin, subcutaneous tissue along with muscle and fascia were then
also sharply debrided. The small saphenous vein was identified at the base of the wound and was thrombosed. This was ligated proximally and distally with silk ties and resected. Achilles tendon was evident at the base of the wound. Exposed
muscle was pink and healthy in appearance. Debridement of the necrotic tissue continued to more healthy bleeding tissue throughout the wound. The wound dimensions debrided were 8 cm x 6 cm.
The wound was then irrigated with saline. Hemostasis was achieved in the wound bed. Nonadherent gauze was placed over the wound bed followed by the black VAC sponge which was cut to the appropriate size. Adhesive dressings were applied. The VAC
dressing was then connected to the negative pressure unit. A good seal was achieved.
The patient tolerated the procedure well and was taken to the PACU in stable condition
Attestation: I was present and responsible for the entire procedure
Signed:
Jared Soares III, MD
Vascular Surgery
[facility]
[2025-07-12] MEDS: APRESOLINE 5 MG IV (14:00)
--- NOTE | 2025-07-12 14:10 | WOUNDNOTE ---
WOC RN note: Faxed OR report to Natty Crowder from [employer].
--- NOTE | 2025-07-12 15:24 | WOUNDNOTE ---
WOC RN note: Natty from [facility] confirmed patient's home vac was approved. Will plan to bring up home vac and switch pump in patient's room if discharged today.
--- NOTE | 2025-07-12 16:01 | WOUNDNOTE ---
WO RN note: Spoke with PT Jamaal who stated patient cannot place weight on her LLE. [place] texted Dr. Santos, CM Zora Lentz, VN susan Nunn and [place]y [place], Vascular [facility] 'Ruth Stevenson home vac was approved however, PT Jamaal is saying she
can�t put weight on her L leg. Her appears frail and will not be able to help her much at home. Perhaps a SNF rehab stay? Or see how she does over the weekend?' Dr. Santos to order OT evaluation.
--- NOTE | 2025-07-12 16:04 | PTCARENOTE ---
Patient came back from left ankle debridement around 1400 this afternoon with wound vac on, c//d/i.
WOCN and PT have seen patient, she may need rehab going forward. She was unable to stand on side of bed with wound vac for PT. Patient went down for ultrasound of LE's as well this afternoon.
[2025-07-12] MEDS: LOVENOX 40 MG SC (17:26)
[2025-07-13] MEDS: ROXICODONE 5 MG PO ×4 (03:14→19:27)
[2025-07-13] MEDS: TYLENOL 650 MG PO ×4 (03:14→19:28)
[2025-07-13 06:00] VITALS: BMI 19.7
[2025-07-13 07:18] VITALS: BP 184/89
[2025-07-13] MEDS: PROTONIX 40 MG PO (08:09)
[2025-07-13] MEDS: KEFLEX 500 MG PO ×4 (08:10→21:17)
[2025-07-13] MEDS: PEPCID 20 MG PO (08:10)
[2025-07-13] MEDS: LEVAQUIN 500 MG PO (08:10)
[2025-07-13] MEDS: EVISTA 60 MG PO (08:10)
[2025-07-13] MEDS: DELTASONE 40 MG PO (08:10)
[2025-07-13] MEDS: TOPROL XL 25 MG PO ×2 (08:11→19:26)
[2025-07-13 08:13] LABS: Hematocrit 37.4 % (37.0-47.0); Hemoglobin 12.5 g/dL (12.0-16.0); Mean Corp Hgb Conc. 33.4 g/dL (33.0-37.0); Mean Corpuscular Volume 97.7 fL (81.0-99.0); Nucleated Red Blood Cells % 0 %; Platelet Count 335 10^3/uL (130-400); Red Cell Dist. Width 12.8 % (11.5-14.5)
[2025-07-13 08:42] LABS: Blood Urea Nitrogen 29 mg/dl (7-17); Calcium 9.5 mg/dl (8.4-10.2); Carbon Dioxide 30 mmol/L (22-30); Chloride 105 mmol/L (98-107); Estimated Creatinine Clearance 34 ml/min; Glucose 89 mg/dl (70-99); Potassium 4.4 mmol/L (3.5-5.1); Sodium 140 mmol/L (135-145); eGFR 56.25
[2025-07-13 10:08] VITALS: BP 179/87; PULSE 80; O2SAT 97
[2025-07-13] MEDS: MORPHINE SULFATE 1 MG IV (11:38)
--- NOTE | 2025-07-13 11:39 | CM ---
Reviewed the chart notes and spoke with the patient at the bedside. PT recommending SNF. Discussed with the patient area SNFs. Patient selected [facility] and [facility]. Referrals with [facility] sent via [facility]. CM continues to be available to
patient/family and is monitoring medical plan for needs at discharge.
Plan: Discharge to SNF/rehab once bed secured and precert obtained.
--- NOTE | 2025-07-13 12:18 | W.PN.HOSP.TC ---
Today's Communication/Plan
-
cont po abx
await placement to snf
wound vac
Assessment / Plan
Assessment / Plan
General: Well Developed, No Apparent Distress and Conversant
HEENT: Normocephalic, Atraumatic and Moist Mucous Membranes
Respiratory: Clear to Auscultation
Cardiac: Regular Rhythm and S1/S2; Negative Murmur, Rub or Gallop
GI: Soft, Nontender, Nondistended and Normal Bowel Sounds; Negative Organomegaly
Rectal: Deferred by Provider
Musculoskeletal: No Clubbing, No Cyanosis and No Edema
Skin: Left leg wound covered with wound VAC drainage.
Neuro: Awake, AO x 3 and Nonfocal/Grossly Intact
Psych: Calm
A/P: Patient is an 80y F with PMH significant for L ankle wound and chronic venous insufficiency who presents to ED for evaluation of worsening L ankle wound.
Leukocytoclastic Vasculitis
Left Ankle Wound with superimposed infection
- Biopsy results from 05/28 reviewed and shows leukocytoclastic vasculitis.
- PO prednisone for vasculitis and monitor for any clinical changes. Recommended outpatient rheumatology follow-up
- Follow-up on the wound culture with polymicrobial growth. Blood cultures remain negative.
- Patient was started on broad-spectrum antibiotics with vancomycin and cefepime and now transition to p.o. Levaquin. Keflex also added.
- Patient underwent wound debridement by vascular surgery. Arterial Doppler added.
- Per vascular surgery patient will require wound VAC upon discharge. Wound care following and wound care instructions added.
Uncontrolled Hypertension
- Has had adverse effects in the past due to amlodipine.
- Start Toprol BID for now and titrate as needed for BP control. Blood pressure could also be elevated in the setting of leg pain.
- IV hydralazine for very high BP. BP currently at 153/76 hr 74
- Adjust regimen as needed during stay for improved control. Probably will need to be added for additional regimen. If patient not on diclofenac can consider starting patient on losartan or ARB. Otherwise may need to consider p.o. hydralazine.
Osteoporosis
- Continue with home meds
Elevated creatinine
-Downtrended. Monitor.
Mild hyperkalemia
- Resolved.
DVT Prophylaxis: Lovenox
Code Status: Full
PT/OT rec SNF. Case management aware.
Anticipated Discharge: > 48 hours
Subjective/Interval History
-
Date of Service: July 13, 2025
States of left leg pain
Objective Data
-
Labs:
Laboratory Results
07/13/25
07:32
WBC 11.7 H
Hgb 12.5
Hct 37.4
Plt Count 335
Sodium 140
Potassium 4.4
Chloride 105
Carbon Dioxide 30
BUN 29 H
Creatinine 1.0
Glucose 89
Calcium 9.5
Vital Signs:
Vital Signs
Temp Pulse Resp BP Pulse Ox
98.4 F 71 16 184/89 95
07/13/25 07:18 07/13/25 08:11 07/13/25 07:18 07/13/25 08:11 07/13/25 07:18
I&O
07/12/25 07/13/25 07/14/25
06:59 06:59 06:59
Intake Total 240 / 240 720 / 720
Balance 240 / 240 720 / 720
[2025-07-13] MEDS: SENOKOT-S 1 TABLET PO ×2 (12:19→19:26)
[2025-07-13 12:26] VITALS: BP 153/76
[2025-07-13 15:02] VITALS: BP 147/72
[2025-07-13] MEDS: LOVENOX 40 MG SC (16:33)
[2025-07-13 23:08] VITALS: BP 159/76
[2025-07-14] MEDS: TYLENOL 650 MG PO ×5 (02:25→20:54)
[2025-07-14] MEDS: ROXICODONE 5 MG PO ×5 (02:26→20:54)
[2025-07-14 05:52] VITALS: BMI 19.5
[2025-07-14 06:06] LABS: Hematocrit 35.0 % (37.0-47.0); Hemoglobin 11.3 g/dL (12.0-16.0); Mean Corp Hgb Conc. 32.3 g/dL (33.0-37.0); Mean Corpuscular Volume 99.2 fL (81.0-99.0); Nucleated Red Blood Cells % 0 %; Platelet Count 289 10^3/uL (130-400); Red Cell Dist. Width 12.7 % (11.5-14.5)
[2025-07-14 06:34] LABS: Blood Urea Nitrogen 33 mg/dl (7-17); Calcium 9.4 mg/dl (8.4-10.2); Carbon Dioxide 26 mmol/L (22-30); Chloride 107 mmol/L (98-107); Estimated Creatinine Clearance 34 ml/min; Glucose 100 mg/dl (70-99); Potassium 4.5 mmol/L (3.5-5.1); Sodium 136 mmol/L (135-145); eGFR 56.25
[2025-07-14 07:35] VITALS: BP 188/96
[2025-07-14] MEDS: SENOKOT-S 1 TABLET PO ×2 (08:33→20:53)
[2025-07-14] MEDS: PEPCID 20 MG PO (08:33)
[2025-07-14] MEDS: PROTONIX 40 MG PO (08:33)
[2025-07-14] MEDS: EVISTA 60 MG PO (08:33)
[2025-07-14] MEDS: KEFLEX 500 MG PO ×4 (08:33→20:53)
[2025-07-14] MEDS: DELTASONE 40 MG PO (08:33)
[2025-07-14] MEDS: TOPROL XL 25 MG PO ×2 (08:33→20:53)
[2025-07-14] MEDS: LEVAQUIN 500 MG PO (08:34)
--- NOTE | 2025-07-14 08:48 | W.PN.HOSP.TC ---
Today's Communication/Plan
-
Continue with antibiotics
Monitor blood pressure
Awaiting placement to SNF
Pain control
Assessment / Plan
Assessment / Plan
General: Well Developed, No Apparent Distress and Conversant
HEENT: Normocephalic, Atraumatic and Moist Mucous Membranes
Respiratory: Nonlabored respiration
Cardiac: Regular Rhythm and S1/S2;
GI: Soft, Nontender, Nondistended and Normal Bowel Sounds; Negative Organomegaly
Rectal: Deferred by Provider
Skin: Left leg wound with wound VAC drainage.
Neuro: Awake, AO x 3 and Nonfocal/Grossly Intact
Psych: Calm
A/P: Patient is an 80y F with PMH significant for L ankle wound and chronic venous insufficiency who presents to ED for evaluation of worsening L ankle wound.
Leukocytoclastic Vasculitis
Left Ankle Wound with superimposed infection not associated with venous insufficiency (not much seen)
- Biopsy results from 05/28 reviewed and shows leukocytoclastic vasculitis.
- PO prednisone for vasculitis and monitor for any clinical changes. Recommended outpatient rheumatology follow-up
- Follow-up on the wound culture with polymicrobial growth. Blood cultures remain negative.
- Patient was started on broad-spectrum antibiotics with vancomycin and cefepime and now transition to p.o. Levaquin. Keflex also added.
- Patient underwent wound debridement by vascular surgery. Arterial Doppler completed
- Per vascular surgery patient will require wound VAC upon discharge. Wound care following and wound care instructions added.
Uncontrolled Hypertension
- Has had adverse effects in the past due to amlodipine.
- Start Toprol BID for now and titrate as needed for BP control. Blood pressure could also be elevated in the setting of leg pain.
- IV hydralazine for very high BP. BP currently at 145/76
- Adjust regimen as needed during stay for improved control. If patient not on diclofenac can consider starting patient on losartan or ARB. Otherwise may need to consider p.o. hydralazine.
Osteoporosis
- Continue with home meds
Elevated creatinine
-Downtrended. Monitor.
Mild hyperkalemia
- Resolved.
DVT Prophylaxis: Lovenox
Code Status: Full
PT/OT rec SNF. Case management aware. Awaiting placement
Anticipated Discharge: Within 24 hours
Subjective/Interval History
-
Date of Service: July 14, 2025
States of intermittent left leg pain
Objective Data
-
Labs:
Laboratory Results
07/14/25
05:18
WBC 11.3 H
Hgb 11.3 L
Hct 35.0 L
Plt Count 289
Sodium 136
Potassium 4.5
Chloride 107
Carbon Dioxide 26
BUN 33 H
Creatinine 1.0
Glucose 100 H
Calcium 9.4
Vital Signs:
Vital Signs
Temp Pulse Resp BP Pulse Ox
97.7 F 66 16 184/88 95
07/14/25 07:35 07/14/25 08:33 07/14/25 07:35 07/14/25 08:33 07/14/25 07:35
I&O
07/13/25 07/14/25 07/15/25
06:59 06:59 06:59
Intake Total 720 / 720 760 / 760
Balance 720 / 720 760 / 760
[2025-07-14 09:35] VITALS: BP 175/92; PULSE 75
[2025-07-14 10:30] VITALS: BP 145/76
[2025-07-14 15:40] VITALS: BP 149/82
[2025-07-14] MEDS: LOVENOX 40 MG SC (16:18)
[2025-07-14 23:00] VITALS: BP 144/73
[2025-07-15] MEDS: TYLENOL 650 MG PO ×3 (03:27→19:51)
[2025-07-15] MEDS: ROXICODONE 5 MG PO ×4 (03:27→19:47)
[2025-07-15 03:30] VITALS: BMI 19.5
[2025-07-15 07:00] VITALS: BP 200/95
[2025-07-15] MEDS: SENOKOT-S 1 TABLET PO ×2 (07:31→19:27)
[2025-07-15] MEDS: PEPCID 20 MG PO (07:31)
[2025-07-15] MEDS: PROTONIX 40 MG PO (07:31)
[2025-07-15] MEDS: DELTASONE 40 MG PO (07:31)
[2025-07-15] MEDS: TOPROL XL 25 MG PO (07:31)
[2025-07-15] MEDS: LEVAQUIN 500 MG PO (07:32)
[2025-07-15] MEDS: EVISTA 60 MG PO (07:32)
[2025-07-15] MEDS: KEFLEX 500 MG PO ×4 (07:33→21:30)
[2025-07-15 07:47] LABS: Hematocrit 38.9 % (37.0-47.0); Hemoglobin 12.6 g/dL (12.0-16.0); Mean Corp Hgb Conc. 32.4 g/dL (33.0-37.0); Mean Corpuscular Volume 100.5 fL (81.0-99.0); Platelet Count 323 10^3/uL (130-400); Red Cell Dist. Width 12.7 % (11.5-14.5)
[2025-07-15 08:00] LABS: Blood Urea Nitrogen 28 mg/dl (7-17); Calcium 9.7 mg/dl (8.4-10.2); Carbon Dioxide 28 mmol/L (22-30); Chloride 104 mmol/L (98-107); Estimated Creatinine Clearance 34 ml/min; Glucose 86 mg/dl (70-99); Potassium 4.8 mmol/L (3.5-5.1); Sodium 138 mmol/L (135-145); eGFR 56.25
[2025-07-15 08:11] LABS: Nucleated Red Blood Cells % 0 %
[2025-07-15 09:07] VITALS: BP 191/95
[2025-07-15 09:47] VITALS: BP 174/86
--- NOTE | 2025-07-15 09:47 | W.PN.ID1 ---
Date of Service
Date of Service: July 15, 2025
Today's Communication
- c/w levofloxacin 500 mg PO Qday, keflex 500 mg PO QID - continue antibiotics x3 days post operatively - today is final day
Assessment / Plan
LLE Venous Wound with possible suprainfection
Vasculitis
- wound culture in progress - polymicrobial as expected
- blood cultures x2 in progress no growth to date
- for debridement today
- c/w levofloxacin 500 mg PO Qday, keflex 500 mg PO QID - continue antibiotics x3 days post operatively - today is final day
- steroids per primary team
Chief Complaint
-: Other (wound infection, cellulitis)
Subjective / Review of Systems
afebrile
no events overnight
Vital Signs / Physical Exam
Vital Signs
Vital Signs
Temp Pulse Resp BP Pulse Ox
97.6 F 69 12 191/95 96
07/15/25 07:00 07/15/25 07:31 07/15/25 07:00 07/15/25 09:07 07/15/25 07:00
Physical Exam
Constitutional: No Acute Distress
Cardiovascular: Regular Rate and S1/S2; Negative Murmur or Rub
Pulmonary: Clear and Symmetric; Negative Wheezes or Rales
Gastrointestinal: Soft, Non Tender, Non Distended and Normal Bowel Sounds
Skin: Warm and Dry; Negative Rash or Jaundice
Wound: Other (wound vac in place, surrounding tissue no erythema warmth, tenderness)
Objective Data
Lab Data
Lab Results
07/15/25 06:59
07/15/25 06:59
ESR Cancelled 07/09/25 21:15
Estimated Creat Clear 34 ml/min 07/15/25 06:59
Lactic Acid 1.0 mmol/L (0.7-2.0) 07/09/25 19:12
Total Bilirubin 0.3 mg/dl (0.2-1.3) 07/09/25 15:03
AST 26 U/L (14-36) 07/09/25 15:03
ALT 19 U/L (0-35) 07/09/25 15:03
Alkaline Phosphatase 67 U/L (38-126) 07/09/25 15:03
C-Reactive Protein Cancelled 07/09/25 21:15
Most recent labs reviewed.
Micro Results:
07/09/25 19:12 Blood Culture - Final
Blood/Venous No Growth - Final Report
07/09/25 15:03 Blood Culture - Final
Blood/Venous No Growth - Final Report
07/09/25 19:12 Wound Culture - Final
Leg - Left Proteus species
Pseudomonas species
Escherichia coli
Group F Streptococcus
Gram Stain - Final
--- NOTE | 2025-07-15 10:15 | CM ---
Addendum entered by Zora Lentz RN 07/15/25 15:02:
[facility] no beds. [facility] no beds.
Pac Data given to patient she requested [facility] . Referral placed awaiting response.
Original Note:
Wound vac instructions as per wound care nurse placed in updated SNF referral.
Call to [facility] and [facility] for bed. Awaiting response.
PT OT indicates SNF.
Continues with pain requiring pain meds.
Will need auth for SNF.
PLAN To Snf after located and auth obtained
--- NOTE | 2025-07-15 10:23 | W.PN.HOSP.TC ---
Today's Communication/Plan
-
see A/P
Assessment / Plan
Assessment / Plan
HPI: 80 yo F with PMH significant for L ankle wound and chronic venous insufficiency, p/w worsening L ankle wound.
A/P:
# Leukocytoclastic Vasculitis
# Left Ankle Wound with superimposed infection not associated with venous insufficiency (not much seen)
Biopsy result from 05/28 showed leukocytoclastic vasculitis.
PO prednisone for vasculitis and monitor for any clinical changes. Recommended outpatient rheumatology follow-up
wound culture with polymicrobial growth. Blood cultures remain negative.
broad-spectrum antibiotics vancomycin and cefepime now transitioned to p.o. Levaquin and Keflex x3 days post debridement
s/p wound debridement by vascular surgery.
Per vascular surgery patient will require wound VAC upon discharge.
Dispo plan to SNF
# Uncontrolled Hypertension
Has had adverse effects in the past due to amlodipine.
Change Toprol BID to Coreg 12.5 BID for better BP effect
IV hydralazine PRN
# Osteoporosis
Continue with home meds
DVT Prophylaxis: Lovenox SQ
Code Status: Full
Dispo: PT/OT rec SNF.
DW RN
DW CM
total time today 51 ekaterina
Anticipated Discharge: 24 - 48 hours
Subjective/Interval History
-
Date of Service: July 15, 2025
Objective Data
-
Labs:
Laboratory Results
07/15/25
06:59
WBC 12.5 H
Hgb 12.6
Hct 38.9
Plt Count 323
Sodium 138
Potassium 4.8
Chloride 104
Carbon Dioxide 28
BUN 28 H
Creatinine 1.0
Glucose 86
Calcium 9.7
Vital Signs:
Vital Signs
Temp Pulse Resp BP Pulse Ox
36.4 C 81 12 174/86 96
07/15/25 07:00 07/15/25 09:47 07/15/25 07:00 07/15/25 09:47 07/15/25 07:00
I&O
07/14/25 07/15/25 07/16/25
06:59 06:59 06:59
Intake Total 760 / 760 960 / 960
Balance 760 / 760 960 / 960
Review of Systems
-
History Source: Patient
All other systems: Reviewed and negative
Physical Exam
-
General: Well Developed, No Apparent Distress, Comfortable and Conversant
HEENT: Normocephalic, Atraumatic and Moist Mucous Membranes
Respiratory: Clear to Auscultation and Non Labored Respirations; Negative Accessory Resp Muscle Use
Cardiac: Regular Rhythm and S1/S2
GI: Soft, Nontender, Nondistended and Normal Bowel Sounds; Negative Organomegaly
Rectal: Deferred by Provider
Musculoskeletal: No Clubbing, No Cyanosis and No Edema
Skin: Other (Wound vac to L ankle )
Neuro: Awake and Alert
Psych: Calm and Intact Judgement/Insight
Data Reviewed
-
Labs: Labs Reviewed by me
[2025-07-15 11:50] VITALS: BP 158/84
--- NOTE | 2025-07-15 11:58 | WOUNDNOTE ---
[facility] RN note: Patient for discharge once SNF rehab secured. Spoke with ABBY Blakely who stated she is waiting to here back from a couple of places. Zora was tiger texted vac needs for SNF earlier this morning. Taiwo texted Misty [facility], Vascular PA
who confirmed can delay vac dressing change/removal till tomorrow if SNF transfer is tomorrow instead of today. Patient has pain during wound care and would not want to remove/change vac dressing today and have to have it removed tomorrow for
transfer. Discussed with ASHLEY Torres.
[2025-07-15 15:00] VITALS: BP 151/75
[2025-07-15] MEDS: DULCOLAX 10 MG RECTAL (16:19)
[2025-07-15] MEDS: LOVENOX 40 MG SC (17:25)
[2025-07-15] MEDS: COREG 12.5 MG PO (19:31)
[2025-07-15] MEDS: FLEET PHOSPHATE ENEMA-ADULT 135 ML RECTAL (21:30)
[2025-07-15 23:47] VITALS: BP 190/87
[2025-07-16] MEDS: COMPAZINE 5 MG IV (00:24)
[2025-07-16] MEDS: ROXICODONE 5 MG PO ×4 (00:28→18:15)
[2025-07-16] MEDS: APRESOLINE 5 MG IV (00:32)
--- NOTE | 2025-07-16 00:36 | PTCARENOTE ---
Addendum entered by Monisha Major RN 07/16/25 04:07:
After multiple attempts, pt had a large BM. Pt feel weak and tire. Will cont w/ tx plan.
Original Note:
Pt has been c/o constipation and add pain. Pt was given the Dulcolax rectal, fleet enema, and milk and molasses enema with minimal results. Pt has a small BM feels the stool is stuck. C/o nausea and TRAY SERVER notified. Compazine IV order. Will cont w/ tx
plan and monitor pain level. Systolic BP was high at midnight and hydralazine give per order.
[2025-07-16 01:48] VITALS: BP 119/79
[2025-07-16 02:48] VITALS: BP 136/78
[2025-07-16 06:00] VITALS: BMI 19.7
[2025-07-16 07:00] VITALS: BP 138/74
--- NOTE | 2025-07-16 07:34 | W.PN.UPDATE ---
Update Note
Progress Note Update
The left lower extremity arterial duplex examination was personally reviewed. She has multiphasic waveforms from the common femoral artery through the popliteal artery with no focal velocity elevations to suggest significant stenosis. She has
monophasic waveforms in the posterior tibial artery and dorsalis pedis artery.
On physical exam she has a palpable posterior tibial artery pulse. Her biopsy results were notable for leukocytoclastic vasculitis.
My recommendation for now is to continue with local wound care and treatment of her vasculitis
Wound VAC
We will also plan to update her YAZMIN/TBI
She can follow-up with me in the office after discharge as well as the [facility] wound care center
Call with questions or concerns
Jared Soares III, MD
Vascular Surgery
[facility]
[2025-07-16 07:56] LABS: Hematocrit 36.9 % (37.0-47.0); Hemoglobin 12.3 g/dL (12.0-16.0); Mean Corp Hgb Conc. 33.3 g/dL (33.0-37.0); Mean Corpuscular Volume 97.4 fL (81.0-99.0); Platelet Count 321 10^3/uL (130-400); Red Cell Dist. Width 12.6 % (11.5-14.5)
[2025-07-16 08:16] LABS: Blood Urea Nitrogen 33 mg/dl (7-17); Calcium 9.0 mg/dl (8.4-10.2); Carbon Dioxide 27 mmol/L (22-30); Chloride 103 mmol/L (98-107); Estimated Creatinine Clearance 42 ml/min; Glucose 110 mg/dl (70-99); Magnesium 2.1 mg/dl (1.6-2.3); Potassium 4.5 mmol/L (3.5-5.1); Sodium 135 mmol/L (135-145); eGFR > 60.00
[2025-07-16] MEDS: EVISTA 60 MG PO (08:25)
[2025-07-16] MEDS: PROTONIX 40 MG PO (08:25)
[2025-07-16] MEDS: PEPCID 20 MG PO (08:25)
[2025-07-16] MEDS: COREG 12.5 MG PO ×2 (08:25→19:22)
[2025-07-16] MEDS: SENOKOT-S 1 TABLET PO ×2 (08:25→19:22)
[2025-07-16] MEDS: FLUSH (NSS) 1 FLUSH IV (08:26)
[2025-07-16] MEDS: DELTASONE 40 MG PO (08:26)
[2025-07-16] MEDS: TYLENOL 650 MG PO ×3 (08:37→18:16)
--- NOTE | 2025-07-16 09:07 | W.PN.HOSP.TC ---
Today's Communication/Plan
-
see A/P
Assessment / Plan
Assessment / Plan
HPI: 80 yo F with PMH significant for L ankle wound and chronic venous insufficiency, p/w worsening L ankle wound.
A/P:
# Leukocytoclastic Vasculitis
# Left Ankle Wound with superimposed infection not associated with venous insufficiency (not much seen)
Biopsy result from 05/28 showed leukocytoclastic vasculitis.
PO prednisone for vasculitis and monitor for any clinical changes. Recommended outpatient rheumatology follow-up
wound culture with polymicrobial growth. Blood cultures negative.
s/p wound debridement 07/12/2025 by vascular surgery.
broad-spectrum antibiotics vancomycin and cefepime transitioned to p.o. Levaquin and Keflex x3 days post debridement
Per vascular surgery, patient will require wound VAC upon discharge.
Check YAZMIN/TBI
Dispo plan to SNF
noted worsening leucocytosis today at 21k, defer to ID for Abx
# Uncontrolled Hypertension, improved
Has had adverse effects in the past due to amlodipine.
Changed Toprol BID to Coreg 12.5 BID for better BP effect , cont Coreg
IV hydralazine PRN
# Osteoporosis
Continue with home meds
# constipation, resolved following dulcolax
DVT Prophylaxis: Lovenox SQ
Code Status: Full
Dispo: PT/OT rec SNF.
DW CM
Anticipated Discharge: 24 - 48 hours
Subjective/Interval History
-
Date of Service: July 16, 2025
Objective Data
-
Labs:
Laboratory Results
07/16/25
06:45
WBC 21.2 H
Hgb 12.3
Hct 36.9 L
Plt Count 321
Sodium 135
Potassium 4.5
Chloride 103
Carbon Dioxide 27
BUN 33 H
Creatinine 0.8
Glucose 110 H
Calcium 9.0
Vital Signs:
Vital Signs
Temp Pulse Resp BP Pulse Ox
36.7 C 102 18 138/74 95
07/16/25 07:00 07/16/25 07:00 07/16/25 07:00 07/16/25 07:00 07/16/25 07:00
I&O
07/15/25 07/16/25 07/17/25
06:59 06:59 06:59
Intake Total 960 / 960 750 / 750
Balance 960 / 960 750 / 750
--- NOTE | 2025-07-16 09:13 | CM ---
Spoke with [facility] this Am . There is a bed available today.
Spoke with patient reviewed above she said she wants [facility] .
Pt will need auth .
TT to MD if pt ready for discharge.
[facility] NP [phone] Dr Saunders [phone]
PLAN To [facility] after auth and medically ready
--- NOTE | 2025-07-16 10:38 | W.PN.ID1 ---
Date of Service
Date of Service: July 16, 2025
Today's Communication
attribute leukocytosis to steroids
Assessment / Plan
LLE Venous Wound with possible suprainfection
Vasculitis
- wound culture was prior to debridement of necrotic tissue 07/12
- blood cultures x2 in progress no growth to date
- completed a 3 day course of antibiotics post operatively
- attribute leukocytosis to high dose steroids
- steroids per primary team
Chief Complaint
-: Other (wound infection, cellulitis)
Subjective / Review of Systems
called for leukocytosis in the context of high dose steroids
dealing with constipation - day 6 without a bowel movement, getting bowel regimen, has bowel sounds
Vital Signs / Physical Exam
Vital Signs
Vital Signs
Temp Pulse Resp BP Pulse Ox
98.1 F 102 18 138/74 95
07/16/25 07:00 07/16/25 07:00 07/16/25 07:00 07/16/25 07:00 07/16/25 07:00
Physical Exam
Constitutional: No Acute Distress
Cardiovascular: Regular Rate and S1/S2; Negative Murmur or Rub
Pulmonary: Clear and Symmetric; Negative Wheezes or Rales
Gastrointestinal: Soft, Non Tender, Non Distended and Normal Bowel Sounds
Skin: Warm, Dry and Other (skin around wound vac no erythema, warmth, or tenderness); Negative Rash or Jaundice
Lines: Other (wound vac bloody drainage)
Objective Data
Lab Data
Lab Results
07/16/25 06:45
07/16/25 06:45
ESR Cancelled 07/09/25 21:15
Estimated Creat Clear 42 ml/min 07/16/25 06:45
Lactic Acid 1.0 mmol/L (0.7-2.0) 07/09/25 19:12
Total Bilirubin 0.3 mg/dl (0.2-1.3) 07/09/25 15:03
AST 26 U/L (14-36) 07/09/25 15:03
ALT 19 U/L (0-35) 07/09/25 15:03
Alkaline Phosphatase 67 U/L (38-126) 07/09/25 15:03
C-Reactive Protein Cancelled 07/09/25 21:15
Most recent labs reviewed.
Micro Results:
07/09/25 19:12 Blood Culture - Final
Blood/Venous No Growth - Final Report
07/09/25 15:03 Blood Culture - Final
Blood/Venous No Growth - Final Report
07/09/25 19:12 Wound Culture - Final
Leg - Left Proteus species
Pseudomonas species
Escherichia coli
Group F Streptococcus
Gram Stain - Final
[2025-07-16 15:00] VITALS: BP 124/56
--- NOTE | 2025-07-16 15:28 | WOUNDNOTE ---
L POSTERIOR LOWER LEG
--- NOTE | 2025-07-16 15:31 | WOUNDNOTE ---
NADYA RN NOTE: [facility] until tomorrow. Upon patient request asked BLUNGER LOADER Misty River if wound vac dressing can also be delayed until tomorrow. NELLA River instructed to remove vac dressing and apply adaptic and saline
wet to dry dressing today. To be changed again tomorrow if does not go to [facility] early, per NELLA River. Wound much improved, tendon exposed and red granulating tissue surrounding, scant tolentino. Patient premedicated for pain, complained of allot of pain
during removal of dressing. Will update wound care orders and notified nurse Bernadette. When patient does go to SNF, nursing needs to place wound vac machine in soiled utility rm and will notify [facility] for pickup.
[2025-07-16 15:38] VITALS: BP 106/62; BP 123/66; PULSE 106; O2SAT 95
[2025-07-16] MEDS: LOVENOX 40 MG SC (18:12)
[2025-07-16 23:19] VITALS: BP 132/67
[2025-07-17] MEDS: TYLENOL 650 MG PO ×3 (00:24→13:03)
[2025-07-17] MEDS: ROXICODONE 5 MG PO ×3 (00:24→13:03)
[2025-07-17 06:00] VITALS: BMI 19.6
[2025-07-17 07:03] LABS: Hematocrit 33.6 % (37.0-47.0); Hemoglobin 10.9 g/dL (12.0-16.0); Mean Corp Hgb Conc. 32.4 g/dL (33.0-37.0); Mean Corpuscular Volume 99.1 fL (81.0-99.0); Platelet Count 272 10^3/uL (130-400); Red Cell Dist. Width 12.8 % (11.5-14.5)
[2025-07-17 07:19] LABS: Blood Urea Nitrogen 38 mg/dl (7-17); Calcium 9.0 mg/dl (8.4-10.2); Carbon Dioxide 30 mmol/L (22-30); Chloride 103 mmol/L (98-107); Estimated Creatinine Clearance 34 ml/min; Glucose 95 mg/dl (70-99); Potassium 4.4 mmol/L (3.5-5.1); Sodium 136 mmol/L (135-145); eGFR 56.25
[2025-07-17] MEDS: PROTONIX 40 MG PO (08:10)
[2025-07-17] MEDS: EVISTA 60 MG PO (08:10)
[2025-07-17] MEDS: DELTASONE 40 MG PO (08:10)
[2025-07-17] MEDS: COREG 12.5 MG PO (08:10)
[2025-07-17] MEDS: SENOKOT-S 1 TABLET PO (08:10)
[2025-07-17] MEDS: PEPCID 20 MG PO (08:10)
[2025-07-17 08:15] VITALS: BP 154/75
--- NOTE | 2025-07-17 10:00 | W.PN.HOSP.TC ---
Today's Communication/Plan
-
for SNF today
Assessment / Plan
Assessment / Plan
HPI: 80 yo F with PMH significant for L ankle wound and chronic venous insufficiency, p/w worsening L ankle wound.
A/P:
# Leukocytoclastic Vasculitis
# Left Ankle Wound with superimposed infection not associated with venous insufficiency (not much seen)
Biopsy result from 05/28 showed leukocytoclastic vasculitis.
Pt was started with PO prednisone 40 mg this admission.
D/w Rheum Dr Masterson on the phone, she recc to continue prednisone for 2 weeks total with taper. She will help arrange outpt follow up for pt.
Noted wound culture with polymicrobial growth. Blood cultures negative.
s/p wound debridement 07/12/2025 by vascular surgery.
broad-spectrum antibiotics vancomycin and cefepime transitioned to p.o. Levaquin and Keflex x3 days post debridement
Per vascular surgery, patient will require wound VAC upon discharge.
YAZMIN/TBI noted.
Dispo plan to SNF
Current leucocytosis attributed to steroid per ID
# Uncontrolled Hypertension, improved
Has had adverse effects in the past due to amlodipine.
Changed Toprol BID to Coreg 12.5 BID for better BP effect , cont Coreg
IV hydralazine PRN
# Osteoporosis
Continue with home meds
# constipation, resolved following dulcolax
DVT Prophylaxis: Lovenox SQ
Code Status: Full
Dispo: PT/OT rec SNF.
DW CM
Anticipated Discharge: Today
Subjective/Interval History
-
Date of Service: July 17, 2025
Objective Data
-
Labs:
Laboratory Results
07/17/25
05:57
WBC 13.3 H
Hgb 10.9 L
Hct 33.6 L
Plt Count 272
Sodium 136
Potassium 4.4
Chloride 103
Carbon Dioxide 30
BUN 38 H
Creatinine 1.0
Glucose 95
Calcium 9.0
Vital Signs:
Vital Signs
Temp Pulse Resp BP Pulse Ox
36.6 C 75 18 154/75 98
07/17/25 08:15 07/17/25 08:15 07/17/25 08:15 07/17/25 08:15 07/17/25 08:15
I&O
07/16/25 07/17/25 07/18/25
06:59 06:59 06:59
Intake Total 750 / 750 530 / 530
Output Total 200 / 200
Balance 750 / 750 330 / 330
Review of Systems
-
History Source: Patient
All other systems: Reviewed and negative
Physical Exam
-
General: Well Developed, No Apparent Distress, Comfortable and Conversant
HEENT: Normocephalic, Atraumatic and Moist Mucous Membranes
Respiratory: Clear to Auscultation and Non Labored Respirations; Negative Accessory Resp Muscle Use
Cardiac: Regular Rhythm and S1/S2
GI: Soft, Nontender, Nondistended and Normal Bowel Sounds; Negative Organomegaly
Rectal: Deferred by Provider
Musculoskeletal: No Clubbing, No Cyanosis and No Edema
Neuro: Awake and Alert
Psych: Calm and Intact Judgement/Insight
Data Reviewed
-
Labs: Labs Reviewed by me
[2025-07-17 10:49] VITALS: BP 142/74
--- NOTE | 2025-07-17 11:40 | CM ---
entered order for discharge.
Spoke with [facility] a bed available today.
[facility] wound vac ready.
Spoke with patient she wants [facility] .
call [place] [phone] spoke with Nereida brandon obtained from 07/17/25 to 07/22/25 Auth # [id number] [facility] call [phone].
[facility] aware and accepted pt today.
Acute care ambulance auth #[id number] Medical nec form completed.
[facility]
report [phone]
fax [phone]
PLAN To [facility] today
--- NOTE | 2025-07-17 11:42 | W.PN.ID1 ---
Date of Service
Date of Service: July 17, 2025
Today's Communication
remains well off of antibiotics - follow up with rheumatology and wound care
Assessment / Plan
LLE Venous Wound with possible suprainfection
Vasculitis
- wound culture was prior to debridement of necrotic tissue 07/12
- blood cultures x2 in progress no growth to date
- completed a 3 day course of antibiotics post operatively
- attribute leukocytosis to high dose steroids and possibly severe constipation which has now resolved
- steroids per primary team
- follow up with rheumatology and wound care
ID service will no longer actively follow this patient please recall for further questions
Chief Complaint
-: Other (wound infection, cellulitis)
Subjective / Review of Systems
afebrile
bp stable
had BM overnight after several enemas
Vital Signs / Physical Exam
Vital Signs
Vital Signs
Temp Pulse Resp BP Pulse Ox
97.9 F 77 16 142/74 94
07/17/25 10:49 07/17/25 10:49 07/17/25 10:49 07/17/25 10:49 07/17/25 10:49
Physical Exam
Constitutional: No Acute Distress
Cardiovascular: Regular Rate and S1/S2; Negative Murmur or Rub
Pulmonary: Clear and Symmetric; Negative Wheezes or Rales
Gastrointestinal: Soft, Non Tender, Non Distended and Normal Bowel Sounds
Skin: Warm and Dry; Negative Rash or Jaundice
Lines: Other (wound vac)
Objective Data
Lab Data
Lab Results
07/17/25 05:57
07/17/25 05:57
ESR Cancelled 07/09/25 21:15
Estimated Creat Clear 34 ml/min 07/17/25 05:57
Lactic Acid 1.0 mmol/L (0.7-2.0) 07/09/25 19:12
Total Bilirubin 0.3 mg/dl (0.2-1.3) 07/09/25 15:03
AST 26 U/L (14-36) 07/09/25 15:03
ALT 19 U/L (0-35) 07/09/25 15:03
Alkaline Phosphatase 67 U/L (38-126) 07/09/25 15:03
C-Reactive Protein Cancelled 07/09/25 21:15
Most recent labs reviewed.
Micro Results:
07/09/25 19:12 Blood Culture - Final
Blood/Venous No Growth - Final Report
07/09/25 15:03 Blood Culture - Final
Blood/Venous No Growth - Final Report
07/09/25 19:12 Wound Culture - Final
Leg - Left Proteus species
Pseudomonas species
Escherichia coli
Group F Streptococcus
Gram Stain - Final
--- NOTE | 2025-07-17 12:02 | W.DCSUMMARY ---
Discharge Summary
Discharge Data
Date of Admission: 07/09/25
Date of Discharge: 07/17/25
Total time spent discharging patient (in min): 40
-
Pending Results: No
Hospital Course
Principal Diagnosis:
Left Ankle Wound due to Leukocytoclastic Vasculitis with superimposed infection.
Chronic Diagnoses:�
Osteoporosis
Hypertension
chronic venous insufficiency
Consultations:�
Infectious disease
Vascular surgery
Procedures:�
L heel wound debridement 07/12/2025 by vascular surgery.
Clinical course:�
This is a 80 yo F with past medical history as stated above, who presented with worsening left ankle wound.
Problem 1:
Left Ankle Wound due to Leukocytoclastic Vasculitis with superimposed infection.
Pt's L ankle biopsy from 05/28 showed leukocytoclastic vasculitis.
She was started with PO prednisone 40 mg this admission, and can continue outpatient taper over the next 7 to 10 days.
She has been informed to follow-up with rheumatology outpatient.
She underwent left heel wound debridement on 07/12/2025 by vascular surgery.
This was followed by wound VAC for which she can continue following discharge at SNF.
She did receive broad-spectrum antibiotics vancomycin and cefepime while in the hospital, and these were transitioned to p.o. Levaquin and Keflex x3 days post debridement.
No further antibiotic per ID.
She was discharged to SNF per PT OT recommendation.
Problem 2:
Uncontrolled Hypertension, improved.
Her prior to admission Toprol was changed to Coreg 12.5 mg twice daily for better blood pressure control. She can continue with Coreg going forward.
As for the rest of her medical problems, they were stable during her hospital stay.
Discharge Plan
-
Patient Disposition: Senior Care/SNF
Discharge Diagnosis/Procedures: Leukocytoclastic Vasculitis of Left Ankle with superimposed infection (completed antibiotic course);
Uncontrolled Hypertension
Condition: Fair
Diet: As tolerated
Activity: As tolerated
Driving Restrictions: Not until seen by your Dr
Wound Care: Wound Care Instructions
LLE wound-Wound vac therapy-use Peel and Place vac dressing, change weekly and prn. Use adaptic and black foam and change every 48 - 72 hours (i. e. Opkufui-Vsaovysbxr-[id number]) and prn if unable to obtain a seal until Weekly Peel and Place dressing
kits delivered. Low Intensity, Continuous at 125 mmHg. Upon discharge or transfer to another facility, remove VAC foam and apply adaptic over tendon, NS moistened gauze dressing unless home VAC unit available.
L knee high Tubigrip tolerated; remove at bedtime; reapply every morning.
Elevate heels off bed with pillow or air chair cushion.
Follow up at wound care center call for an appointment.
Referrals:
Kanwal Masterson MD [Active, Rheumatology] - in one to two weeks
Jc Sanchez MD [Active, Plastic Surgery]
Jarrell Grimes DO [Family Provider, Family Practice] - in less than [address] CRNP [Specified Professional Personl, Vascular Surgery] - 08/01/25 9:00 am
Additional Discharge Medication Instructions: Stop Metoprolol and use Coreg instead for better BP control.
Continue prednisone with taper over next 9 days
Prescriptions:
New
carvedilol 12.5 mg Tablet
12.5 mg PO BID Qty: 60 0RF
oxycodone 5 mg Tablet
5 mg PO Q4HPRN PRN (Reason: moderate pain) Qty: 10 0RF
sennosides-docusate sodium [Senna Plus] 8.6-50 mg Tablet
1 tab PO BID Qty: 60 0RF
prednisone 10 mg Tablet
See Rx Instructions .ROUTE .COMPLEX Qty: 30 0RF
Rx Instructions:
Take By Mouth:
30 mg daily x3 days, 20 mg daily x3 days, 10 mg daily x3 days.
Continued
clobetasol 0.05 % cream
1 applic TOPICAL BID
raloxifene 60 mg tablet
60 mg PO DAILY
acetaminophen [Tylenol] 325 mg Tablet
650 mg PO QID PRN (Reason: pain)
diclofenac sodium 50 mg Tablet,Delayed Release (Dr/Ec)
50 mg PO Q12H PRN (Reason: pain)
famotidine 20 mg Tablet
20 mg PO BID
Patient Comments:
pt takes it with diclofenac sodium
Discontinued
cephalexin 500 mg capsule
500 mg PO BID
metoprolol succinate 25 mg tablet extended release 24 hr
12.5 mg PO DAILY
Discharge Orders:
Discharge Patient (As Directed); Ordered 07/17/25
Ordered By: Eilda Mckeon
Discharge Date and Time
Print Language: EQUATORIAL GUINEAN
[2025-07-17] MEDS: FLUZONE HIGH-DOSE 2025-26 0.5 ML IM (13:02)
--- NOTE | 2025-07-17 16:36 | WOUNDNOTE ---
WOC RN note: Notified [employer] via [employer] re: stop bill date of hospital rental vac ulta pump as of 07/17/25 and pump picker operator (work order #[id number]).
== END 2025-07-17 15:17 | DRG 501 ==
LOC: 4 EAST ACU 20:20
PROVIDERS: Emergency Medicine; Hospitalist; ADMITTING PHYSICIAN Hospitalist; ATTENDING PHYSICIAN Internal Medicine; CONSULT PHYSICIAN Student in an Organized Health Care Education/Training Program; CONSULT PHYSICIAN Surgery; EMERGENCY PHYSICIAN Emergency Medicine; FAMILY PHYSICIAN Family Medicine; OTHER PHYSICIAN Surgery Vascular Surgery
PROC: 06BQ0ZZ Excision of Left Saphenous Vein, Open Approach (ICD-10-PCS; 2025-07-12)
PROC: 0KBT0ZZ Excision of Left Lower Leg Muscle, Open Approach (ICD-10-PCS; 2025-07-12)
PROC: 3E02340 Introduction of Influenza Vaccine into Muscle, Percutaneous Approach (ICD-10-PCS; 2025-07-17)
DX: M31.0 Hypersensitivity angiitis (principal); I96 Gangrene, not elsewhere classified; L97.328 Non-pressure chronic ulcer of left ankle with other specified severity; L03.116 Cellulitis of left lower limb; I87.2 Venous insufficiency (chronic) (peripheral); I10 Essential (primary) hypertension; K59.00 Constipation, unspecified; M81.0 Age-related osteoporosis without current pathological fracture; E87.5 Hyperkalemia; B96.4 Proteus (mirabilis) (morganii) as the cause of diseases classified elsewhere; B96.5 Pseudomonas (aeruginosa) (mallei) (pseudomallei) as the cause of diseases classified elsewhere; B96.20 Unspecified Escherichia coli [E. coli] as the cause of diseases classified elsewhere; B95.4 Other streptococcus as the cause of diseases classified elsewhere; Z23 Encounter for immunization
CPT/HCPCS: 11043; 11046; 80048; 80053; 83605; 83735; 85025; 85027; 85652; 86140; 87040; 87070; 87205; 90662; 93922; 93926; 96374; 96375; 97110; 97116; 97163; 97166; 97530; 99214; 99284; G0008

== ENCOUNTER → 2025-07-19 11:17 | Outpatient (REF) | payer OTHER, SELFPAY ==
[2025-07-19 13:42] LABS: Hematocrit 35.4 % (37.0-47.0); Hemoglobin 11.3 g/dL (12.0-16.0); Mean Corp Hgb Conc. 31.9 g/dL (33.0-37.0); Mean Corpuscular Volume 100.0 fL (81.0-99.0); Nucleated Red Blood Cells % 0 %; Platelet Count 322 10^3/uL (130-400); Red Cell Dist. Width 12.6 % (11.5-14.5)
[2025-07-19 13:47] LABS: Blood Urea Nitrogen 28 mg/dl (7-17); Calcium 9.5 mg/dl (8.4-10.2); Carbon Dioxide 32 mmol/L (22-30); Chloride 101 mmol/L (98-107); Glucose 86 mg/dl (70-99); Potassium 5.2 mmol/L (3.5-5.1); Sodium 135 mmol/L (135-145); eGFR > 60.00
== END ==
LOC: OLABP 11:17
PROVIDERS: ATTENDING PHYSICIAN Family Medicine
DX: L03.116 Cellulitis of left lower limb (principal); E78.5 Hyperlipidemia, unspecified; I10 Essential (primary) hypertension; I87.2 Venous insufficiency (chronic) (peripheral); L95.9 Vasculitis limited to the skin, unspecified; M54.50 Low back pain, unspecified; M81.0 Age-related osteoporosis without current pathological fracture
CPT/HCPCS: 36415; 80048; 85025

== ENCOUNTER → 2025-07-22 10:24 | Outpatient (REF) | payer OTHER, SELFPAY ==
[2025-07-22 10:31] LABS: Hematocrit 34.7 % (37.0-47.0); Hemoglobin 11.3 g/dL (12.0-16.0); Mean Corp Hgb Conc. 32.6 g/dL (33.0-37.0); Mean Corpuscular Volume 101.8 fL (81.0-99.0); Nucleated Red Blood Cells % 0 %; Platelet Count 255 10^3/uL (130-400); Red Cell Dist. Width 12.7 % (11.5-14.5)
== END ==
LOC: OLABP 10:24
PROVIDERS: ATTENDING PHYSICIAN Family Medicine
DX: I10 Essential (primary) hypertension (principal); I87.2 Venous insufficiency (chronic) (peripheral); L95.9 Vasculitis limited to the skin, unspecified; M54.50 Low back pain, unspecified; M81.0 Age-related osteoporosis without current pathological fracture; L03.116 Cellulitis of left lower limb
CPT/HCPCS: 36415; 85025

== ENCOUNTER → 2025-08-26 14:40 | Outpatient (REF) | payer OTHER, SELFPAY | LOC: WOUND 14:40 | PROVIDERS: ATTENDING PHYSICIAN Surgery; FAMILY PHYSICIAN Family Medicine | DX: L97.222 Non-pressure chronic ulcer of left calf with fat layer exposed (principal); L88 Pyoderma gangrenosum; I77.6 Arteritis, unspecified; I87.2 Venous insufficiency (chronic) (peripheral); I87.8 Other specified disorders of veins; Z79.1 Long term (current) use of non-steroidal anti-inflammatories (NSAID) | CPT/HCPCS: 11043; 97605 ==

== ENCOUNTER 2025-09-09 12:26 | Outpatient (REF) | payer OTHER, SELFPAY | END 2025-09-09 23:59 | disposition home or self-care (01) | LOC: WOUND 12:26 | PROVIDERS: ATTENDING PHYSICIAN Surgery; FAMILY PHYSICIAN Family Medicine | DX: L97.222 Non-pressure chronic ulcer of left calf with fat layer exposed (principal); L88 Pyoderma gangrenosum; I77.6 Arteritis, unspecified; I87.2 Venous insufficiency (chronic) (peripheral); I87.8 Other specified disorders of veins; Z79.1 Long term (current) use of non-steroidal anti-inflammatories (NSAID) | CPT/HCPCS: 99215 ==

== ENCOUNTER 2025-09-09 18:44 | Inpatient (IN) | payer OTHER, SELFPAY ==
[2025-09-09 15:34] VITALS: BP 144/75
[2025-09-09 16:04] LABS: Hematocrit 35.3 % (37.0-47.0); Hemoglobin 11.3 g/dL (12.0-16.0); Mean Corp Hgb Conc. 32.0 g/dL (33.0-37.0); Mean Corpuscular Volume 102.0 fL (81.0-99.0); Nucleated Red Blood Cells % 0 %; Platelet Count 275 10^3/uL (130-400); Red Cell Dist. Width 12.3 % (11.5-14.5)
[2025-09-09 16:19] LABS: ALT (SGPT) < 10 U/L (0-35); AST (SGOT) 17 U/L (14-36); Albumin 3.9 g/dl (3.5-5.0); Alkaline Phosphatase 47 U/L (38-126); Blood Urea Nitrogen 31 mg/dl (7-17); Calcium 9.6 mg/dl (8.4-10.2); Carbon Dioxide 27 mmol/L (22-30); Chloride 102 mmol/L (98-107); Glucose 97 mg/dl (70-99); Potassium 4.3 mmol/L (3.5-5.1); Sodium 134 mmol/L (135-145); Total Protein 7.3 g/dl (6.3-8.2); eGFR > 60.00
--- NOTE | 2025-09-09 16:50 | ED.GENMED ---
History of Present Illness
<Radu Anderson PA-C - Last Filed: 09/09/25 23:26>
General
Chief Complaint: Wound Check/Suture Removal
Time Seen by Provider: 09/09/25 16:27
History of Present Illness
History of Present Illness:
80-year-old female presents to the emergency department upon referral from the [facility] for evaluation of a nonhealing wound to the left posterior lower leg. Has a prior biopsy results showing Leukoclastic vasculitis. She was admitted to
[facility] for associated cellulitis and underwent wound debridement with wound VAC placement in July. She denies any fevers or chills.
Past History
<Radu Anderson PA-C - Last Filed: 09/09/25 23:26>
Past History
ED Past Medical History: Other (bladder prolapse)
ED Past Surgical History: None
Social History
Tobacco: Non-smoker
Alcohol: None
Drug: None
Personal:
Living: with family
Employment: Not employed
Review of Systems
<Radu Anderson PA-C - Last Filed: 09/09/25 23:26>
Review of Systems
Allergies reviewed?: Yes
All Other Systems: ROS reviewed and negative except as documented in HPI and ROS
Phy Exam
<Radu Anderson PA-C - Last Filed: 09/09/25 23:26>
Physical Exam
Physical Exam:
GEN: Well appearing, NAD, WDWN
HEENT: Oral mucosa moist, no scleral icterus
Cardiac: Regular rate
Lung: No respiratory distress, no tachypnea
MSK: No gross deformity or injuries
Skin: Good color, no pallor or jaundice, no rashes, large necrotic wound with malodor to the left lower leg posteriorly, no significant surrounding erythema, diffuse edema to the lower extremity
Neuro: AO x3, moves all extremities freely
Psych: Calm, cooperative
Course
<Radu Anderson PA-C - Last Filed: 09/09/25 23:26>
Orders/Labs/Results
Orders:
Orders
09/09/25 Dinner
Regular
At Your Request: Limited Participation
Regular
At Your Request: Full Participation
09/09/25 15:39
Complete Blood Count/With Diff Urgent
Comprehensive Metabolic Panel Urgent
09/09/25 18:01
Admit/Transfer Patient As Directed
Co-Sign Provider:
Level of Care: Inpatient admission
Assign to:: Medical/Surgical
Physician / Group: scarlett franco
Diagnosis: LLE necrotic wound
Reason for Hospitalization: LLE necrotic wound
Expected length of stay greater than two midnights?: Yes
ELOS- Estimated Length of Stay in days: 3
I certify the patient meets the requirements for IP care: Yes
Code Status As Directed
Resuscitation Status: Full Code
09/09/25 18:05
PRN Pain Medication Management As Directed
May give lesser potent ordered pain med per pt: Yes
preference::
Protocol:: Medication orders for pain may be administered in a
manner that supports deferring to patient preference
when the pt is:
- Requesting an ordered lesser potent pain medication.
Least to most potent pain medications are defined
as: acetaminophen < NSAID < tramadol < opioids
(morphine, oxycodone, hydromorphone).
- Requesting a lesser dose of the same medication IF
ORDERED.
- Requesting a less intrusive route of administration
if both routes are prescribed by the provider (PO <
IV).
09/09/25 18:10
VANCOMYCIN Pharmacy to Dose [VANCOCIN Pharmacy to Dose] 1 each Pharmacy To Prepare [Call Pharmacy To Prepare] 0 ml IV PER PROTOCOL
09/09/25 20:11
Acetaminophen [Tylenol] 650 mg PO Q4HPRN PRN
09/09/25 21:45
Acetaminophen [Tylenol] 650 mg PO Q6HPRN PRN MILD PAIN
Bisacodyl [Dulcolax] 10 mg RECTAL [id number] PRN
Carvedilol [Coreg] 12.5 mg PO BID
Docusate W/Senna [Senokot-S] 1 tablet PO BIDPRN PRN
Heparin 5,000 units SC Q12
Oxycodone [Roxicodone] 5 mg PO Q4HPRN PRN moderate pain
Polyethylene Glycol Powder [Miralax] 17 grams PO DAILYPRN PRN
09/09/25 21:45
Activity As Directed
Activity Level: As Tolerated
Vital Signs As Directed
Frequency: Per unit guidelines
Pt Eval And Treat Routine
Activity Level: As Tolerated
DX Deep Vein Thrombosis Video Routine
09/10/25 06:00
Complete Blood Count/With Diff IN AM
Comprehensive Metabolic Panel IN AM
09/11/25 06:00
Complete Blood Count/With Diff IN AM
Comprehensive Metabolic Panel IN AM
09/12/25 06:00
Complete Blood Count/With Diff IN AM
Comprehensive Metabolic Panel IN AM
Abnormal Lab Results
09/09/25
15:39
RBC 3.46 L 10^6/uL
(4.20-5.40)
Hgb 11.3 L g/dL
(12.0-16.0)
Hct 35.3 L %
(37.0-47.0)
MCV 102.0 H fL
(81.0-99.0)
MCH 32.7 H pg
(27.0-31.0)
MCHC 32.0 L g/dL
(33.0-37.0)
Absolute Neuts (auto) 6.9 H 10^3/uL
(1.4-6.5)
Absolute Monos (auto) 1.2 H 10^3/uL
(0.1-0.6)
Monocytes % 11.6 H %
(1.7-9.3)
Sodium 134 L mmol/L
(135-145)
BUN 31 H mg/dl
(7-17)
09/09/25 15:39
09/09/25 15:39
Vital Signs
Initial and Last Documented VS:
Initial Vital Signs
Temp Pulse Resp BP Pulse Ox
98.1 F 86 18 144/75 95
09/09/25 15:34 09/09/25 15:34 09/09/25 15:34 09/09/25 15:34 09/09/25 15:34
Last Documented Vital Signs
Temp Pulse Resp BP Pulse Ox
98.8 F 91 18 126/77 96
09/09/25 21:59 09/09/25 22:44 09/09/25 21:59 09/09/25 22:44 09/09/25 23:04
Gonzalolt;Shukri Christianson, - Last Filed: 09/09/25 20:44>
Orders/Labs/Results
Orders:
Orders
09/09/25 Dinner
Regular
At Your Request: Limited Participation
Regular
At Your Request: Full Participation
09/09/25 15:39
Complete Blood Count/With Diff Urgent
Comprehensive Metabolic Panel Urgent
09/09/25 18:01
Admit/Transfer Patient As Directed
Co-Sign Provider:
Level of Care: Inpatient admission
Assign to:: Medical/Surgical
Physician / Group: scarlett franco
Diagnosis: LLE necrotic wound
Reason for Hospitalization: LLE necrotic wound
Expected length of stay greater than two midnights?: Yes
ELOS- Estimated Length of Stay in days: 3
I certify the patient meets the requirements for IP care: Yes
Code Status As Directed
Resuscitation Status: Full Code
09/09/25 18:05
PRN Pain Medication Management As Directed
May give lesser potent ordered pain med per pt: Yes
preference::
Protocol:: Medication orders for pain may be administered in a
manner that supports deferring to patient preference
when the pt is:
- Requesting an ordered lesser potent pain medication.
Least to most potent pain medications are defined
as: acetaminophen < NSAID < tramadol < opioids
(morphine, oxycodone, hydromorphone).
- Requesting a lesser dose of the same medication IF
ORDERED.
- Requesting a less intrusive route of administration
if both routes are prescribed by the provider (PO <
IV).
09/09/25 18:10
VANCOMYCIN Pharmacy to Dose [VANCOCIN Pharmacy to Dose] 1 each Pharmacy To Prepare [Call Pharmacy To Prepare] 0 ml IV PER PROTOCOL
09/09/25 20:11
Acetaminophen [Tylenol] 650 mg PO Q4HPRN PRN
09/09/25 21:45
Acetaminophen [Tylenol] 650 mg PO Q6HPRN PRN MILD PAIN
Bisacodyl [Dulcolax] 10 mg RECTAL [id number] PRN
Carvedilol [Coreg] 12.5 mg PO BID
Docusate W/Senna [Senokot-S] 1 tablet PO BIDPRN PRN
Heparin 5,000 units SC Q12
Oxycodone [Roxicodone] 5 mg PO Q4HPRN PRN moderate pain
Polyethylene Glycol Powder [Miralax] 17 grams PO DAILYPRN PRN
09/09/25 21:45
Activity As Directed
Activity Level: As Tolerated
Vital Signs As Directed
Frequency: Per unit guidelines
Pt Eval And Treat Routine
Activity Level: As Tolerated
DX Deep Vein Thrombosis Video Routine
09/10/25 06:00
Complete Blood Count/With Diff IN AM
Comprehensive Metabolic Panel IN AM
09/11/25 06:00
Complete Blood Count/With Diff IN AM
Comprehensive Metabolic Panel IN AM
09/12/25 06:00
Complete Blood Count/With Diff IN AM
Comprehensive Metabolic Panel IN AM
Abnormal Lab Results
09/09/25
15:39
RBC 3.46 L 10^6/uL
(4.20-5.40)
Hgb 11.3 L g/dL
(12.0-16.0)
Hct 35.3 L %
(37.0-47.0)
MCV 102.0 H fL
(81.0-99.0)
MCH 32.7 H pg
(27.0-31.0)
MCHC 32.0 L g/dL
(33.0-37.0)
Absolute Neuts (auto) 6.9 H 10^3/uL
(1.4-6.5)
Absolute Monos (auto) 1.2 H 10^3/uL
(0.1-0.6)
Monocytes % 11.6 H %
(1.7-9.3)
Sodium 134 L mmol/L
(135-145)
BUN 31 H mg/dl
(7-17)
09/09/25 15:39
09/09/25 15:39
Vital Signs
Initial and Last Documented VS:
Initial Vital Signs
Temp Pulse Resp BP Pulse Ox
98.1 F 86 18 144/75 95
09/09/25 15:34 09/09/25 15:34 09/09/25 15:34 09/09/25 15:34 09/09/25 15:34
Last Documented Vital Signs
Temp Pulse Resp BP Pulse Ox
98.8 F 91 18 126/77 96
09/09/25 21:59 09/09/25 22:44 09/09/25 21:59 09/09/25 22:44 09/09/25 23:04
<Radu Anderson PA-C - Last Filed: 09/09/25 23:26>
MDM/Problems Addressed
MDM/Problems Addressed:
Discussed case with Dr. Soares from vascular, will see in consultation tomorrow with plans for debridement tomorrow
<Radu Anderson PA-C - Last Filed: 09/09/25 23:26>
*Pulse Oximetry
SaO2: 95
Oxygen Mode of Delivery: Room air
Patient hypoxic: no
*Critical Care Note
Total Time (30-74mins, 75-104mins- exclusive of procedures): Not Applicable
ED Attending Note
<Radu Anderson PA-C - Last Filed: 09/09/25 23:26>
-
Portions of this chart may have been created with voice recognition software.� Occasional wrong word or��sound alike� substitutions may have occurred due to the inherent limitations of voice recognition software.
<Shukri Christianson DO - Last Filed: 09/09/25 20:44>
ED Attending Note
Patient seen and examined by attending physician: Yes
I performed the substantive portion of visit, reviewed & personally made and approve the management plan that is documented in note by myself or BETHANY.: Yes
ED Attending Note:
I evaluated the patient bedside. White count top normal at 10.7. Vital signs not consistent with sepsis. CAMRON did speak to Dr. Soares earlier with plan for debridement tomorrow with Dr. Soares.
Discharge Plan
Departure
Patient Disposition: Admit
Date of Disposition: 09/09/25
Time of Disposition: 17:33
Presentation/result/management discussed w/ accepting MD/DO: Hospitalist
Discharge Problem:
Vasculitis, Leg wound, left
Interventions
Interventions:
*Risk Screen - Suicide Last Done: 09/09/25 15:34
*General Assessment Last Done: 09/09/25 15:34
*Neglect/Abuse Screening Last Done: 09/09/25 15:34
*ED- Fall Risk Assessment Last Done: 09/09/25 21:39
*ED COVID-19 Vaccine History Last Done: 09/09/25 18:35
*ED Influenza Vaccine History Last Done: 09/09/25 18:35
*Nursing Disposition Last Done: 09/09/25 21:39
ED-Skin Assessment Last Done: 09/09/25 18:57
Discharge Date and Time
Discharge Date/Time: 09/09/25 21:40
--- NOTE | 2025-09-09 17:43 | HPS.HSE ---
Family Physician
-
Family Physician: Jarrell Grimes, DO
Chief Complaint
-
Necrotic left lower extremity wound
History of Present Illness
80-year-old female sent from wound care center for evaluation of nonhealing wound to left posterior leg but is necrotic. She denies fever, chills, headache, dizziness, chest pain, palpitations, cough, shortness breath, abdominal pain, nausea,
vomiting, diarrhea, urinary symptoms. The patient reports while in rehab during July she developed a DVT to her left lower extremity was placed on Eliquis. She is unable to bear weight on her left lower extremity due to shortened Achilles
tendon and therefore is in a wheelchair. She did take a dose of Eliquis this morning 09/09/2025
The patient had a recent admission 07/09 - 07/17/2025 for left lower extremity wound with biopsy showing leukocytoclastic vasculitis. She was evaluated by vascular surgery. ABIs showed no significant stenosis. She had local debridement and wound
VAC placed with follow-up care at the wound care center.
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
Medical History
Past Medical History
Past Medical History: Reports Other
Additional Past Medical History:
DVT left lower extremity
Chronic Venous Insufficiency
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
Hypertension
Osteoporosis
Past Surgical History: Reports Other
Additional Past Surgical History:
RLE EVLT (2023)
Social History
Tobacco: Non-smoker
Alcohol: None
Drug: None
Living: With Family
Employment: Retired
Family History
Family History: Not pertinent
Allergies / Home Medications
Allergies reflects when Allergies were last updated in [facility].
Home Medications with original date entered in [facility]
Allergy/Medication List:
Allergies
Allergy/AdvReac Type Severity Reaction Status Date / Time
adhesive Allergy Intermediate Rash Verified 09/09/25 15:33
Home Medications
acetaminophen 325 mg tablet (Tylenol) 650 mg PO Q6HPRN PRN MILD PAIN 07/09/25
raloxifene 60 mg tablet 60 mg PO DAILY Cancer 07/09/25
oxycodone 5 mg tablet 5 mg PO Q4HPRN PRN moderate pain #10 tabs 07/17/25
apixaban 5 mg tablet (Eliquis) 5 mg PO BID Blood Clot Prevention/Tx 09/09/25
carvedilol 12.5 mg tablet 12.5 mg PO BID Heart Disease/Condition 09/09/25
docusate sodium 100 mg capsule (Colace) 100 mg PO DAILYPRN PRN CONSTIPATION 09/09/25
Review of Systems
-
History Source: Patient
A 12 point ROS was completed and negative except as noted: Yes
Constitutional: Denies Fever or Chills
EENT: Denies Sore Throat or Runny Nose
Respiratory: Denies Cough or Trouble Breathing
Cardiac: Denies Chest Pain or Syncope
Abdomen/GI: Denies Abdominal Pain, Nausea, Vomiting, Diarrhea or Constipated
: Denies Dysuria, Frequency, Flank Pain or Incontinence
Musculoskeletal: Denies Joint Pain or Edema
Skin: Reports Other (Chronic left lower extremity posterior wound foul-smelling with chronic tendon exposure and foot and slight chronic dorsiflexion); Denies Itching or Rash
Neurological: Denies Dizzy or Headache
Endocrine: Reports No Symptoms
Hematologic/Lymphatic: Reports No Symptoms
Psych: Reports Calm
Physical Exam
Vital Signs
Vital Signs
Temp Pulse Resp BP Pulse Ox
98.1 F 86 18 144/75 95
09/09/25 15:34 09/09/25 15:34 09/09/25 15:34 09/09/25 15:34 09/09/25 16:53
Physical Exam
General: Comfortable and Conversant
HEENT: NormoCephalic, Anicteric, PERRLA, [place] Conjunctivae and No Ptosis
Respiratory: Clear; No Wheezes, Rales or Rhonchi
Cardiac: S1/S2 and Regular Rhythm; No Murmur, Rub or Gallop
Breast: Deferred by me
GI: Soft, Non Tender, Non Distended and Normal Bowel Sounds
Rectal: Deferred by Provider
Genito-urinary: Deferred by me
Musculoskeletal: No Clubbing, No Cyanosis, No Edema and Other (Chronic left lower extremity posterior wound foul-smelling with chronic tendon exposure and foot and slight chronic dorsiflexion)
Skin: Warm, Dry and Other (Chronic left lower extremity posterior wound foul-smelling with chronic tendon exposure and foot and slight chronic dorsiflexion)
Neuro: AO x 3 and No Sensory Deficits; No Slurred Speech, Facial Droop, Tremors or Sedated
Psych: Calm
Laboratory Results
-
09/09/25 15:39
09/09/25 15:39
Laboratory Results
Total Bilirubin 0.5 mg/dl (0.2-1.3) 09/09/25 15:39
AST 17 U/L (14-36) 09/09/25 15:39
ALT < 10 U/L (0-35) 09/09/25 15:39
Alkaline Phosphatase 47 U/L (38-126) 09/09/25 15:39
Data Reviewed
-
Lab Data: Labs Reviewed by me
Impression/Plan
-
Impression/plan:
Admit to [facility]
#Necrotic left lower extremity wound
#History of leukocytoclasic vasculitis with superimposed infection 07/09/2025
#Chronic venous insufficiency
She was treated until 08/10 with IV vancomycin/cefepime then Keflex x 3 days post debridement of left heel 07/12/2025 also started on Prednisone and tapered over 7 to 10 days in July
- Consult Dr. Soares for debridement
- May continue Tylenol and oxycodone as needed
YAZMIN left lower extremity July 2025:
The left lower extremity arterial duplex examination was personally reviewed.
She has multiphasic waveforms from the common femoral artery through the popliteal artery with no focal velocity elevations
to suggest significant stenosis. She has monophasic waveforms in the posterior tibial artery and dorsalis pedis artery.
#Left lower extremity DVT Dx July 2025�provoked developed while in rehab
#unable to bear weight on left leg due to shortened tendon
Hold Eliquis 5 mg twice daily last dose was 09/09/2025 in a.m.
#Macrocytic anemia
Hgb 11.3, MCV 102
-Check B12, folate, iron panel
#HTN
Continue Coreg 12.5 mg twice daily
#Osteoporosis
Hold raloxifene 60 mg daily
DVT prophylaxis
Hold Eliquis 5 mg twice daily
Full code
--- NOTE | 2025-09-09 17:44 | W.PN.UPDATE ---
Update Note
Progress Note Update
This note serves as an addendum to the H&P by public speaking instructor Sae Lovett
HPI�
80F
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
seen at ER:
- she presents from wound care center due to worsening unhealing left ankle
- was told that she would need to have a debridement performed on the wound.
Recent LLEX DVT at Rehab and just started on Eliquis
- Last dose was this AM
Recent admission 07/09 - 07/17/2025 for left lower extremity wound with biopsy showing leukocytoclastic vasculitis.
She was evaluated by vascular surgery. ABIs showed no significant stenosis. She had local debridement and wound VAC placed with follow-up care at the wound care center.
ROS
denies fever, chills
The patient had a
Relevant VS
Temp Pulse Resp BP Pulse Ox
98.1 F 86 18 144/75 95
09/09/25 15:34 09/09/25 15:34 09/09/25 15:34 09/09/25 15:34 09/09/25 16:53
PE
Gen: No toxic
HEENT: NAD
Neck: supple
Lungs: CTA
Cor: RRR S1 S2
Abdomen:�soft , NT , NRT
[employer]ER[employer] HELPER: AAO3
MS: Lt Sanjeev is under dressing
Psych: Nl mood and affect
Relevant Data�
09/09/25
15:39
WBC 10.7
Hgb 11.3 L
Plt Count 275
Sodium 134 L
Creatinine 0.9
eGFR > 60.00
Total Bilirubin 0.5
AST 17
ALT < 10
07/06/35 US YAZMIN/TBI Only MARLYN
1. Left YAZMIN was not obtained due to lower extremity wound.
Left toe brachial index measures 0.55 (normal greater than 0.7), compared to 0.87 on prior study dated 06/12/2021. Multiphasic waveforms at the level of the left ankle.
2. Right YAZMIN 1.13, compared to 1.08 on prior.
Right toe brachial index 0.56. Multiphasic waveforms at the level of the ankle.
Last hospitalist admission:07/09/25 - 07/17/2025 DXs: left lower extremity wound with biopsy showing leukocytoclastic vasculitis.
ASSESSMENT & PLAN
Pending Rx reconciliation
Necrotic LLEx wound with Chronic venous insufficiency
HX leukocytoclastic vasculitis with superimposed infection per biopsy - S/P Tx IV vancomycin/cefepime till 08/10 then Keflex x 3 days
- 07/12/25: post debridement of L heel- Tx with Prednisone and tapered over 7 to 10 days in July
- start IV Vanco and IV CFP
- Hold Eliquis ( last dose of Eliquis this AM)
- Vascular consult Dr. Soares for debridement
Recent LLEX DVT at Rehab and just started on Eliquis
- Hold Eliquis for this evening in case wound debridement by Vascular in AM
Macrocytic anemia
Hgb 11.3, MCV 102
- Pending B12, folate, iron panel
pHTN
- on Coreg 12.5 mg twice daily
Osteoporosis
- Hold Raloxifene
DVT Px: Eliquis
Full code
IP MS
[2025-09-09 18:21] VITALS: BMI 20.3
[2025-09-09] MEDS: MAXIPIME 1000 MG IV (19:19)
[2025-09-09] MEDS: VANCOCIN 275 MG IV (19:23)
[2025-09-09] MEDS: ROXICODONE 5 MG PO (20:10)
[2025-09-09] MEDS: TYLENOL 650 MG PO (20:16)
[2025-09-09 21:59] VITALS: BP 126/77; BMI 19.2
--- NOTE | 2025-09-09 22:34 | PHA.VAN.IN ---
Assessment
- Assessment
Renal Function: Appears similar to baseline
Concomitant Antimicrobials: CEFEPIME
Plan
- Plan
Initial / Loading Dose: VANCOMYCIN 1250 MG IV ~ 1920
Maintenance Regimen: Dosing by random level.
Monitoring: A random level is scheduled on 09/10 w. am labs. Pharmacy will follow
Pharmacokinetics Vancomycin I
- -
Patient Age: 80
Patient Sex: Female
Vancomycin Day #: 1
Indication: Skin And Soft Tissue
Requesting Provider: Rachell BLACKBURN
Height / Weight:
Height 5 ft 2 in
Actual Weight 47.673 kg
Pertinent Past Medical History: Necrotic left lower extremity wound.
- Vital Signs / Lab Results
Temp Pulse Resp BP Pulse Ox
98.8 F 91 18 126/77 96
09/09/25 21:59 09/09/25 21:59 09/09/25 21:59 09/09/25 21:59 09/09/25 21:59
Lab Results - Hematology
09/09/25
15:39
WBC 10.7
Lab Results - Chemistry
09/09/25
15:39
BUN 31 H
Creatinine 0.9
Albumin 3.9
[2025-09-09] MEDS: HEPARIN 5000 UNITS SC (22:43)
[2025-09-09] MEDS: COREG 12.5 MG PO (22:44)
[2025-09-09 23:52] VITALS: BP 146/73
--- NOTE | 2025-09-10 02:34 | PTCARENOTE ---
09/09 2140> Received pt from ED via stretcher w/ belongings. Medsurg orders. VSS. AAOx3, OHOGAMIUT. PMH and medications reviewed by this RN and pt. LLE wound unwrapped and redressed. Pt's Eliquis on hold for possibly debridement with Dr. Soares 09/10. Plan
of care reviewed. Call betancur within reach.
[2025-09-10] MEDS: ROXICODONE 5 MG PO ×4 (03:55→18:07)
[2025-09-10 06:20] LABS: Hematocrit 34.0 % (37.0-47.0); Hemoglobin 11.1 g/dL (12.0-16.0); Mean Corp Hgb Conc. 32.6 g/dL (33.0-37.0); Mean Corpuscular Volume 101.2 fL (81.0-99.0); Nucleated Red Blood Cells % 0 %; Platelet Count 256 10^3/uL (130-400); Red Cell Dist. Width 12.3 % (11.5-14.5)
[2025-09-10 07:08] LABS: ALT (SGPT) < 10 U/L (0-35); AST (SGOT) 15 U/L (14-36); Albumin 3.4 g/dl (3.5-5.0); Alkaline Phosphatase 44 U/L (38-126); Blood Urea Nitrogen 21 mg/dl (7-17); Calcium 9.3 mg/dl (8.4-10.2); Carbon Dioxide 28 mmol/L (22-30); Chloride 103 mmol/L (98-107); Estimated Creatinine Clearance 41 ml/min; Glucose 99 mg/dl (70-99); Potassium 4.6 mmol/L (3.5-5.1); Sodium 134 mmol/L (135-145); Total Protein 6.4 g/dl (6.3-8.2); eGFR > 60.00
[2025-09-10 07:29] VITALS: BP 130/92
--- NOTE | 2025-09-10 08:19 | VNURNOTE ---
Chart reviewed. Patient is current with [facility]. Will continue to follow hospital course and DC plans.
--- NOTE | 2025-09-10 08:19 | PHA.VAN.FU ---
Vancomycin Assessment / Plan
- Assessment
Renal Function: Stable
WBC's are: WNL
In the past 24 hrs, patient has been: Afebrile
Concomitant Antimicrobials: cefepime
- Assessment - Therapeutic Drug Monitoring
Random Level: 13.4 - drawn ~10.5 H after 1250mg loading dose
- Dosing Plan
Dosing by Level: Re-dose today (Vanc 750mg)
Vanc 750mg Q24H predicts AUC 568, peak 35.6, trough 14.7
500mg Q24H predicts subtherapeutic AUC 379
Will re-dose with 750mg today and follow trend before scheduling dosing
- Monitoring Plan
Random Level: 09/11 06
- Follow Up
Pharmacy will continue to follow.
Vancomycin Follow UP
- -
Patient Age: 80
Patient Sex: Female
Vancomycin Day #: 2
Indication: Skin And Soft Tissue
Requesting Provider: Rachell BLACKBURN
Pertinent Antimicrobial Allergies:
no pertinent antibiotic allergies
Height / Weight:
Height 5 ft 2 in
Actual Weight 47.673 kg
IBW in k
Pertinent Past Medical History: BMI ~19
- Vital Signs / Lab Results
Temp Pulse Resp BP Pulse Ox
98.8 F 104 18 130/92 97
09/10/25 07:29 09/10/25 07:29 09/10/25 07:29 09/10/25 07:29 09/10/25 07:29
Lab Results - Hematology
09/09/25 09/10/25
15:39 05:47
WBC 10.7 9.0
Lab Results - Chemistry
09/09/25 09/10/25
15:39 05:47
BUN 31 H 21 H
Creatinine 0.9 0.8
Estimated Creat Clear 41
Albumin 3.9 3.4 L
Therapeutic Drug Monitoring
Random Vancomycin 13.4 ug/ml 09/10/25 05:47
[2025-09-10] MEDS: HEPARIN 5000 UNITS SC ×2 (08:25→20:32)
[2025-09-10] MEDS: MAXIPIME 1000 MG IV (08:26)
[2025-09-10] MEDS: COREG 12.5 MG PO ×2 (08:26→20:31)
[2025-09-10] MEDS: STERILE WATER FOR INJECTION 10 ML IV (08:28)
[2025-09-10] MEDS: VISBIOME 1 CAP PO (10:54)
[2025-09-10] MEDS: VANCOCIN 150 IV (11:03)
[2025-09-10] MEDS: TYLENOL 650 MG PO ×2 (11:10→23:13)
--- NOTE | 2025-09-10 12:41 | WOUNDNOTE ---
L LATERAL POSTERIOR LOWER LEG
--- NOTE | 2025-09-10 12:41 | WOUNDNOTE ---
L MEDIAL POSTERIOR LOWER LEG
--- NOTE | 2025-09-10 12:41 | WOUNDNOTE ---
L POSTERIOR LOWER LEG
--- NOTE | 2025-09-10 12:50 | WOUNDNOTE ---
NADYA RN note: Patient admitted with left lower leg vasculitic ulcer.
See H&P for complete history. Sent to ER from wound center.
PMH: Osteoporosis, HTN, vasculitis, DVT and venous insufficiency.
Wound Location and type/assessment: Patient known to service, last seen 07/16/25 for L leg vasculitis wound. Last admission wound debrided and wound vac used. Now admitted with same vasculitic wound to left lower leg. 3/4 with soft tolentino and black
eschar, pink remainder, foul odor. Very painful to touch. Assessed along with nurse Shanelle and Dr. Paulson. Patient turns self in bed, heels and sacrum intact. L leg elevated on pillow.
Appetite: Fair, encourage protein in diet.
Pressure redistribution devices in place: She is on a Versa Care Air bed, encouraged turning and L leg elevation.
Plan: Plan is local wound care with adaptic and dry dressing until further orders or plan from vascular consult. Confirmed wound care with Dr. Paulson. Updated nurse, care plan and will follow as needed.
Note to case management of equipment requested for discharge: TBD
Recommend follow up at wound care center upon discharge.
--- NOTE | 2025-09-10 13:39 | W.PN.HOSP.TC ---
Today's Communication/Plan
-
Vascular surgery consult
ID consult
PT/OT
Assessment / Plan
Assessment / Plan
Gen-AAOx3, NAD
HEENT-NC, AT, anicteric, clear oral mm
Neck-supple
CV-reg, no M, +S1/S2
Lungs-clear B/L
Abd-soft, NT, ND
Ext-no edema
Musculoskeletal-no cyanosis, clubbing
Skin-warm and dry. Left lower leg wound on posterior leg with granulation tissue and foul odor, surrounding erythema
Neuro-grossly non-focal
Psych-calm, cooperative
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 Treated with a short course of steroids. Antibiotics administered during last hospitalization in June. Discharged with a wound VAC. Unclear at
this point in time whether we are dealing with ongoing infection versus inflammation. No signs or symptoms of sepsis.
Seen in the wound care center by Dr. Sanchez, referred back to the hospital for nonhealing wound.
Seen by rheumatology, Dr. Nieto, in the office. Details unclear.
Currently getting systemic broad-spectrum antibiotics.
Awaiting vascular surgery and ID input.
CT angiogram with lower extremity runoff completed this morning, awaiting vascular surgery interpretation.
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
Spoke with physiatry, Dr. Arana. He [facility] with consideration for Dynasplint.
Hyponatremia - mild, 134. Monitor for now.
Subacute left lower extremity DVT -diagnosed a few weeks ago in rehab. Was on Eliquis until admission, evening of 09/09. Eliquis held by admitting team in anticipation of any potential procedures that may be needed. Awaiting vascular surgery
input. Currently on subcutaneous heparin at prophylactic doses only.
Essential hypertension -stable.
Osteoporosis
Chronic anemia -macrocytic. Hemoglobin at baseline.
Check anemia labs.
Full code
Anticipated Discharge: > 48 hours
Subjective/Interval History
-
Date of Service: September 10, 2025
Patient seen and examined, complaining of discomfort over the wound on the left leg.
Objective Data
-
Labs:
Laboratory Results
09/10/25
05:47
WBC 9.0
Hgb 11.1 L
Hct 34.0 L
Plt Count 256
Sodium 134 L
Potassium 4.6
Chloride 103
Carbon Dioxide 28
BUN 21 H
Creatinine 0.8
Glucose 99
Calcium 9.3
Total Bilirubin 0.3
AST 15
ALT < 10
Alkaline Phosphatase 44
Vital Signs:
Vital Signs
Temp Pulse Resp BP Pulse Ox
98.8 F 104 18 130/92 97
09/10/25 07:29 09/10/25 08:26 09/10/25 07:29 09/10/25 08:26 09/10/25 07:29
I&O
09/09/25 09/10/25 09/11/25
06:59 06:59 06:59
Intake Total 120 / 120
Balance 120 / 120
Review of Systems
-
History Source: Patient
All other systems: Reviewed and negative
[2025-09-10] MEDS: ZOSYN 50 IV ×3 (13:54→23:08)
--- NOTE | 2025-09-10 15:39 | CON.SURG ---
Surgical Consultation
-
Chief Complaint
-
Necrotic left lower extremity wound
History of Present Illness
80-year-old female sent from wound care center for evaluation of nonhealing wound to left posterior leg but is necrotic. She denies fever, chills, headache, dizziness, chest pain, palpitations, cough, shortness breath, abdominal pain, nausea,
vomiting, diarrhea, urinary symptoms. The patient reports while in rehab during July she developed a DVT to her left lower extremity was placed on Eliquis. She is unable to bear weight on her left lower extremity due to shortened Achilles
tendon and therefore is in a wheelchair. She did take a dose of Eliquis this morning 09/09/2025
The patient had a recent admission 07/09 - 07/17/2025 for left lower extremity wound with biopsy showing leukocytoclastic vasculitis. She was evaluated by vascular surgery. ABIs showed no significant stenosis. She had local debridement and wound
VAC placed with follow-up care at the wound care center.
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
Medical History
Past Medical History
Past Medical History: Reports Other
Additional Past Medical History:
DVT left lower extremity
Chronic Venous Insufficiency
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
Hypertension
Osteoporosis
Past Surgical History: Reports Other
Additional Past Surgical History:
RLE EVLT (2023)
Social History
Tobacco: Non-smoker
Alcohol: None
Drug: None
Living: With Family
Employment: Retired
Family History
Family History: Not pertinent
Allergies / Home Medications
Allergies reflects when Allergies were last updated in [facility].
Home Medications with original date entered in [facility]
Allergy/Medication List:
Allergies
Allergy/AdvReac Type Severity Reaction Status Date / Time
adhesive Allergy Intermediate Rash Verified 09/09/25 15:33
Home Medications
acetaminophen 325 mg tablet (Tylenol) 650 mg PO Q6HPRN PRN MILD PAIN 07/09/25
raloxifene 60 mg tablet 60 mg PO DAILY Cancer 07/09/25
oxycodone 5 mg tablet 5 mg PO Q4HPRN PRN moderate pain #10 tabs 07/17/25
apixaban 5 mg tablet (Eliquis) 5 mg PO BID Blood Clot Prevention/Tx 09/09/25
carvedilol 12.5 mg tablet 12.5 mg PO BID Heart Disease/Condition 09/09/25
docusate sodium 100 mg capsule (Colace) 100 mg PO DAILYPRN PRN CONSTIPATION 09/09/25
Review of Systems
-
History Source: Patient
A 12 point ROS was completed and negative except as noted: Yes
Constitutional: Denies Fever or Chills
EENT: Denies Sore Throat or Runny Nose
Respiratory: Denies Cough or Trouble Breathing
Cardiac: Denies Chest Pain or Syncope
Abdomen/GI: Denies Abdominal Pain, Nausea, Vomiting, Diarrhea or Constipated
: Denies Dysuria, Frequency, Flank Pain or Incontinence
Musculoskeletal: Denies Joint Pain or Edema
Skin: Reports Other (Chronic left lower extremity posterior wound foul-smelling with chronic tendon exposure and foot and slight chronic dorsiflexion); Denies Itching or Rash
Neurological: Denies Dizzy or Headache
Endocrine: Reports No Symptoms
Hematologic/Lymphatic: Reports No Symptoms
Psych: Reports Calm
Physical Exam
Vital Signs
Vital Signs
Temp Pulse Resp BP Pulse Ox
98.1 F 86 18 144/75 95
09/09/25 15:34 09/09/25 15:34 09/09/25 15:34 09/09/25 15:34 09/09/25 16:53
Physical Exam
General: Comfortable and Conversant
HEENT: NormoCephalic, Anicteric, PERRLA, [place] Conjunctivae and No Ptosis
Respiratory: Clear; No Wheezes, Rales or Rhonchi
Cardiac: S1/S2 and Regular Rhythm; No Murmur, Rub or Gallop
Breast: Deferred by me
GI: Soft, Non Tender, Non Distended and Normal Bowel Sounds
Rectal: Deferred by Provider
Genito-urinary: Deferred by me
Musculoskeletal: No Clubbing, No Cyanosis, No Edema and Other (Chronic left lower extremity posterior wound foul-smelling with chronic tendon exposure and foot and slight chronic dorsiflexion)
Skin: Warm, Dry and Other (Chronic left lower extremity posterior wound foul-smelling with chronic tendon exposure and foot and slight chronic dorsiflexion)
Neuro: AO x 3 and No Sensory Deficits; No Slurred Speech, Facial Droop, Tremors or Sedated
Psych: Calm
Left lower extremity physical exam
-Left posterior calf/ankle with large fibronecrotic malodourous wound and likely exposed Achilles tendon
-Foot is warm and well perfused
-Pain on palpation of posterior calf
Laboratory Results
-
09/09/25 15:39
09/09/25 15:39
Laboratory Results
Total Bilirubin 0.5 mg/dl (0.2-1.3) 09/09/25 15:39
AST 17 U/L (14-36) 09/09/25 15:39
ALT < 10 U/L (0-35) 09/09/25 15:39
Alkaline Phosphatase 47 U/L (38-126) 09/09/25 15:39
Impression/Plan
Impression/plan:
Patient with necrotic left posterior calf/ankle fibronecrotic wound with exposed Achilles tendon from leukocytoclastic vasculitis. Patient was evaluated by vascular surgery and CTA was unimpressive.
-Plan for left Achilles tendon wound debridement with possible wound VAC vs integra skin graft
-Continue IV antibiotics and steroid per primary team
-Appreciate vascular surgery recommendations
-Strict left heel offloading, NWB to LLE
[2025-09-10 15:40] VITALS: BP 115/59
--- NOTE | 2025-09-10 15:50 | CON.VAS ---
Addendum entered and electronically signed by Jared Soares III, MD 09/10/25 17:48:
This patient was seen and examined in collaboration with ALEXEY Mayfield. I agree with the history and physical exam as well as the assessment and plan. I have the following additions:
History as detailed
Readmitted for wound care
CT angiogram images personally reviewed. There is no significant arterial occlusive disease in the left lower extremity. She has three-vessel tibial artery runoff.
I have asked podiatry to see her and evaluate the wound for additional debridement and perhaps coverage.
Signed:
Jared Soares III, MD
Vascular Surgery
[facility]
Original Note:
Consultation
Consultation Request
Date/Time Consultation Performed: 09/10/25 @ 1pm
Performing Provider: Rodger
Reason for Consultation: Nonhealing wound
Medical History
-
Chief Complaint: Nonhealing ankle wound
History of Present Illness:
80 yo female with PMH significant for DVT, venous insufficiency, leukocytoclasic vasculitis, HTN presented to the ER at the recommendation of the wound care center for debridement of the LLE wound. Pt was recently admitted 07/09-07/17 for the LLE
wound. Biopsy positive for leukocytoclastic vasculitis. Vascular workup negative for peripheral arterial disease at that time.
Vascular consult for LLE wound debridement. Pt seen at bedside this afternoon with Dr Soares.
Past Medical History
Past Medical History: Other (See above)
Past Surgical History: Other (LLE debridements)
Social History
Tobacco: Non-Smoker
Alcohol: None
Drug: None
Living: With Family
Employment: Retired
Family History
Family History: Reviewed & Not Pertinent
Allergies / Home Medications
Allergy/AdvReac Type Severity Reaction Status Date / Time
adhesive Allergy Rash Verified 09/09/25 18:13
�Medication �Instructions �Recorded �Confirmed �Type
acetaminophen 325 mg tablet 650 mg PO Q6HPRN PRN MILD PAIN 07/09/25 09/09/25 History
(Tylenol)
raloxifene 60 mg tablet 60 mg PO DAILY Cancer 07/09/25 09/09/25 History
oxycodone 5 mg tablet 5 mg PO Q4HPRN PRN moderate pain 07/17/25 09/09/25 Rx
#10 tabs
apixaban 5 mg tablet (Eliquis) 5 mg PO BID Blood Clot 09/09/25 09/09/25 History
Prevention/Tx
carvedilol 12.5 mg tablet 12.5 mg PO BID Heart 09/09/25 09/09/25 History
Disease/Condition
docusate sodium 100 mg capsule 100 mg PO DAILYPRN PRN CONSTIPATION 09/09/25 09/09/25 History
(Colace)
Review of Systems
-
History Source: Patient
All other systems: Negative unless noted
Constitutional: Reports No Symptoms
EENT: Reports No Symptoms
Respiratory: Reports No Symptoms
Cardiac: Reports No Symptoms
Vascular: Denies Leg Pain / Claudication
Abdomen/GI: Reports No Symptoms
: Reports No Symptoms
Musculoskeletal: Reports No Symptoms
Skin: Reports Other (nonhealing LLE wound)
Physical Exam
Vital Signs
Temp Pulse Resp BP Pulse Ox
98.2 F 80 16 115/59 95
09/10/25 15:40 09/10/25 15:40 09/10/25 15:40 09/10/25 15:40 09/10/25 15:40
Lab Results
09/10/25 05:47
09/10/25 05:47
Physical Exam
General: No Apparent Distress
HEENT: Normocephalic and Atraumatic
Respiratory: Non Labored Respirations
Cardiac: Negative JVD
GI: Soft and Non Tender
Musculoskeletal: No Clubbing, No Cyanosis and No Edema
Skin: Warm and Other (see wound care notes for images.)
Neuro: Awake, Alert and Oriented
Psych: Calm
Pulses: Left Dorsalis Pedis: +2 and Left Posterior Tibial: +2
Assessment / Plan
-
80 yo female with leukocytoclasic vasculitis and chronic LLE nonhealing wound
Plan:
Does not require vascular intervention at this time
Recommend Podiatry for debridement
Wound care
Data Reviewed
-
CT Scan: Discussed with Patient
--- NOTE | 2025-09-10 16:00 | CON.ID ---
Consultation
-
Date/Time Consultation Requested: 09/10/25 11:08
Date/Time Consultation Performed: 09/10/25 11:30
Requesting Provider: Dr Garcia
Performing Provider: Dr Paulson
Reason for Consultation: wound infection
Chief Complaint / Past History
Chief Complaint
left lower extremity wound
History of Present Illness
Ms Skinner is an 80 year old female with a chronic venous insufficiency wound of the LLE that began april of this year followed by Wound Care. She had a biopsy of the lesion 05/28/25 resulting with leukocytoclastic vasculitis. She reports she has
been evaluated by Dr Farris rheumatology and he did not recommend any long line teamster steroids or immunosuppressive treatment. She has previously undergone debridement of the wound 07/12/25 and placement of a wound vac - ultimately the wound vac was
discontinued due to pain and she was switched to wet to dry dressings. YAZMIN from 07/16/25 showed depressed left toe brachial index but multiphasic waveform. Since then she has continued to follow up with the outpatient wound care center and vascular
surgery. 09/03 she started wet to dry dressings with dakins, there was concern for odor. She was then seen in follow up with wound care Dr Sanchez 09/03 noting significant odor, biofilm and purulence, she was referred to the ER for debridement
and antibiotics and she is also being referred for outpatient hyperbaric oxygen therapy. She reports no fevers or chills. She reports some pain in the achilles after stretching exercises with PT but that pain is generally controlled.
Since arrival here she has been afebrile, bp stable, wbc initially 10.7 today 9.0, hgb 11.1, plt 256, no left shift, na 134, k 4.6, cr 0.8, lfts wnl, 6am vancomycin level this AM 13.4, CTA angio with run off left lower extremity less than 50%
multifocal stenoses of the left foot, right lower extremity with stenosis vs occlusion of the right anterior tibial artery. She was initially started on vancomycin and cefepime. She was seen by Dr Marroquin podiatry who is planning for achilles
tendon wound debridement and VAC vs graft
Past History
Additional Past Medical History:
DVT left lower extremity
Chronic Venous Insufficiency
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
Hypertension
Osteoporosis
Additional Past Surgical History:
as per hpi
RLE EVLT (2023)
Allergy History:
adhesive Allergy (Verified 09/09/25 18:13)
Rash
Medications Reviewed: Yes
Social History
Tobacco: Non-Smoker
Alcohol: None
Drug: None
Family History
Family History: Not Pertinent
Review of Systems
Review of Systems
Constitutional: Denies Fever or Chills
EENT: Denies Sore Throat or Runny Nose
Respiratory: Denies Cough or Trouble Breathing
Cardiac: Denies Chest Pain or Syncope
Abdomen/GI: Denies Abdominal Pain, Nausea, Vomiting, Diarrhea or Constipated
: Denies Dysuria, Frequency, Flank Pain or Incontinence
Musculoskeletal: Denies Joint Pain or Edema
Skin: Reports Other (Chronic left lower extremity posterior wound foul-smelling with chronic tendon exposure); Denies Itching or Rash
Neurological: Denies Dizzy or Headache
Endocrine: Reports No Symptoms
Hematologic/Lymphatic: Reports No Symptoms
Psych: Reports Calm
Vital Signs
Temp Pulse Resp BP Pulse Ox
98.2 F 80 16 115/59 95
09/10/25 15:40 09/10/25 15:40 09/10/25 15:40 09/10/25 15:40 09/10/25 15:40
Physical Exam
Physical Exam
Constitutional: No Acute Distress
Cardiovascular: Regular Rate and S1/S2; Negative Murmur or Rub
Pulmonary: Clear and Symmetric; Negative Wheezes, Rales or Rhonchi
Gastrointestinal: Soft, Non Tender, Non Distended and Normal Bowel Sounds
Extremities: Other (left lower extremity with large 8.5cmx9.5 cm wound half covered with eschar and slough, no odor, there is surrounding erythema of the posterior leg)
Skin: Warm and Dry; Negative Rash or Jaundice
Lab / Diagnostic Study Results
09/10/25 05:47
09/10/25 05:47
Abs Immat Gran (auto) 0.1 10^3/uL (0-0.05) H 09/10/25 05:47
Absolute Neuts (auto) 6.4 10^3/uL (1.4-6.5) 09/10/25 05:47
Absolute Lymphs (auto) 1.5 10^3/uL (1.2-3.4) 09/10/25 05:47
Absolute Monos (auto) 1.0 10^3/uL (0.1-0.6) H 09/10/25 05:47
Absolute Basos (auto) 0.0 10^3/uL (0-0.2) 09/10/25 05:47
Immature Gran % 0.6 % (0-0.5) H 09/10/25 05:47
Neutrophils % 71.2 % (42.2-75.2) 09/10/25 05:47
Lymphocytes % 16.2 % (20.5-51.1) L 09/10/25 05:47
Monocytes % 10.7 % (1.7-9.3) H 09/10/25 05:47
Eosinophils % 1.1 % (0-6) 09/10/25 05:47
Basophils % 0.2 % (0-2) 09/10/25 05:47
Microbiology Results
Micro:
09/09/25 22:29 MRSA Screen - Pending
Nose
Assessment / Plan
Chronic Wound of the Left Lower Extremity with exposed tendon
Cellulitis
- agree with plans for debridement
- wound care is following
- CTA with multifocal stenoses <50% of the left lower extremity
- continue vancomycin - appreciate pharmacy assistance with dosing
- start zosyn, stop cefepime, had a recent course of cefepime
--- NOTE | 2025-09-10 16:09 | CM ---
CM met with pt bedside
Pt resides with her spouse in a 2SH with 1STE, full flight to 2nd floor
Pt has two involved children, Polo and Lashae
Pt is typically independent with her ADLs, drives+ , no ADs
Current with [facility] and outpt wound center
Recent dc from [facility], vac has been discontinued
Pt now utilizing a WW, W/C self propel, and has a transport chair
PCP- Jarrell Curtis
Rx- Efrain
Pt planned for OR tomorrow for L ankle debridement
CM will follow for dc planning
Discharge Disposition- anticipate home with [facility]
[2025-09-10 20:31] VITALS: BP 117/75
[2025-09-10 23:33] VITALS: BP 146/66
[2025-09-11] VITALS (17 sets, daily range): BP systolic 0–198; BP diastolic 60–97
[2025-09-11] MEDS: ROXICODONE 5 MG PO ×4 (02:05→21:54)
[2025-09-11] MEDS: ZOSYN 50 IV ×3 (05:38→19:06)
[2025-09-11] MEDS: HEPARIN 5000 UNITS SC ×2 (07:28→20:40)
[2025-09-11] MEDS: COREG 12.5 MG PO ×2 (07:28→20:39)
[2025-09-11] MEDS: TYLENOL 650 MG PO ×2 (07:28→14:21)
[2025-09-11] MEDS: VISBIOME 1 CAP PO (07:28)
[2025-09-11 07:37] LABS: Hematocrit 36.6 % (37.0-47.0); Hemoglobin 11.8 g/dL (12.0-16.0); Mean Corp Hgb Conc. 32.2 g/dL (33.0-37.0); Mean Corpuscular Volume 99.7 fL (81.0-99.0); Nucleated Red Blood Cells % 0 %; Platelet Count 248 10^3/uL (130-400); Red Cell Dist. Width 12.3 % (11.5-14.5)
[2025-09-11 08:07] LABS: ALT (SGPT) < 10 U/L (0-35); AST (SGOT) 15 U/L (14-36); Albumin 3.5 g/dl (3.5-5.0); Alkaline Phosphatase 44 U/L (38-126); Blood Urea Nitrogen 16 mg/dl (7-17); Calcium 9.6 mg/dl (8.4-10.2); Carbon Dioxide 30 mmol/L (22-30); Chloride 104 mmol/L (98-107); Estimated Creatinine Clearance 41 ml/min; Glucose 107 mg/dl (70-99); Potassium 4.5 mmol/L (3.5-5.1); Sodium 137 mmol/L (135-145); Total Protein 6.7 g/dl (6.3-8.2); eGFR > 60.00
--- NOTE | 2025-09-11 08:47 | PHA.VAN.FU ---
Vancomycin Assessment / Plan
- Assessment
Renal Function: Stable
WBC's are: WNL
In the past 24 hrs, patient has been: Afebrile
Concomitant Antimicrobials: piperacillin/tazobactam
- Assessment - Therapeutic Drug Monitoring
Random Level: 11.5 - drawn ~20.5H after previous dose of 750mg
- Dosing Plan
Adjust Regimen to: Vanc 750mg Q24H - first dose now then 09/12 06
- Monitoring Plan
No level(s) ordered at this time: consider levels in next few days
- Follow Up
Pharmacy will continue to follow.
Vancomycin Follow UP
- -
Patient Age: 80
Patient Sex: Female
Vancomycin Day #: 3
Indication: Skin And Soft Tissue
Requesting Provider: Rachell BLACKBURN / Dr. Paulson
Pertinent Antimicrobial Allergies:
no pertinent antibiotic allergies
Height / Weight:
Height 5 ft 2 in
Actual Weight 47.673 kg
IBW in k
Pertinent Past Medical History: BMI ~19
- Vital Signs / Lab Results
Temp Pulse Resp BP Pulse Ox
98.4 F 85 18 173/91 96
09/11/25 07:18 09/11/25 07:18 09/11/25 07:18 09/11/25 07:18 09/11/25 07:18
Lab Results - Hematology
09/09/25 09/10/25 09/11/25
15:39 05:47 07:21
WBC 10.7 9.0 6.7
Lab Results - Chemistry
09/09/25 09/10/25 09/11/25
15:39 05:47 07:21
BUN 31 H 21 H 16
Creatinine 0.9 0.8 0.8
Estimated Creat Clear 41 41
Albumin 3.9 3.4 L 3.5
Microbiology Results
09/09/25 22:29 MRSA Screen - Final
Nose No Methicillin Resistant Staphylococcus aureus isolated.
Therapeutic Drug Monitoring
Random Vancomycin 11.5 ug/ml 09/11/25 07:21
--- NOTE | 2025-09-11 08:50 | CM ---
CM reviewed chart- pt planned for OR today for L ankle debridement
Pt is current with [facility]
CM will continue to follow for post op needs
Discharge Disposition- anticipate home with [facility]
--- NOTE | 2025-09-11 11:14 | W.PN.HOSP.TC ---
Today's Communication/Plan
-
Check anemia labs
OR today
Assessment / Plan
Assessment / Plan
Gen-AAOx3, NAD
HEENT-NC, AT, anicteric, clear oral mm
Neck-supple
CV-reg, no M, +S1/S2
Lungs-clear B/L
Abd-soft, NT, ND
Ext-no edema
Musculoskeletal-no cyanosis, clubbing
Skin-warm and dry. Left lower leg wound on posterior leg with granulation tissue and foul odor, surrounding erythema
Neuro-grossly non-focal
Psych-calm, cooperative
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 Treated with a short course of steroids. Antibiotics administered during last hospitalization in June. Discharged with a wound VAC. Unclear at
this point in time whether we are dealing with ongoing infection versus inflammation. No signs or symptoms of sepsis.
Seen in the wound care center by Dr. Sanchez, referred back to the hospital for nonhealing wound.
Seen by rheumatology, Dr. Nieto, in the office. I touched base with Dr. Nieto via [facility] text, he does not recommend further steroid use.
Currently getting systemic broad-spectrum antibiotics. Appreciate ID input.
Vascular surgery does not recommend any revascularization.
Awaiting debridement of wound today by podiatry. Currently NPO.
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
Spoke with physiatry, Dr. Arana. He recommends outpatient Goetz evaluation at [place] with consideration for Dynasplint.
Hyponatremia -improved.
Subacute left lower extremity DVT -diagnosed a few weeks ago in rehab. Was on Eliquis until admission, evening of 09/09. Eliquis held by admitting team in anticipation of any potential procedures that may be needed. Awaiting vascular surgery
input. Currently on subcutaneous heparin at prophylactic doses only.
Will resume Eliquis when cleared by Dr. Marroquin. [facility] text sent.
Essential hypertension -stable.
Osteoporosis
Chronic anemia -macrocytic. Hemoglobin at baseline.
Check anemia labs.
Full code
Anticipated Discharge: > 48 hours
Subjective/Interval History
-
Date of Service: September 11, 2025
Patient seen and examined. No new complaints.
Objective Data
-
Labs:
Laboratory Results
09/11/25
07:21
WBC 6.7
Hgb 11.8 L
Hct 36.6 L
Plt Count 248
Sodium 137
Potassium 4.5
Chloride 104
Carbon Dioxide 30
BUN 16
Creatinine 0.8
Glucose 107 H
Calcium 9.6
Total Bilirubin 0.4
AST 15
ALT < 10
Alkaline Phosphatase 44
Vital Signs:
Vital Signs
Temp Pulse Resp BP Pulse Ox
98.4 F 85 18 173/91 96
09/11/25 07:18 09/11/25 07:18 09/11/25 07:18 09/11/25 07:18 09/11/25 07:18
I&O
09/10/25 09/11/25 09/12/25
06:59 06:59 06:59
Intake Total 120 / 120 820 / 820
Balance 120 / 120 820 / 820
Review of Systems
-
History Source: Patient
All other systems: Reviewed and negative
[2025-09-11] MEDS: VANCOCIN 150 IV (11:33)
[2025-09-11] MEDS: 0.45%NACL 1000 IV (11:33)
[2025-09-11 11:55] LABS: Reticulocyte Count 1.4 % (0.4-2.8)
[2025-09-11 12:10] LABS: Iron 75 ug/dl (37-170)
[2025-09-11 12:19] LABS: Total Iron Binding Capacity 234 ug/dl (265-497)
[2025-09-11 13:43] LABS: Ferritin 123.0 ng/ml (11.1-264.0)
--- NOTE | 2025-09-11 13:48 | PTCARENOTE ---
BP trending high today, Dr. Garcia made aware. Recommends continuing to monitor. No new orders at this time
[2025-09-11 14:15] LABS: Folate > 20.0 ng/ml (2.76-20); Vitamin B12 377 pg/ml (239-931)
--- NOTE | 2025-09-11 14:36 | W.PN.ID1 ---
Date of Service
Date of Service: September 11, 2025
Today's Communication
for debridement today
Assessment / Plan
Chronic Wound of the Left Lower Extremity with exposed tendon
Cellulitis
- agree with plans for debridement today
- wound care is following
- continue vancomycin - appreciate pharmacy assistance with dosing
- continue zosyn, note had a recent course of cefepime
Chief Complaint
-: Other (wound infection and cellulitis)
Subjective / Review of Systems
afebrile
bp stable running hypertensive
for debridement today
Vital Signs / Physical Exam
Vital Signs
Vital Signs
Temp Pulse Resp BP Pulse Ox
98.4 F 74 18 169/77 96
09/11/25 07:18 09/11/25 13:41 09/11/25 07:18 09/11/25 13:41 09/11/25 07:18
Physical Exam
Constitutional: No Acute Distress
Cardiovascular: Regular Rate and S1/S2; Negative Murmur or Rub
Pulmonary: Clear and Symmetric; Negative Wheezes or Rales
Gastrointestinal: Soft, Non Tender, Non Distended and Normal Bowel Sounds
Extremities: Other (dressing clean, dry, intact)
Skin: Warm and Dry; Negative Rash or Jaundice
Objective Data
Lab Data
Lab Results
09/11/25 07:21
09/11/25 07:21
Estimated Creat Clear 41 ml/min 09/11/25 07:21
Total Bilirubin 0.4 mg/dl (0.2-1.3) 09/11/25 07:21
AST 15 U/L (14-36) 09/11/25 07:21
ALT < 10 U/L (0-35) 09/11/25 07:21
Alkaline Phosphatase 44 U/L (38-126) 09/11/25 07:21
Most recent labs reviewed.
Micro Results:
09/09/25 22:29 MRSA Screen - Final
Nose No Methicillin Resistant Staphylococcus aureus isolated.
Other: Report Reviewed (ankle xray: no fracture or destructive process)
--- NOTE | 2025-09-11 15:40 | PTCARENOTE ---
Report given to Alejo in OR. Patient transferred to OR via volunteer transport team.
--- NOTE | 2025-09-11 18:23 | W.PN.UPDATE ---
Update Note
Progress Note Update
80F s/p LLE excisional debridement, application of graft and NPWT
- NWB LLE
- NPWT should run continuous @125mmHg, anticipate first change 1 week
-- please notify if pressure lost for greater than 2 hrs or there is greater than 200cc drainage in 24hr period
- elevate LLE 2-3 pillows
- ice behind the knee prn
- will reassess on am rounds
[2025-09-11] MEDS: DILAUDID 0.5 MG IV (18:57)
[2025-09-11] MEDS: DILAUDID 0.25 MG IV (19:52)
[2025-09-12] VITALS (7 sets, daily range): BP systolic 125–146; BP diastolic 63–84; PULSE 79–80; O2SAT 96
[2025-09-12] MEDS: ZOSYN 50 IV ×5 (00:09→23:04)
[2025-09-12] MEDS: DILAUDID 0.5 MG IV ×5 (01:17→22:45)
[2025-09-12] MEDS: VANCOCIN 150 IV (05:12)
[2025-09-12] MEDS: ROXICODONE 5 MG PO ×4 (05:13→19:32)
[2025-09-12] MEDS: COREG 12.5 MG PO ×2 (07:31→19:32)
[2025-09-12] MEDS: ELIQUIS 5 MG PO ×2 (07:31→19:33)
[2025-09-12] MEDS: VISBIOME 1 CAP PO (07:31)
--- NOTE | 2025-09-12 09:04 | PHA.VAN.FU ---
Vancomycin Assessment / Plan
- Assessment
Renal Function: Stable
WBC's are: WNL
In the past 24 hrs, patient has been: Afebrile
Concomitant Antimicrobials: PIPERACILLIN/TAZOBACTAM
- Dosing Plan
Continue: 750mg daily
- Monitoring Plan
No level(s) ordered at this time: Consider level in next few days
- Follow Up
Pharmacy will continue to follow.
Vancomycin Follow UP
- -
Patient Age: 80
Patient Sex: Female
Vancomycin Day #: 4
Indication: Skin And Soft Tissue
Requesting Provider: Rachell BLACKBURN / Dr. Paulson
Pertinent Antimicrobial Allergies:
no pertinent antibiotic allergies
Height / Weight:
Height 5 ft 2 in
Actual Weight 47.673 kg
IBW in k
Pertinent Past Medical History: BMI ~19
- Vital Signs / Lab Results
Temp Pulse Resp BP Pulse Ox
98.5 F 78 16 140/65 95
09/12/25 07:25 09/12/25 07:31 09/12/25 07:25 09/12/25 07:31 09/12/25 08:16
Lab Results - Hematology
09/09/25 09/10/25 09/11/25
15:39 05:47 07:21
WBC 10.7 9.0 6.7
Lab Results - Chemistry
09/09/25 09/10/25 09/11/25
15:39 05:47 07:21
BUN 31 H 21 H 16
Creatinine 0.9 0.8 0.8
Estimated Creat Clear 41 41
Albumin 3.9 3.4 L 3.5
Microbiology Results
09/11/25 18:10 Gram Stain - Preliminary
Leg - Left
09/09/25 22:29 MRSA Screen - Final
Nose No Methicillin Resistant Staphylococcus aureus isolated.
Therapeutic Drug Monitoring
Random Vancomycin 11.5 ug/ml 09/11/25 07:21
--- NOTE | 2025-09-12 12:33 | W.PN.HOSP.TC ---
Today's Communication/Plan
-
Add oral B12
Continue antibiotics
Assessment / Plan
Assessment / Plan
Gen-AAOx3, NAD
HEENT-NC, AT, anicteric, clear oral mm
Neck-supple
CV-reg, no M, +S1/S2
Lungs-clear B/L
Abd-soft, NT, ND
Ext-no edema
Musculoskeletal-no cyanosis, clubbing
Skin-warm and dry. Left lower leg wound on posterior leg with granulation tissue and foul odor, surrounding erythema
Neuro-grossly non-focal
Psych-calm, cooperative
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 Treated with a short course of steroids. Antibiotics administered during last hospitalization in June. Discharged with a wound VAC. Unclear at
this point in time whether we are dealing with ongoing infection versus inflammation. No signs or symptoms of sepsis.
Seen in the wound care center by Dr. Sanchez, referred back to the hospital for nonhealing wound.
Seen by rheumatology, Dr. Nieto, in the office. I touched base with Dr. Nieto via [employer] text, he does not recommend further steroid use.
Currently getting systemic broad-spectrum antibiotics. Appreciate ID input.
Vascular surgery does not recommend any revascularization.
Underwent excisional debridement and application of graft and NPWT, 09/11. Wound cultures pending.
Nonweightbearing left lower extremity per podiatry. Elevate left lower extremity.
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
Spoke with physiatry, Dr. Arana. He recommends outpatient Goetz evaluation at [facility] with consideration for Dynasplint.
Hyponatremia -improved.
Subacute left lower extremity DVT -diagnosed a few weeks ago in rehab. Eliquis resumed. Likely will need 3 months of anticoagulation. Discussed with patient.
Essential hypertension -stable.
Osteoporosis
Chronic anemia -macrocytic. Hemoglobin at baseline.
No evidence of iron deficiency. Folic acid level normal, B12 377.
Will add oral B12.
Full code
Anticipated Discharge: 24 - 48 hours
Subjective/Interval History
-
Date of Service: September 12, 2025
Patient seen and examined. Leg pain has improved. No complaints.
Objective Data
-
Vital Signs:
Vital Signs
Temp Pulse Resp BP Pulse Ox
98.5 F 78 16 140/65 95
09/12/25 07:25 09/12/25 07:31 09/12/25 07:25 09/12/25 07:31 09/12/25 08:35
I&O
09/11/25 09/12/25 09/13/25
06:59 06:59 06:59
Intake Total 820 / 820 790 / 790 50 / 50
Output Total 150 / 150
Balance 820 / 820 640 / 640 50 / 50
Review of Systems
-
History Source: Patient
All other systems: Reviewed and negative
[2025-09-12] MEDS: VITAMIN B-12 1000 MCG PO (13:03)
--- NOTE | 2025-09-12 22:37 | OR.RPT ---
Operative Report
Operative Report
Operative Report
Patient: Ruth Skinner

Date of Surgery: 09/11/2025
Surgeon: Hector Marroquin DPM
Assistants: Hector Brooks DPM
Preoperative Diagnosis:
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
Postoperative Diagnosis:
Same as above
Procedures Performed:
Excisional debridement of skin, subcutaneous tissue, and muscle down to and including exposure of Achilles tendon � CPT 36344
Application of Integra bilayer dermal regeneration template, <100 cm� � CPT 46854
Application of negative pressure wound therapy (<50 cm�) � CPT 04202
Anesthesia:
General anesthesia with 20ccs of 0.5% bupivacaine plain
Hemostasis:
Anatomic dissection
Estimated Blood Loss:
Minimal
Specimens:
Wound culture
Achilles tendon for pathology
Complications:
None
Indications for Surgery:
The patient is an 80-year-old female with a significant medical history of leukocytoclastic vasculitis, which has led to chronic ulcerations and impaired healing. She presented with a severe chronic wound on the left posterior ankle/Achilles region
that had persisted despite local wound care, offloading, and antibiotic management. The wound contained nonviable tissue and exposed deeper structures. Due to persistent drainage, fibrinous slough, and devitalized soft tissue, she required operative
sharp debridement, followed by Integra application to promote dermal regeneration and wound VAC placement to optimize graft adherence and wound healing. Risks, benefits, and alternatives of surgical management were thoroughly reviewed and patient
consented to the procedure.
Procedure in Detail:
The patient was brought to the operating room and placed in the supine position with all pressure points padded. The left lower extremity was prepped and draped in the usual sterile fashion. A time-out was performed confirming patient identity,
procedure, and correct operative site.
1. Excisional Debridement (83228)
Attention was directed to the chronic wound over the posterior left ankle and Achilles tendon region. The wound demonstrated fibrinous slough, nonviable soft tissue, and chronic inflammatory tissue consistent with her history of leukocytoclastic
vasculitis.
Sharp excisional debridement was performed using scalpel and curettes down to the level of muscle and fascia. All nonviable epidermal, dermal, subcutaneous, and necrotic soft tissue was removed down to the level of the Achilles tendon, which was
exposed. Approximately 1/3rd of the depth of the Achilles tendon was debrided and the residual Achilles tendon appeared viable. A culture of the wound was obtained and the debrided Achilles tendon was sent to pathology. Hemostasis was achieved with
gentle pressure and electrocautery.
Following complete debridement, the wound measured approximately:
Length: 6.5 cm
Width: 4.7 cm
Depth: 0.5 cm
The wound bed displayed healthy bleeding tissue suitable for biologic graft application.
2. Integra Application (96797)
The wound was irrigated thoroughly using sterile saline. A piece of Integra bilayer dermal regeneration template was trimmed to size to match the wound dimensions. The Integra was carefully placed over the wound bed ensuring smooth contact with all
surfaces. It was secured with skin linda at the periphery to ensure full adherence to the underlying tissue.
There was no evidence of bleeding beneath the graft. The silicone layer of the Integra remained fully intact and properly positioned.
3. Negative Pressure Wound Therapy Application (<50 cm�) (64998)
A wound VAC sponge was cut to size and carefully placed over the Integra without disturbing the graft. The foam was sealed with an occlusive drape. Tubing was applied and connected to the negative pressure device.
The VAC system was initiated at appropriate continuous suction. A good seal was obtained with no evidence of air leakage. The dressing maintained full contact with the grafted wound bed. A sterile dressing was then applied to the left lower
extremity.
Postoperative Plan:
Keep wound VAC intact and functioning until follow-up dressing change.
Maintain limb elevation and avoid pressure on posterior ankle.
Continue management of vasculitis per primary team/rheumatology.
Follow-up in 7-10 days for VAC takedown and graft inspection.
Transition to partial weightbearing as tolerated with protective boot.
[2025-09-13] MEDS: ROXICODONE 5 MG PO ×4 (02:53→19:32)
[2025-09-13] MEDS: ZOSYN 50 IV ×3 (05:08→17:09)
[2025-09-13] MEDS: DILAUDID 0.5 MG IV ×3 (05:16→17:09)
[2025-09-13] MEDS: VANCOCIN 150 IV (05:45)
[2025-09-13 07:24] VITALS: BP 167/77
[2025-09-13] MEDS: VISBIOME 1 CAP PO (07:35)
[2025-09-13] MEDS: VITAMIN B-12 1000 MCG PO (07:35)
[2025-09-13] MEDS: ELIQUIS 5 MG PO ×2 (07:35→19:29)
[2025-09-13] MEDS: COREG 12.5 MG PO ×2 (07:35→19:29)
--- NOTE | 2025-09-13 08:20 | WOUNDNOTE ---
WOC RN Note: Faxed [facility] home vac paperwork to [facility] requesting a DocuSign to Dr. Marroquin's email [email or web address].
[2025-09-13 10:49] VITALS: BP 131/67
--- NOTE | 2025-09-13 10:49 | PTCARENOTE ---
BP this AM was 167/77 prior to AM meds. Meds administered along with pain medication. BP rechecked at 131/67.
--- NOTE | 2025-09-13 11:03 | W.PN.ID1 ---
Date of Service
Date of Service: September 13, 2025
Today's Communication
follow cultures another day
continue vancomycin and zosyn for present
Assessment / Plan
Chronic Wound of the Left Lower Extremity with exposed tendon
Cellulitis
- 09/11 underwent excisional debridement of skin, sq tissue, muscle including exposure of achilles tendon; had dermal regeneration template and negative pressure wound therapy
- continue vancomycin for today - appreciate pharmacy assistance with dosing
- follow wound culture another day
- continue zosyn, note had a recent course of cefepime
Chief Complaint
-: Other (wound infection and cellulitis)
Subjective / Review of Systems
afebrile
bp stable
09/11 underwent excisional debridement of skin, sq tissue, muscle including exposure of achilles tendon; had dermal regeneration template and negative pressure wound therapy
Vital Signs / Physical Exam
Vital Signs
Vital Signs
Temp Pulse Resp BP Pulse Ox
98.7 F 77 18 131/67 96
09/13/25 07:24 09/13/25 10:49 09/13/25 07:24 09/13/25 10:49 09/13/25 07:47
Physical Exam
Constitutional: No Acute Distress
Cardiovascular: Regular Rate and S1/S2; Negative Murmur or Rub
Pulmonary: Clear and Symmetric; Negative Wheezes or Rales
Gastrointestinal: Soft, Non Tender, Non Distended and Normal Bowel Sounds
Skin: Warm and Dry; Negative Rash or Jaundice
Wound: Other (wound vac in place)
Physical Exam:
wound vac in place
Objective Data
Lab Data
Lab Results
09/11/25 07:21
09/11/25 07:21
Estimated Creat Clear 41 ml/min 09/11/25 07:21
Total Bilirubin 0.4 mg/dl (0.2-1.3) 09/11/25 07:21
AST 15 U/L (14-36) 09/11/25 07:21
ALT < 10 U/L (0-35) 09/11/25 07:21
Alkaline Phosphatase 44 U/L (38-126) 09/11/25 07:21
Most recent labs reviewed.
Micro Results:
09/11/25 18:10 Wound Culture - Preliminary
Leg - Left Pseudomonas aeruginosa
Proteus mirabilis
Gram Stain - Preliminary
09/11/25 18:10 Anaerobic Culture - Preliminary
Leg - Left Culture pending. Anaerobic cultures are examined after 3
days incubation. Additional information to follow.
09/09/25 22:29 MRSA Screen - Final
Nose No Methicillin Resistant Staphylococcus aureus isolated.
--- NOTE | 2025-09-13 11:23 | CM ---
Met with pt at bedside, had surgery yesterday. No plans for discharge yet.
CM will continue to follow.
--- NOTE | 2025-09-13 11:27 | W.PN.HOSP.TC ---
Today's Communication/Plan
-
Continue antibiotics
Assessment / Plan
Assessment / Plan
Gen-AAOx3, NAD
HEENT-NC, AT, anicteric, clear oral mm
Neck-supple
CV-reg, no M, +S1/S2
Lungs-clear B/L
Abd-soft, NT, ND
Ext-no edema
Musculoskeletal-no cyanosis, clubbing
Skin-warm and dry. Left lower leg wound on posterior leg with granulation tissue and foul odor, surrounding erythema
Neuro-grossly non-focal
Psych-calm, cooperative
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 Treated with a short course of steroids. Antibiotics administered during last hospitalization in June. Discharged with a wound VAC. Unclear at
this point in time whether we are dealing with ongoing infection versus inflammation. No signs or symptoms of sepsis.
Seen in the wound care center by Dr. Sanchez, referred back to the hospital for nonhealing wound.
Seen by rheumatology, Dr. Nieto, in the office. I touched base with Dr. Nieto via [employer] text, he does not recommend further steroid use.
Currently getting systemic broad-spectrum antibiotics. Appreciate ID input.
Vascular surgery does not recommend any revascularization.
Underwent excisional debridement and application of graft and NPWT, 09/11. Wound cultures Pseudomonas aeruginosa, Proteus mirabilis.
Nonweightbearing left lower extremity per podiatry. Elevate left lower extremity.
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
Spoke with physiatry, Dr. Arana. He recommends outpatient Goetz evaluation at [facility] with consideration for Dynasplint.
Hyponatremia -improved.
Subacute left lower extremity DVT -diagnosed a few weeks ago in rehab. Eliquis resumed. Likely will need 3 months of anticoagulation. Discussed with patient.
Essential hypertension -stable.
Osteoporosis
Chronic anemia -macrocytic. Hemoglobin at baseline.
No evidence of iron deficiency. Folic acid level normal, B12 377.
Will add oral B12.
Full code
Dispo -can discharge when cleared by surgery as well as ID services. Will need home care.
Anticipated Discharge: Within 24 hours
Subjective/Interval History
-
Date of Service: September 13, 2025
Patient seen and examined, asking about discharge plans. No complaints.
Objective Data
-
Vital Signs:
Vital Signs
Temp Pulse Resp BP Pulse Ox
98.7 F 77 18 131/67 96
09/13/25 07:24 09/13/25 10:49 09/13/25 07:24 09/13/25 10:49 09/13/25 07:47
I&O
09/12/25 09/13/25 09/14/25
06:59 06:59 06:59
Intake Total 790 / 790 640 / 640 50 / 50
Output Total 150 / 150
Balance 640 / 640 640 / 640 50 / 50
Review of Systems
-
History Source: Patient
All other systems: Reviewed and negative
[2025-09-13 12:48] VITALS: BP 163/73; PULSE 79; O2SAT 96
--- NOTE | 2025-09-13 13:25 | PHA.VAN.FU ---
Vancomycin Assessment / Plan
- Assessment
Renal Function: No New Labs Today
In the past 24 hrs, patient has been: Afebrile
Concomitant Antimicrobials: piperacillin/tazobactam
- Dosing Plan
Continue: Vanc 750mg Q24H
- Monitoring Plan
Peak Level: 09/14 0900
Trough Level: 09/14 0530
Monitoring Comments: levels to be drawn around 4th maintenance dose
- Follow Up
Pharmacy will continue to follow.
Vancomycin Follow UP
- -
Patient Age: 80
Patient Sex: Female
Vancomycin Day #: 5
Indication: Skin And Soft Tissue
Requesting Provider: Rachell BLACKBURN / Dr. Paulson
Pertinent Antimicrobial Allergies:
no pertinent antibiotic allergies
Height / Weight:
Height 5 ft 2 in
Actual Weight 47.673 kg
IBW in k
Pertinent Past Medical History: BMI ~19
- Vital Signs / Lab Results
Temp Pulse Resp BP Pulse Ox
98.7 F 77 18 131/67 96
09/13/25 07:24 09/13/25 10:49 09/13/25 07:24 09/13/25 10:49 09/13/25 07:47
Lab Results - Hematology
09/11/25
07:21
WBC 6.7
Lab Results - Chemistry
09/11/25
07:21
BUN 16
Creatinine 0.8
Estimated Creat Clear 41
Albumin 3.5
Microbiology Results
09/11/25 18:10 Wound Culture - Preliminary
Leg - Left Pseudomonas aeruginosa
Proteus mirabilis
Gram Stain - Preliminary
09/11/25 18:10 Anaerobic Culture - Preliminary
Leg - Left Culture pending. Anaerobic cultures are examined after 3
days incubation. Additional information to follow.
Therapeutic Drug Monitoring
Random Vancomycin 11.5 ug/ml 11/26/25 07:21
--- NOTE | 2025-09-13 14:53 | W.PN.UPDATE ---
Update Note
Progress Note Update
80F s/p LLE excisional debridement, application of graft and NPWT. NPWT running continuous. dressings c/d/i, motor function intact to toes, cft wnl, sensation intact to pedal distributions.
- Toe touch weight bearing LLE
- NPWT should run continuous @125mmHg, anticipate first change 1 week
-- please notify if pressure lost for greater than 2 hrs or there is greater than 200cc drainage in 24hr period
- elevate LLE 2-3 pillows
- ice behind the knee prn
- may follow up in office with Cara or myself
[2025-09-13 15:47] VITALS: BP 111/63
--- NOTE | 2025-09-13 15:56 | WOUNDNOTE ---
[facility] RN note: t/c Spoke with Dr. Marroquin who stated he did not receive a [employer] to his email yet. Faxed ready custodial vac paperwork to Dr. Marroquin's fax [phone] Marroquin to sign, date and fax the form to [employer] fax
# . This sports book writer's [employer] contact Natty Lakesha is out of the office until next week. t/c [employer] ext. [phone], spoke with Ronaldo and requested update on [employer] home vac approval. Ronaldo to pass information and this
sports book writer's contact information for a call back from the national account representative assigned. If [employer] does not approve home vac today, they will not be able to confirm approval until Tuesday.
--- NOTE | 2025-09-13 18:08 | WOUNDNOTE ---
WOC RN note: [employer] home vac not approved yet (marked 'order received') when checked [employer] portal and did not receive call back with an update [facility] to case. Will follow up Tuesday.
[2025-09-13 23:40] VITALS: BP 158/71
[2025-09-14] MEDS: ZOSYN 50 IV ×2 (00:38→05:07)
[2025-09-14] MEDS: DILAUDID 0.5 MG IV (00:39)
[2025-09-14] MEDS: ZOFRAN 4 MG IV (00:39)
[2025-09-14] MEDS: ROXICODONE 5 MG PO ×4 (03:04→19:06)
[2025-09-14] MEDS: VANCOCIN 150 IV (06:18)
[2025-09-14 08:01] VITALS: BP 166/77
[2025-09-14] MEDS: VITAMIN B-12 1000 MCG PO (10:09)
[2025-09-14] MEDS: VISBIOME 1 CAP PO (10:09)
[2025-09-14] MEDS: ELIQUIS 5 MG PO ×2 (10:09→19:06)
[2025-09-14] MEDS: COREG 12.5 MG PO ×2 (10:10→19:13)
--- NOTE | 2025-09-14 10:14 | PHA.VAN.FU ---
Vancomycin Assessment / Plan
- Assessment
Renal Function: Stable
WBC's are: Trending Down
In the past 24 hrs, patient has been: Afebrile
Concomitant Antimicrobials: ZOSYN
- Assessment - Therapeutic Drug Monitoring
Extrapolated Cmax (mcg/mL): 23.4
Peak level was drawn: Appropriately
Extrapolated Cmin (mcg/mL): 11.4
Trough Drawn: Appropriately
Levels were drawn: At steady state
Calculated AUC (mcg*h/mL): 411
Calculated ke: 0.0354
Calculated half life (H): 19.6
Calculated Vd (L): 51.65
Calculated Vanc CL (ml/min): 30.45
- Dosing Plan
Continue: 750MG Q24H
- Monitoring Plan
Level(s) appropriate: Recheck trough at minimum of weekly intervals, Repeat sooner for changes in renal function or clinical status
- Follow Up
Pharmacy will continue to follow.
Vancomycin Follow UP
- -
Patient Age: 80
Patient Sex: Female
Vancomycin Day #: 6
Indication: Skin And Soft Tissue
Requesting Provider: aRchell BLACKBURN / Dr. Paulson
Pertinent Antimicrobial Allergies:
no pertinent antibiotic allergies
Height / Weight:
Height 5 ft 2 in
Actual Weight 47.673 kg
IBW in k
Pertinent Past Medical History: BMI ~19
- Vital Signs / Lab Results
Temp Pulse Resp BP Pulse Ox
98.5 F 75 16 166/77 94
09/14/25 08:01 09/14/25 08:01 09/14/25 08:01 09/14/25 08:01 09/14/25 08:01
Microbiology Results
09/13/25 17:57 Salmonella/Shigella Culture - Preliminary
Feces/Stool Culture in Progress
Campylobacter Culture - Preliminary
Culture in Progress
09/11/25 18:10 Wound Culture - Preliminary
Leg - Left Pseudomonas aeruginosa
Proteus mirabilis
Gram Stain - Preliminary
09/13/25 17:57 C. difficile GDH Antigen & Toxins - Final
Feces/Stool C. difficile antigen positive, toxin negative.
Clostridium difficile present, but toxin not detected.
Patient may be a carrier, colonized with nontoxinogenic
strain or the level of toxin in sample is below detection
limits. This information should be used in conjunction with
the patient's clinical history.
09/11/25 18:10 Anaerobic Culture - Preliminary
Leg - Left Culture pending. Anaerobic cultures are examined after 3
days incubation. Additional information to follow.
Therapeutic Drug Monitoring
Vancomycin Peak 23.4 ug/ml (18-26) 09/14/25 09:06
Vancomycin Trough 11.4 ug/ml (5-20) 09/14/25 05:26
Random Vancomycin 11.5 ug/ml 09/11/25 07:21
--- NOTE | 2025-09-14 10:30 | CM ---
Addendum entered by Rosie Jasmine 09/14/25 10:35:
Per petroleum products sales representative note, [employer] home Vac not approved yet (marked 'order received'). They will follow up Tuesday morning.
Original Note:
Per Attending, patient will need a new Wound VAC when discharged; Infectious Disease Antibiotic Recommendation pending
--- NOTE | 2025-09-14 10:35 | W.PN.ID1 ---
Date of Service
Date of Service: September 14, 2025
Today's Communication
Narrowed to ciprofloxacin.
Assessment / Plan
Chronic Wound of the Left Lower Extremity with exposed tendon
Cellulitis
- 09/11 underwent excisional debridement of skin, sq tissue, muscle including exposure of achilles tendon; had dermal regeneration template and negative pressure wound therapy
Recommendations:
Cultures reviewed; Pseudomonas and Proteus mirabilis recovered.
Narrow antibiotic coverage to ciprofloxacin 500 mg p.o. BID, to complete a 7-day course in total.
Chief Complaint
-: Other (wound infection and cellulitis)
Subjective / Review of Systems
Review of Systems: No Fever and No Chills
Vital Signs / Physical Exam
Vital Signs
Vital Signs
Temp Pulse Resp BP Pulse Ox
98.5 F 75 16 166/77 94
09/14/25 08:01 09/14/25 08:01 09/14/25 08:01 09/14/25 08:01 09/14/25 08:01
Physical Exam
Constitutional: No Acute Distress, Comfortable and Non-toxic
Cardiovascular: S1/S2; Negative S3/S4
Pulmonary: Non Labored
Gastrointestinal: Soft and Non Tender
Skin: Warm and Dry; Negative Rash or Jaundice
Wound: Other (Wound VAC in place to left leg. Jim wrap in place.)
Neurological: Awake and Alert
Psychological: Calm
Physical Exam:
wound vac in place
Objective Data
Lab Data
Lab Results
09/11/25 07:21
09/11/25 07:21
Estimated Creat Clear 41 ml/min 09/11/25 07:21
Total Bilirubin 0.4 mg/dl (0.2-1.3) 09/11/25 07:21
AST 15 U/L (14-36) 09/11/25 07:21
ALT < 10 U/L (0-35) 09/11/25 07:21
Alkaline Phosphatase 44 U/L (38-126) 09/11/25 07:21
Most recent labs reviewed.
Micro Results:
09/13/25 17:57 Salmonella/Shigella Culture - Preliminary
Feces/Stool Culture in Progress
Campylobacter Culture - Preliminary
Culture in Progress
Shiga Toxin Test - Pending
09/11/25 18:10 Wound Culture - Preliminary
Leg - Left Pseudomonas aeruginosa
Proteus mirabilis
Gram Stain - Preliminary
09/13/25 17:57 C. difficile GDH Antigen & Toxins - Final
Feces/Stool C. difficile antigen positive, toxin negative.
Clostridium difficile present, but toxin not detected.
Patient may be a carrier, colonized with nontoxinogenic
strain or the level of toxin in sample is below detection
limits. This information should be used in conjunction with
the patient's clinical history.
09/11/25 18:10 Anaerobic Culture - Preliminary
Leg - Left Culture pending. Anaerobic cultures are examined after 3
days incubation. Additional information to follow.
09/09/25 22:29 MRSA Screen - Final
Nose No Methicillin Resistant Staphylococcus aureus isolated.
Wound/abscess/other Cult Preliminary 09/14/25-0851
Few Pseudomonas aeruginosa
Few Proteus mirabilis
Few Diptheroids
Organism 1 Pseudomonas aeruginosa
Organism 2 Proteus mirabilis
P.AERU P.MIRABILI
M.I.C. RX M.I.C. RX
--------- --- --------- ---
Amoxicillin/Potas. Clavulanate <=8/4 S
Ampicillin <=8 S
Ampicillin/Sulbactam <=4/2 S
Aztreonam <=4 S <=4 S
Cefazolin <=2 S
Cefepime <=2 S
Ceftazidime <=1 S
Ertapenem <=0.5 S
Ciprofloxacin <=0.25 S <=0.25 S
Gentamicin <=2 S
Meropenem <=1 S <=1 S
Piperacillin/Tazobactam <=8 S <=8 S
Tetracycline <=4 R
Tobramycin <=2 S <=2 S
Trimethoprim/Sulfamethoxazole <=2/38 S
Care Review
Plan reviewed with: Physician (Hospitalist)
--- NOTE | 2025-09-14 11:30 | W.PN.HOSP.TC ---
Today's Communication/Plan
-
Continue current care
Assessment / Plan
Assessment / Plan
Gen-AAOx3, NAD
HEENT-NC, AT, anicteric, clear oral mm
Neck-supple
CV-reg, no M, +S1/S2
Lungs-clear B/L
Abd-soft, NT, ND
Ext-no edema
Musculoskeletal-no cyanosis, clubbing
Skin-warm and dry. Left lower leg wound on posterior leg with granulation tissue and foul odor, surrounding erythema
Neuro-grossly non-focal
Psych-calm, cooperative
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 Treated with a short course of steroids. Antibiotics administered during last hospitalization in June. Discharged with a wound VAC. Unclear at
this point in time whether we are dealing with ongoing infection versus inflammation. No signs or symptoms of sepsis.
Seen in the wound care center by Dr. Sanchez, referred back to the hospital for nonhealing wound.
Seen by rheumatology, Dr. Nieto, in the office. I touched base with Dr. Nieto via [place] text, he does not recommend further steroid use.
Vascular surgery does not recommend any revascularization.
Underwent excisional debridement and application of graft and NPWT, 09/11. Wound cultures Pseudomonas aeruginosa, Proteus mirabilis.
Nonweightbearing left lower extremity per podiatry. Elevate left lower extremity.
Now on oral Cipro as per ID.
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
Spoke with physiatry, Dr. Arana. He recommends outpatient Goetz evaluation at [facility] with consideration for Dynasplint.
Acute diarrhea -likely antibiotic related. Stool C. difficile antigen positive, toxin negative.
Should improve with conservative management.
Hyponatremia -improved.
Subacute left lower extremity DVT -diagnosed a few weeks ago in rehab. Eliquis resumed. Likely will need 3 months of anticoagulation. Discussed with patient.
Essential hypertension -stable.
Osteoporosis
Chronic anemia -macrocytic. Hemoglobin at baseline.
No evidence of iron deficiency. Folic acid level normal, B12 377.
Continue oral B12.
Full code
Dispo -can discharge when home VAC delivered, likely Tuesday.
Anticipated Discharge: 24 - 48 hours
Subjective/Interval History
-
Date of Service: September 14, 2025
Patient seen/examined. Complaining of diarrhea.
Objective Data
-
Vital Signs:
Vital Signs
Temp Pulse Resp BP Pulse Ox
98.5 F 75 16 166/77 94
09/14/25 08:01 09/14/25 08:01 09/14/25 08:01 09/14/25 08:01 09/14/25 08:01
I&O
09/13/25 09/14/25 09/15/25
06:59 06:59 06:59
Intake Total 640 / 640 1720 / 1720
Balance 640 / 640 1720 / 1720
Review of Systems
-
History Source: Patient
All other systems: Reviewed and negative
[2025-09-14 15:42] VITALS: BP 135/72
[2025-09-14] MEDS: CIPRO 500 MG PO (19:06)
[2025-09-14 23:40] VITALS: BP 149/80
[2025-09-15] MEDS: DILAUDID 0.5 MG IV (00:02)
[2025-09-15] MEDS: ROXICODONE 5 MG PO ×5 (03:13→20:09)
[2025-09-15 07:00] VITALS: BP 165/87
[2025-09-15] MEDS: VITAMIN B-12 1000 MCG PO (07:40)
[2025-09-15] MEDS: COREG 12.5 MG PO ×2 (07:40→20:09)
[2025-09-15] MEDS: VISBIOME 1 CAP PO (07:41)
[2025-09-15] MEDS: CIPRO 500 MG PO ×2 (09:16→20:09)
[2025-09-15] MEDS: ELIQUIS 5 MG PO ×2 (09:16→20:08)
--- NOTE | 2025-09-15 10:00 | W.PN.ID1 ---
Date of Service
Date of Service: September 15, 2025
Today's Communication
Continue abx.
Assessment / Plan
Chronic wound of Left lower extremity with exposed tendon
Cellulitis
- 09/11 underwent excisional debridement of skin, sq tissue, muscle including exposure of achilles tendon; had dermal regeneration template and negative pressure wound therapy
Recommendations:
Cultures reviewed; Pseudomonas and Proteus mirabilis recovered.
Continue ciprofloxacin 500 mg p.o. BID (d#6 abx); to complete a 7-day course in total.

Chief Complaint
-: Other (LLE wound infection and cellulitis)
Subjective / Review of Systems
Pt seen / examined. Notes ongoing leg discomfort. Prior diarrhea improving,
Review of Systems: No Fever and No Chills
Vital Signs / Physical Exam
Vital Signs
Vital Signs
Temp Pulse Resp BP Pulse Ox
98.5 F 79 14 165/87 97
09/15/25 07:00 09/15/25 07:00 09/15/25 07:00 09/15/25 07:00 09/15/25 07:00
Physical Exam
Constitutional: No Acute Distress, Comfortable and Non-toxic
Cardiovascular: S1/S2; Negative S3/S4
Pulmonary: Non Labored
Gastrointestinal: Soft and Non Tender
Skin: Warm and Dry; Negative Rash or Jaundice
Wound: Other (Wound VAC in place to left leg. Jim wrap in place.)
Neurological: Awake and Alert
Psychological: Calm
Objective Data
Lab Data
Lab Results
09/11/25 07:21
09/11/25 07:21
Estimated Creat Clear 41 ml/min 09/11/25 07:21
Total Bilirubin 0.4 mg/dl (0.2-1.3) 09/11/25 07:21
AST 15 U/L (14-36) 09/11/25 07:21
ALT < 10 U/L (0-35) 09/11/25 07:21
Alkaline Phosphatase 44 U/L (38-126) 09/11/25 07:21
Most recent labs reviewed.
Micro Results:
09/13/25 17:57 Salmonella/Shigella Culture - Final
Feces/Stool No Salmonella, Shigella, Aeromonas or Plesiomonas species
isolated.
Campylobacter Culture - Final
No Campylobacter species isolated.
Shiga Toxin Test - Pending
09/11/25 18:10 Anaerobic Culture - Preliminary
Leg - Left Culture pending. Anaerobic cultures are examined after 3
days incubation. Additional information to follow.
09/11/25 18:10 Wound Culture - Preliminary
Leg - Left Pseudomonas aeruginosa
Proteus mirabilis
Gram Stain - Preliminary
09/13/25 17:57 C. difficile GDH Antigen & Toxins - Final
Feces/Stool C. difficile antigen positive, toxin negative.
Clostridium difficile present, but toxin not detected.
Patient may be a carrier, colonized with nontoxinogenic
strain or the level of toxin in sample is below detection
limits. This information should be used in conjunction with
the patient's clinical history.
09/09/25 22:29 MRSA Screen - Final
Nose No Methicillin Resistant Staphylococcus aureus isolated.
Wound/abscess/other Cult Preliminary 09/14/25-850
Few Pseudomonas aeruginosa
Few Proteus mirabilis
Few Diptheroids
Organism 1 Pseudomonas aeruginosa
Organism 2 Proteus mirabilis
P.AERU P.MIRABILI
M.I.C. RX M.I.C. RX
--------- --- --------- ---
Amoxicillin/Potas. Clavulanate <=8/4 S
Ampicillin <=8 S
Ampicillin/Sulbactam <=4/2 S
Aztreonam <=4 S <=4 S
Cefazolin <=2 S
Cefepime <=2 S
Ceftazidime <=1 S
Ertapenem <=0.5 S
Ciprofloxacin <=0.25 S <=0.25 S
Gentamicin <=2 S
Meropenem <=1 S <=1 S
Piperacillin/Tazobactam <=8 S <=8 S
Tetracycline <=4 R
Tobramycin <=2 S <=2 S
Trimethoprim/Sulfamethoxazole <=2/38 S
--- NOTE | 2025-09-15 10:31 | W.PN.HOSP.TC ---
Today's Communication/Plan
-
Continue current care
Assessment / Plan
Assessment / Plan
Gen-AAOx3, NAD
HEENT-NC, AT, anicteric, clear oral mm
Neck-supple
CV-reg, no M, +S1/S2
Lungs-clear B/L
Abd-soft, NT, ND
Ext-no edema
Musculoskeletal-no cyanosis, clubbing
Skin-warm and dry. Left lower leg Jim wrap dressing with wound VAC
Neuro-grossly non-focal
Psych-calm, cooperative
Chronic left lower leg wound, with superimposed infection -nonhealing wound. Previously diagnosed as leukocytoclastic vasculitis. Treated with a short course of steroids. Antibiotics administered during last hospitalization in June.
Discharged with a wound VAC. Unclear at this point in time whether we are dealing with ongoing infection versus inflammation. No signs or symptoms of sepsis.
Seen in the wound care center by Dr. Sanchez, referred back to the hospital for nonhealing wound.
Seen by rheumatology, Dr. Nieto, in the office. I touched base with Dr. Nieto via [place] text, he does not recommend further steroid use.
Vascular surgery does not recommend any revascularization.
Underwent excisional debridement and application of graft and NPWT, 09/11. Wound cultures Pseudomonas aeruginosa, Proteus mirabilis.
Nonweightbearing left lower extremity per podiatry. Elevate left lower extremity.
Now on oral Cipro as per ID. Plan for 7-day course in total.
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
Spoke with physiatry, Dr. Arana. He recommends outpatient Goetz evaluation at [facility] with consideration for Dynasplint.
Acute diarrhea -likely antibiotic related. Stool C. difficile antigen positive, toxin negative.
Should improve with conservative management.
Hyponatremia -improved.
Subacute left lower extremity DVT -diagnosed a few weeks ago in rehab. Eliquis resumed. Likely will need 3 months of anticoagulation. Discussed with patient.
Essential hypertension -stable.
Osteoporosis
Chronic anemia -macrocytic. Hemoglobin at baseline.
No evidence of iron deficiency. Folic acid level normal, B12 377.
Continue oral B12.
Full code
Dispo -can discharge when home VAC delivered, likely Tuesday.
Anticipated Discharge: Within 24 hours
Subjective/Interval History
-
Date of Service: September 15, 2025
Patient seen and examined. No complaints.
Objective Data
-
Vital Signs:
Vital Signs
Temp Pulse Resp BP Pulse Ox
98.5 F 79 14 165/87 97
09/15/25 07:00 09/15/25 07:00 09/15/25 07:00 09/15/25 07:00 09/15/25 07:00
I&O
09/14/25 09/15/25 09/16/25
06:59 06:59 06:59
Intake Total 1720 / 1720
Balance 1720 / 1720
Review of Systems
-
History Source: Patient
All other systems: Reviewed and negative
[2025-09-15 15:00] VITALS: BP 138/73
[2025-09-15 23:20] VITALS: BP 139/74
[2025-09-16] MEDS: ROXICODONE 5 MG PO ×4 (03:25→16:15)
[2025-09-16 07:25] VITALS: BP 148/86
[2025-09-16] MEDS: CIPRO 500 MG PO (07:55)
[2025-09-16] MEDS: VITAMIN B-12 1000 MCG PO (07:55)
[2025-09-16] MEDS: ELIQUIS 5 MG PO (07:55)
[2025-09-16] MEDS: VISBIOME 1 CAP PO (07:55)
[2025-09-16] MEDS: COREG 12.5 MG PO (07:56)
--- NOTE | 2025-09-16 10:34 | WOUNDNOTE ---
[facility] RN Note: Natty Crowder from [facility] called and stated patient has to call [facility] to pick up man her old home vac (which patient states it's not working properly) and once she has made arrangement for pick up man of her old home vac at home,
[facility] can proceed with releasing her another home vac (ready care vac).t/c Spoke with patient and informed her to call [facility] and ask for a pick up man of her old home vac from home. Patient also given Eli Crowder cell phone
number for updates/questions.
[2025-09-16 11:50] VITALS: BP 171/96; PULSE 88; O2SAT 94
--- NOTE | 2025-09-16 11:54 | CM ---
Addendum entered by Eulalia Dueñas 09/16/25 15:15:
Home vac has been arranged and placed bedside by WOC
Discussion with attending- ready for dc today
Bedside IMM verbally with pt and dtr- copy provided
Update to [facility] liaison who was also bedside to answer questions
Discharge Disposition- home with [facility] and wound, family transport
Original Note:
CM reviewed chart- ready for dc pending arrangements for home vac
Outreach to WOC- arrangements still pending for vac, awaiting finalization of home vac delivery
Update provided to [facility] liaison, pt accepted for [facility] and will dc on PO abx
Discharge Disposition- home with [facility], new wound vac
--- NOTE | 2025-09-16 13:29 | WOUNDNOTE ---
WO RN Note: Patient's home ready care vac has been approved as per [employer] express therapy portal. Will bring up and switch rental hospital vac to her home ready care vac. Next vac dressing due Tuesday. Codi Nunn [facility] nurse liaison
aware of next vac dressing change due Tue.
--- NOTE | 2025-09-16 14:00 | W.PN.ID1 ---
Date of Service
Date of Service: September 16, 2025
Today's Communication
final day of ciprofloxacin
Assessment / Plan
Chronic wound of Left lower extremity with exposed tendon
Cellulitis
- 09/11 underwent excisional debridement of skin, sq tissue, muscle including exposure of achilles tendon; had dermal regeneration template and negative pressure wound therapy
Recommendations:
Cultures reviewed; Pseudomonas and Proteus mirabilis recovered.
Continue ciprofloxacin 500 mg p.o. BID (d#7 of 7 abx)

Chief Complaint
-: Other (LLE wound infection and cellulitis)
Subjective / Review of Systems
afebrile
bp stable
no events overnight
new wound vac delivered
Vital Signs / Physical Exam
Vital Signs
Vital Signs
Temp Pulse Resp BP Pulse Ox
98.2 F 84 18 148/86 94
09/16/25 07:25 09/16/25 07:56 09/16/25 07:25 09/16/25 07:56 09/16/25 07:25
Physical Exam
Constitutional: No Acute Distress
Cardiovascular: Regular Rate and S1/S2; Negative Murmur or Rub
Pulmonary: Clear and Symmetric; Negative Wheezes or Rales
Gastrointestinal: Soft, Non Tender, Non Distended and Normal Bowel Sounds
Skin: Warm and Dry; Negative Rash or Jaundice
Physical Exam:
wound vac
Objective Data
Lab Data
Lab Results
09/11/25 07:21
09/11/25 07:21
Estimated Creat Clear 41 ml/min 09/11/25 07:21
Total Bilirubin 0.4 mg/dl (0.2-1.3) 09/11/25 07:21
AST 15 U/L (14-36) 09/11/25 07:21
ALT < 10 U/L (0-35) 09/11/25 07:21
Alkaline Phosphatase 44 U/L (38-126) 09/11/25 07:21
Most recent labs reviewed.
Micro Results:
09/11/25 18:10 Wound Culture - Final
Leg - Left Pseudomonas aeruginosa
Proteus mirabilis
Gram Stain - Final
09/11/25 18:10 Anaerobic Culture - Final
Leg - Left Bacteroides fragilis
Finegoldia magna
09/13/25 17:57 Salmonella/Shigella Culture - Final
Feces/Stool No Salmonella, Shigella, Aeromonas or Plesiomonas species
isolated.
Campylobacter Culture - Final
No Campylobacter species isolated.
Shiga Toxin Test - Final
No E. coli Shiga Toxin 1 or 2 detected.
09/13/25 17:57 C. difficile GDH Antigen & Toxins - Final
Feces/Stool C. difficile antigen positive, toxin negative.
Clostridium difficile present, but toxin not detected.
Patient may be a carrier, colonized with nontoxinogenic
strain or the level of toxin in sample is below detection
limits. This information should be used in conjunction with
the patient's clinical history.
09/09/25 22:29 MRSA Screen - Final
Nose No Methicillin Resistant Staphylococcus aureus isolated.
Wound/abscess/other Cult Preliminary 09/14/25-51
Few Pseudomonas aeruginosa
Few Proteus mirabilis
Few Diptheroids
Organism 1 Pseudomonas aeruginosa
Organism 2 Proteus mirabilis
P.AERU P.MIRABILI
M.I.C. RX M.I.C. RX
--------- --- --------- ---
Amoxicillin/Potas. Clavulanate <=8/4 S
Ampicillin <=8 S
Ampicillin/Sulbactam <=4/2 S
Aztreonam <=4 S <=4 S
Cefazolin <=2 S
Cefepime <=2 S
Ceftazidime <=1 S
Ertapenem <=0.5 S
Ciprofloxacin <=0.25 S <=0.25 S
Gentamicin <=2 S
Meropenem <=1 S <=1 S
Piperacillin/Tazobactam <=8 S <=8 S
Tetracycline <=4 R
Tobramycin <=2 S <=2 S
Trimethoprim/Sulfamethoxazole <=2/38 S
Care Review
Plan reviewed with: Physician (Dr Sun - requesting discharge)
--- NOTE | 2025-09-16 14:31 | WOUNDNOTE ---
WO RN Note: Patient's vac pump switched from hospital rental vac ulta pump to her ready home vac pump (serial # [id number]). Patient instructed how to turn on/off vac pump, how to change vac canister, how to clamp/disconnect and reconnect and
unclamp vac tubing. Instructed patient how to plug in vac power cord and to call VN or [employer] tech support 09/05 for vac pump problems/concerns. Instructed patient if the vac dressing looses it's suction, to call [facility] or [employer]. Patient
instructed can reinforce an air leak with strip of vac drape or Tegaderm. Patient instructed the vac suction should not be off for more than 2 hours. LLE elevated on pillows. L knee high Webril and Jim intact. Skin on R heel blanchable mild red and
intact. Coccyx blanchable red. Air chair cushion given. Heels off bed with pillow. Patient aware next vac dressing change is due on Tuesday and she is to follow up with her surgeon. Updated ASHLEY Solorzano. Hospital rental vac pump placed in 2N soiled
utility room.
--- NOTE | 2025-09-16 15:07 | W.DCSUMMARY ---
Discharge Summary
Discharge Data
Date of Admission: 09/09/25
Date of Discharge: 09/16/25
Total time spent discharging patient (in min): 35
-
Pending Results: No
Hospital Course
Attending physician on day of discharge:
Hilary Sun MD
Discharge diagnosis:
Infected chronic LLE wound
Secondary diagnoses:
Local classic vasculitis
Gait dysfunction
Diarrhea
Hyponatremia
Subacute LLE DVT
HTN
Consultations:
ID
Vascular surgery
Podiatry
Procedures:
Excisional debridement and application of graft and wound VAC placement 09/12/2025
Hospital course:
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 She was seen by vascular surgery who did not recommend any revascularization, she was seen by
podiatry who performed the above procedure. Patient was made nonweightbearing left lower extremity. Home wound VAC was arranged. Wound cultures were positive Pseudomonas aeruginosa, Proteus mirabilis. She was treated with IV antibiotics Zosyn
and then switched to oral Cipro for total 7-day course which she completed in the hospital. She did experience some diarrhea that was antibiotic related but started to improve prior to discharge. she was noted to have gait dysfunction due to her
tendon contractures and after discussion with PM&R they recommended outpatient evaluation for Dynasplint.
Physical exam on discharge:
Gen: NAD
HEENT: PERRLA, EOMI, MMM, neck supple
Cards: RRR, no M/G/R
Resp: Lungs CTAB, no W/R/R
GI: soft, NT/ND/NABS
MSK: No edema
Skin: LLE in dressing, C/D/I
Heme: No LAD
Psych: Calm
Neuro: AAOx3
Discharge disposition:
Home with home care
Discharge Plan
-
Patient Disposition: Home with Home Care
Discharge Diagnosis/Procedures: Left lower leg Wound infection
Diet: Regular
Activity: Do not bear weight L leg
Driving Restrictions: No driving
Other Services: [facility]N
Activity Restrictions/Additional Instructions:
Wound Care Instructions
LLE-wound vac therapy, use adaptic and black foam, First vac dressing change due 09/18/25. Then change every 48 - 72 hours (i. e. Iceeelk-Bymzgjslzs-Bgoawar) and prn if unable to obtain a seal. Low Intensity, Continuous at 125 mmHg.
Toe touch weight bearing LLE
Follow up with Dr. Hector Marroquin.
Referrals:
Jc Sanchez MD [Active, Plastic Surgery]
Jarrell Grimes DO [Family Provider, Family Practice]
Hector Marroquin MD [Active, Podiatry]
Additional Discharge Medication Instructions: For your gait, go to outpatient therapy for evaluation at [facility] [place] with consideration for Dynasplint.
Prescriptions:
Continued
acetaminophen [Tylenol] 325 mg Tablet
650 mg PO Q6HPRN PRN (Reason: MILD PAIN)
oxycodone 5 mg Tablet
5 mg PO Q4HPRN PRN (Reason: moderate pain) Qty: 10 0RF
Eliquis 5 mg Tablet
5 mg PO BID
carvedilol 12.5 mg tablet
12.5 mg PO BID
docusate sodium [Colace] 100 mg Capsule
100 mg PO DAILYPRN PRN (Reason: CONSTIPATION)
Held
raloxifene 60 mg tablet
60 mg PO DAILY
Hold Instructions: Resume on 09/16/25. HOLD UNTIL YOU HAVE NORMAL MOBILITY AGAIN
Discharge Orders:
Discharge Patient (As Directed); Ordered 09/16/25
Ordered By: Hilary Sun
Discharge Date and Time
Print Language: YI
[2025-09-16] MEDS: TYLENOL 650 MG PO (15:18)
--- NOTE | 2025-09-16 15:25 | WOUNDNOTE ---
[facility] RN note: Confirmed with Dr. Marroquin, no need to re-wrap L knee high Jim other than vac dressing changes; next vac change on Tuesday and that patient can shower with water proof sleeve well covering vac dressing (vac pump disconnected during
shower). Patient and [facility] nurse Liaison Rose Nunn updated.
--- NOTE | 2025-09-16 15:35 | VNURNOTE ---
[facility] liaison met with pt and daughter at bedside. ABBY Dan present as well. All questions answered. Pt in agreement with plan to resume [facility] services. Resumption referral accepted in [facility]. [facility] home vac in place.
[2025-09-16 15:47] VITALS: BP 160/83
--- NOTE | 2025-09-16 17:45 | WOUNDNOTE ---
WO RN note: Faxed patient signed proof of delivery form for ready home vac pump #[id number] to Natty Crowder from [employer]. Notified [facility] via [employer] express portal of hospital rental vac ulta pump stop bill date as of 09/16/25 and milk pickup driver
(work order #[id number]).
== END 2025-09-16 17:36 | disposition home health service (06) | DRG 464 ==
LOC: 2 NORTH 18:44
PROVIDERS: Clinical Nurse Specialist Family Health; Emergency Medicine; Hospitalist; Student in an Organized Health Care Education/Training Program; ADMITTING PHYSICIAN Internal Medicine; ATTENDING PHYSICIAN Internal Medicine; CONSULT PHYSICIAN Internal Medicine Infectious Disease; CONSULT PHYSICIAN Student in an Organized Health Care Education/Training Program; EMERGENCY PHYSICIAN Emergency Medicine; FAMILY PHYSICIAN Family Medicine; OTHER PHYSICIAN Surgery Vascular Surgery
PROC: 0KBT0ZZ Excision of Left Lower Leg Muscle, Open Approach (ICD-10-PCS; 2025-09-12)
PROC: 0HRNXK3 Replacement of Left Foot Skin with Nonautologous Tissue Substitute, Full Thickness, External Approach (ICD-10-PCS; 2025-09-12)
DX: M31.0 Hypersensitivity angiitis (principal); E87.1 Hypo-osmolality and hyponatremia; L03.116 Cellulitis of left lower limb; Z86.718 Personal history of other venous thrombosis and embolism; I10 Essential (primary) hypertension; I87.2 Venous insufficiency (chronic) (peripheral); M81.0 Age-related osteoporosis without current pathological fracture; D53.9 Nutritional anemia, unspecified; Z79.01 Long term (current) use of anticoagulants; Z79.899 Other long term (current) drug therapy
CPT/HCPCS: 73610; 75635; 80053; 80202; 82607; 82728; 82746; 83540; 83550; 85025; 85045; 87045; 87046; 87070; 87075; 87076; 87077; 87185; 87186; 87205; 87324; 87427; 87449; 88304; 97112; 97116; 97162; 97163; 97164; 97166; 97530; 99215; 99285; Q9967